=== PATIENT | female | born 1970 | race Caucasian/White ===

== ENCOUNTER 2020-03-22 01:42 | Outpatient (RCR) | payer OTHER, MEDICAID, SELFPAY ==
--- OUTSIDE RECORDS SUMMARY | 2020-03-22 01:51 | XMS_ITS | Encounter Summary ---
:1970 Author Care Team Providers Name Role Phone Amy Hicks MD Primary Care Provider [phone] Gonzalo Dumont MD General Surgeon [phone] Reason for Visit breast Assessment and Plan 1. Malignant tumor of breast 49-year-old female with a trip le negative, node positive right breast cancer. We talked about the nature of the diagnosis as well as possible surgical options with her young age and a triple n egative tumor I would like her to see on cology prior to discussing surgery. A referral has been made to the [facility]. Discussion Note: None recorded.Patient educational handouts: No information available. Plan of Care Reminders Provider Appointments Opioid Amy padilla, Management 20 05/11/2020 8:40AM Lab None recorded. ? ? Referral None recorded. ? ? Procedures None recorded. ? ? Surgeries None recorded. ? ? Imaging None recorded. ? ? Medications Name Start Date ? ? alprazolam 0.5 mg tablet 03/10/2020 1-3 tabs every 4 hrs prn severe panic attack for 10 d ays carbidopa 25 mg-levodopa 100 mg tablet 03/10/2020 pm cyclobenzaprine 10 mg tablet 03/10/2020 pm enalapril maleate 5 mg tablet 03/10/2020 TAKE ONE TABLET BY MOUTH EVERY DAY folic acid 1 mg tablet 03/10/2020 am hydrocodone 10 mg-acetaminophen 325 mg tablet ? Take 1 tablet 3 times a day by oral route as needed f or 28 days. Keflex 500 mg capsule ? Take 1 capsule 3 times a day by oral route for 5 days . ketorolac 10 mg tablet 03/10/2020 Take 1 tablet twice a day by oral route as needed for 3 days. levothyroxine 112 mcg tablet 03/10/2020 TAKE ONE TABLET BY MOUTH EVERY DAY am lorazepam 0.5 mg tablet 03/10/2020 Take 1 tablet 3 times a day by oral route as needed. lorazepam 1 mg tablet ? Take 1 tablet twice a day by oral route for 28 days. metoprolol succinate ER 25 mg tablet,extended release 24 hr 03/10/2020 pm Narcan 4 mg/actuation nasal spray 03/10/2020 Take 1 spray as needed by nasal route. omeprazole 40 mg capsule,delayed release 03/10/2020 Take 1 capsule every day by oral route. senna 8.6 mg tablet 03/10/2020 Take 2 tablets every day by oral route. Viibryd 40 mg tablet 03/10/2020 am Vitamin B-12 1,000 mcg tablet 03/10/2020 am zolpidem 5 mg tablet 03/10/2020 pm Medications Administered None recorded. Vitals Height 5 ft 4 in Results Lab Results None recorded. Allergies Code Code System Name Reaction Severity Onset RxNorm Azithromycin Nausea ? ? 8639 RxNorm Prednisone ? ? ? Problems Name Status Onset Date Source ? 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 Panic Attack Active 01/02/2018 ? Urinary Incontinence Active 11/27/2018 ? Malignant Neoplasm of Female Breast Active 02/04/2020 ? Multiple Nodules of Lung Active 02/23/2020 ? Hypothyroidism Active ? History Diabetes Mellitus Active ? History Lipoprotein Deficiency Disorder Active ? History Anemia Active ? History Adjustment Disorder with Depressed Mood Active ? History Adjustment Disorder with Anxious Mood Active ? History Insomnia Active ? History Restless Legs Active ? History Migraine Active ? History Gastroduodenitis Active ? History Irritable Bowel Syndrome Active ? History Degeneration of Lumbosacral Intervertebral Active ? History Disc Cervical Disc Disorder Active ? History Lumbosacral Radiculopathy Active ? 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 History Therapeutic Drug Monitoring Assay Active ? History Adult Health Examination Active ? History Procedures Date Name Performed by ? 03/10/2020 Port Vascular Access Insertion Informati on not available Notes: Power port via Right IJ vein. 02/18/2020 Excision of Lymph Node Information not a vailable Notes: Lymphadenectomy, t horacic, regional, incl. mediastinal, Peritracheal Nodes 02/18/2020 Thoracoscopy Information not avai lable Notes: [facility] [place] 01/08/2018 Upper Gastrointestinal Endoscopy, W/ Inf ormation not available Balloon Dilation of Esophagus (Surg) 11/19/2005 Hernia Repair Information not avai lable 11/19/2005 Cholecystectomy Information not avai lable 10/04/2005 Section Information not avai lable Notes: elective repeat 10/04/2005 Tubal Ligation Information not avai lable 04/01/2001 Section Information not avai lable Notes: Breech 05/30/1989 Cryotherapy Information not avai lable ? Dilation and Curettage Information not a vailable 12/31/2019 MAMMO, Diagnostic, Tomosynthesis, [facility] Radiology (Internal) Unilateral [address] [place] [address] (Work Place) 12/31/2019 US, Breast, Unilateral [facility] pital Radiology (Internal) [address] [place] [address] (Work Place) 01/01/2020 MAMMO, Diagnostic, Tomosynthesis, [facility] Radiology (Internal) Bilateral [address] [place] [address] (Work Place) 01/01/2020 US, Guidance [facility] ([facility]) [address] [place] [address] (Work Place) 01/05/2020 Unlisted Imaging Order [facility] pital Radiology (Internal) [address] [place] [address] (Work Place) 01/12/2020 MAMMO, Diagnostic, Digital, Unilateral N [facility] Radiology (Internal) [address] [place] [address] (Work Place) 01/18/2020 CT, Chest + Abdomen + Pelvis, [place] [facility] [place] [address] (Work Place) Vaccine List Vaccine Type Hep B, adult 06/30/1996 03/03/2015?0.5 mL influenza, injectable, quadrivalent 02/14/2016?0.5 mL 01/08/2018 12/23/2018 01/07/2020 influenza, live, intranasal 01/04/2009 influenza, seasonal, injectable 12/28/2011 influenza, seasonal, injectable, preserv ative free 01/10/2010?0.5 mL 12/25/2010?0.5 mL 12/25/2012?0.5 mL 12/29/2013?0.5 mL 01/02/2017?0.5 mL MMR Tdap 11/28/2010?0.5 mL varicella Social History Tobacco Smoking Status Former Smoker Notes: quit Are you currently employed? Y Use IV drugs? N Blind or serious difficulty N Notes: We ars corrective seeing lenses, vision is co rrected Most Recent Tobacco Use 12/31/2019 Screening E-cigarette/Vape Status Never used electronic cigarettes Advance directive N Do you feel safe at home? Y Any marijuana use? N Tobacco-years of use 18 Any Vapor tobacco use? N Hand Dominance Right Live alone or with others? with others Notes: neeru es with 3 children Illicit drug use? N Alcohol intake None Smokeless Tobacco Status Never used smokeless tobacco Any cough, shortness of N breath, or fever? Current Method of Notes: bilat salpingectomy Control Hard of hearing or deaf in N one or both ears? Caffeine intake Occasional Drug Use N Currently or any N chance of current ? Location of recent travel none and date; or date of exposure to COVID19 patient? 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 Functional Status No Impairment. Past Encounters 01/18/2020 Malignant Tumor of Breast Gonzalo Dumont MD: [address] [place] [address], Ph. 01/15/2020 Malignant Neoplasm of Female Breast Yessy Whitaker, SHAYYM: [address] [place] [address], Ph. 01/01/2020 Mammographic Mass of Right Breast Yessy Whitaker, CNM: [address] [place] [address], Ph. 12/31/2019 Lump in Right Breast Yessy Whitaker, SHAYYM: [address] [place] [address], Ph. History of Present Illness Note: <p>49-year-old female seen for a right breast mass. Patient notes that she was trying on a bra about 6 weeks ago when she noticed a new finding in her right breast. She sought the attention of her primary care physician and subsequently had a mammogram as well as ultrasound of the breast. She then had a ultrasound directed breast and axillary node biopsy.

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 She had necrotic cells as well as tumor cells in the axillary node. Patient has no prior history of breast issues. Family history is negative for breast cancer.
</p> Review of Systems ? Notes: <p>Review of systems is nega tive from the standpoint of chest pain pressure previous ND. No cough sputum production or wheezing. She has a history of reflux but no outstanding hi story of abdominal pain. No history of melena hematochezia easy bleeding o r bruising.
</p> Physical Exam ? Notes: <p>On examination skin is wa rm and dry, her neck is supple there is no cervical or left axillary ad enopathy. In the right axilla she has a 1 cm firm node in the low axilla. Left breast examination is unremarkable. Examination of the right breast shows th e expected ecchymosis from her recent biopsies. She has a 2-1/2 to 3 cm mass in the 9:00 location of her right breast about 4 fingerbreadths lateral to th e areola. Her abdomen is soft, and nontender. She is neurologically intact.
</p>
--- OUTSIDE RECORDS SUMMARY | 2020-03-22 01:51 | XMS_ITS | Encounter Summary ---
:1970 Author Care Team Providers Name Role Phone Amy Hicks MD Primary Care Provider [phone] Gonzalo Dumont MD General Surgeon [phone] Reason for Visit Patient here to discuss Mammogram result s Assessment and Plan 1. Mammographic mass of right br east Pt aware, will schedule PATRICE. ? platelets, auto, blood ? prothrombin time ? partial thromboplastin merrick e ? US, guidance Discussion Note: None recorded.Patient educational handouts: No information available. Plan of Care Reminders Provider Appointments Opioid Management Amy Hicks, 20 05/11/2020 8:40AM Lab Platelets, Auto, [facility] Blood 01/01/2020 Hospital Lab (Internal) ? Prothrombin Time [facility] 01/01/2020 Hospital Lab (Internal) ? Partial [facility] ntr Thromboplastin Time 01/01/2020 Hospital Lab (Internal) Referral None recorded. ? ? Procedures None recorded. ? ? Surgeries None recorded. ? ? Imaging US, Guidance [facility] 01/01/2020 [facility] Radiolo gy (Internal) Medications Name Start Date ? ? alprazolam [...] 03/10/2020 pm Medications Administered None recorded. Vitals None recorded. Results Lab Results Date Name Specimen Result Interpretation Description Value Range Status Address ? 01/04/2020 Platelets, Auto, BLD ? Plt 223 130-450 Fi [facility] Blood 10*3/uL 10*3/uL Hospital Lab (Internal) : [address] 01/04/2020 Prothrombin Time BLD ? Pt 9.9 S 9.1-11.7 F inal [facility] L ab (Internal) : [address] ? ? BLD ? Inr 1.0 ? Final [facility] L ab (Internal) : [address] 01/04/2020 Partial BLD ? PTT 26 s 22-35 s Final [facility] Thromboplastin (Ip) Ho spital Lab Time (Internal) : [address] Allergies Code Code System Name Reaction Severity Onset 67225 RxNorm Azithromycin Nausea ? ? 8640 RxNorm Prednisone ? ? ? Problems Name [...] 02/18/2020 Thoracoscopy Information not avai lable Notes: [facility] 01/08/2018 Upper Gastrointestinal Endoscopy, W/ Inf ormation [...] not a vailable 12/31/2019 MAMMO, Diagnostic, Tomosynthesis, [facility] Radiology (Internal) Unilateral [address] [place] [address] (Work Place) 12/31/2019 US, Breast, Unilateral [facility] pital Radiology (Internal) [address] [place] [address] (Work Place) 01/01/2020 MAMMO, Diagnostic, Tomosynthesis, [facility] Radiology (Internal) Bilateral [address] [place] [address] (Work Place) 01/01/2020 US, Guidance [facility] Radiology (Internal) [address] [place] [address] (Work Place) Vaccine List Vaccine Type Hep [...] of exposure to COVID19 patient? 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 Functional Status No Impairment. Past Encounters 01/01/2020 Mammographic Mass of Right Breast Yessy Whitaker, SEAN: [address] [place] [address], Ph. 12/31/2019 Lump in Right Breast Yessy Whitaker CNM: [address] [place] [address], Ph. History of Present Illness Note: <p>Reviewed Bi-RADS category 5 results with pt, fact that there are some axillary lymph nodes that are involved.</p>Review of Systems: ROS as noted in the HPI Review of Systems None recorded. Physical Exam ? Notes: <p>Cooperative, well-groomed woman appropriately upset given the news she received today.</p>
--- OUTSIDE RECORDS SUMMARY | 2020-03-22 01:51 | XMS_ITS | Encounter Summary ---
:1970 Author Care Team Providers Name Role Phone Amy Hicks MD Primary Care Provider [phone] Gonzalo Dumont MD General Surgeon [phone] Reason for Visit None recorded. Assessment and Plan 1. Malignant neoplasm of female breast Patient has appointment mandi mcguire scheduled with Dr. Dumont for next . I called his office, and they will see her on Saturday. Discussion Note: None recorded.Patient educational handouts: No information available. Plan of Care Reminders Provider Appointments Opioid Amy padilla, Management 05/11/2020 8:40AM Lab None recorded. ? ? [...] recorded. Vitals None recorded. Results Lab Results None recorded. Allergies Code Code System Name Reaction Severity Onset RxNorm Azithromycin Nausea ? ? 86 RxNorm Prednisone ? ? ? Problems Name [...] 02/18/2020 Thoracoscopy Information not avai lable Notes: [facility] [place] 01/08/2018 Upper Gastrointestinal Endoscopy, W/ Inf ormation [...] not a vailable 12/31/2019 MAMMO, Diagnostic, Tomosynthesis, [facility] Radiology (Internal) Unilateral [address] [place] [address] (Work Place) 12/31/2019 US, Breast, Unilateral [facility] Radiology (Internal) [address] [place] [address] (Work Place) 01/01/2020 MAMMO, Diagnostic, Tomosynthesis, [facility] Radiology (Internal) Bilateral [address] [place] [address] (Work Place) 01/01/2020 US, Guidance [facility] Radiology (Internal) [address] [place] [address] (Work Place) 01/05/2020 Unlisted Imaging Order [facility] Radiology (Internal) [address] [place] [address] (Work Place) 01/12/2020 MAMMO, Diagnostic, Digital, Unilateral N [facility] Radiology (Internal) [address] [place] [address] (Work Place) Vaccine List Vaccine Type Hep B, adult 06/30/1996 03/03/2015?0.5 mL influenza, injectable, quadrivalent 02/14/2016?0.5 mL 01/08/2018 12/23/2018 01/07/2020 influenza, live, intranasal 01/04/2009 influenza, seasonal, injectable 12/28/2011 influenza, seasonal, injectable, preserv ative free 01/10/2010?0.5 mL 12/25/2010?0.5 mL 12/25/2012?0.5 mL 12/29/2013?0.5 mL 01/02/2017?0.5 mL MMR Tdap 11/28/2010?0.5 mL varicella Social History Tobacco Smoking Status Former Smoker Notes: quit 20 00 Are you currently employed? Y Use IV [...] of exposure to COVID19 patient? 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 Functional Status No Impairment. Past Encounters 01/15/2020 Malignant Neoplasm of Female Breast Yessy Whitaker, SHAYYM: [address] [place] [address], Ph. 01/01/2020 Mammographic Mass of Right Breast Yessy Whitaker, SHAYYM: [address] [place] [address], Ph. 12/31/2019 Lump in Right Breast Yessy Whitaker, SHAYYM: [address] [place] [address], Ph. History of Present Illness Note: <p>Here for results discussion.</p>Review of Systems: ROS as noted in the HPI Review of Systems None recorded. Physical Exam ? Notes: <p>Cooperative, well-groomed woman appropriately upset given diagnosis.</p>
--- OUTSIDE RECORDS SUMMARY | 2020-03-22 01:51 | XMS_ITS | Encounter Summary ---
:1970 Author Care Team Providers Name Role Phone Amy Hicks MD Primary Care Provider [phone] Gonzalo Dumont MD General Surgeon [phone] Reason for Visit Patient reports breast lump right breast that is a little larger than a pea. No family hx of breast cancer. Lump is suhas nful. Patient's last Mammo was 2018. Assessment and Plan 1. Lump in right breast Imaging ordered. [facility] call [facility] h results when available. ? MAMMO, diagnostic, tomosyn thesis, unilateral ? US, breast, unilateral Discussion Note: None recorded.Patient educational handouts: No information available. Plan of Care Reminders Provider Appointments Opioid Amy padilla, Management 20 05/11/2020 8:40AM Lab None recorded. ? ? Referral None recorded. ? ? Procedures None recorded. ? ? Surgeries None recorded. ? ? Imaging MAMMO, [facility] try Diagnostic, 12/31/2019 [facility] Radiolo gy Tomosynthesis, (Internal) Unilateral ? US, Breast, [facility] Unilateral 12/31/2019 [facility] Radiolo gy (Internal) Medications Name Start Date [...] pm Medications Administered None recorded. Vitals Height Weight BMI Blood Pressure 5 ft 4 in 181 lbs 31.1 kg/m2 120/70 mm[Hg] Results Lab Results None recorded. Allergies Code Code System Name Reaction Severity Onset 97446 RxNorm Azithromycin Nausea ? ? 8640 RxNorm [...] 02/18/2020 Thoracoscopy Information not avai [place]able Notes[place] [facility] [place] Upper Gastrointestinal Endoscopy, W/ Inf [...] not a vailable 12/31/2019 MAMMO, Diagnostic, Tomosynthesis, [facility] Radiology (Internal) Unilateral [address] [place], [place] [id number] (Work Place) 12/31/2019 US, Breast, Unilateral [facility] Radiology (Internal) [address] [place] [address] (Work Place) Vaccine List Vaccine Type [...] rrected Most Recent Tobacco Use 12/31/2019 Screening Advance directive N E-cigarette/Vape Status Never used electronic cigarettes Do you feel safe at home? Y Any marijuana use? N Tobacco-years of use 18 Any Vapor tobacco use? N Alcohol intake None Illicit drug use? N Live alone or with others? with others Notes: neeru es with 3 children Hand Dominance Right Smokeless Tobacco Status Never used smokeless tobacco Any cough, shortness of N breath, or fever? Current Method of Notes: bilat salpingectomy Control Hard of hearing or deaf in N one or both ears? Caffeine intake Occasional Drug Use N Currently or any N chance of current ? Location of recent travel none and date; or date of exposure to COVID19 patient? 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 Functional Status No Impairment. Past Encounters 12/31/2019 Lump in Right Breast Yessy Whitaker, CNM: [address] [place] [address], Ph. History of Present Illness ? Breast Mass Reported By: Patient HPI: Location: right, upper outer quadrant. Onset/Timin day, sudden. Quality: painful, radiating. Severity: moderate. Modifying Factors: touch, pressure. Associated Symptoms: no fever, no skin redness, no nipple discharge, no breast swelling, arm pain Review of Systems: ROS as noted in the HPI Review of Systems None recorded. Physical Exam ? Breast Exam Reported By: Patient Shearing Machine Tender: Shearing Machine Tender: enzo morrow Breast: Inspection/Palpation: no ski n changes, no erythema, no induration, no abnormal secretions, normal nipple appearance, non tender axillary lymph nodes, abnormal tenderness o f the right breast, mass in the right breast
--- OUTSIDE RECORDS SUMMARY | 2020-03-22 01:51 | XMS_ITS ---
:1970 Author Care Team Providers Name Role Phone DORENE DUMONT MD General Surgeon [phone] NAM IGLESIAS MD Primary Care Provider [phone] Allergies Code Code Name Reaction Severity Status Onset System 73749 RxNorm Azithromycin Nausea ? Active ? 8640 RxNorm Prednisone ? ? Active ? 390443 RxNorm Dilaudid ? ? Deactivated ? 020801 RxNorm Zithromax ? ? Deactivated ? Medications Name Status Start Date Stop Date ? ? acetaminophen 300 mg-codeine 30 mg tablet Completed 201110/18/2011 1 (one) Tablet: every six hours, as needed acyclovir 400 mg tablet Completed ? 03/04/20 20 alprazolam 0.5 mg tablet Active 03/10/2020 Not pratik ilable 1-3 tabs every 4 hrs prn severe panic attack for 10 days amoxicillin 500 mg capsule Completed 01/09/201301/16 1 Capsule: bid - twice daily amoxicillin 500 mg tablet Completed 03/21/20162016 1 (one) Tablet: bid - twice daily amoxicillin 875 mg tablet Completed 04/12/20112011 1 (one) Tablet: Bid - twice daily amoxicillin 875 mg-potassium clavulanate 125 mg tablet Completed 05/29/2011 06/08/2011 1 Tablet: bid - twice daily atropine 1 % eye drops Completed ? 0 amoxicillin 500 mg-potassium Active ? Not available clavulanate 125 mg tablet biotin Completed ? 03/18/2018 5000mg daily carbidopa 25 mg-levodopa 100 mg tablet Active 0 Not available pm Celebrex 200 mg capsule Completed 05/29/2013 09/02/19 14 1 (one) Capsule Capsule: qd - daily Cleocin 100 mg vaginal suppository Completed 05/16/2005 11/22/2009 1 (one) Suppository: Daily Compazine 25 mg rectal suppository Completed 03/29/2005 02/27/2006 1 (one) Suppository: Twice daily cortisone Completed ? 11/27/2018 BID cyclobenzaprine 10 mg tablet Active 03/10/2020 Not available pm Cymbalta 30 mg capsule,delayed release Completed 3 04/11/2012 1 (one) Capsule Part: daily Cymbalta 60 mg capsule,delayed release Completed 4 10/13/2013 2 (two) Capsule Part: daily cyproheptadine 4 mg tablet Completed ? 02/16 desipramine 10 mg tablet Completed 05/04/2014 015 3 Tablet: at bedtime Diflucan 100 mg tablet Completed 08/02/2011 2 1 (one) Tablet: qam - every morning Dilaudid 4 mg tablet Completed 04/28/2013 04/28/2013 1.5 to two Tablet: every 4 - 6 hours as needed for sciatica docusate sodium 100 mg capsule Completed ? 1 05/05/2019 Take 1 capsule twice a day by oral route for 10 days. doxycycline hyclate 100 mg tablet Completed 12/21/2015 12/31/2015 1 (one) Tablet: bid - twice daily enalapril maleate 5 mg tablet Active 03/10/2020 No t available esomeprazole magnesium 40 mg capsule,delayed release Completed 07/04/2017 07/04/2017 1 (one) Capsule: qd - daily estradiol 0.01% (0.1 mg/gram) Completed ? vaginal cream Estring 2 mg (7.5 mcg/24 hour) Completed ? 0 11/26/2019 vaginal ring Fish Oil 340 mg-1,000 mg capsule Completed 05/04/2010 11/28/2010 1 (one) Capsule: daily fluoxetine 20 mg capsule Completed ? 018 fluoxetine 40 mg capsule Completed ? 018 folic acid 1 mg tablet Active 03/10/2020 Not avail able am folic acid 400 mcg tablet Completed 05/16/20052009 4 Tablet: Daily hydrocodone 10 mg-acetaminophen 325 mg tablet Active ? Not available Take 1 tablet 3 times a day by oral route as needed for 28 days . hydroxyzine HCl 10 mg tablet Completed 04/28/2013 1 Tablet: daily at night if needed for itch. isosorbide dinitrate 10 mg tablet Completed 09/17/2014 10/06/2014 1 (one) Tablet: daily Keflex 500 mg capsule Active ? Not availa ble Take 1 capsule 3 times a day by oral route for 5 days. ketorolac 10 mg tablet Active 03/10/2020 Not avail able Take 1 tablet twice a day by oral route as needed for 3 days. lactulose 10 gram/15 mL oral solution Completed 07/07/2013 07/07/2013 1-2 Tablespoon(s): daily prn constipation levothyroxine 100 mcg tablet Completed ? Take 1 tablet every day by oral route for 30 days. levothyroxine 112 mcg tablet Active 03/10/2020 Not available TAKE ONE TABLET BY MOUTH EVERY DAY am levothyroxine 25 mcg tablet Completed ? 01/30 Take 0.5 tablets every day by oral route for 30 days. loratadine 10 mg tablet Completed 04/28/2013 05/22/19 14 1 Tablet: daily for itching lorazepam 0.5 mg tablet Active 03/10/2020 Not avai lable Take 1 tablet 3 times a day by oral route as needed. lorazepam 1 mg tablet Active ? Not availa ble Take 1 tablet twice a day by oral route for 28 days. meclizine 12.5 mg tablet Completed ? 018 metoprolol succinate ER 25 mg tablet,extended release 24 hr Acti ve 03/10/2020 Not available pm metronidazole 0.75 % topical gel Completed 04/24/2010 04/29/2010 1 Gel: one applicator intravaginal qhs metronidazole 500 mg tablet Completed 03/02/201409/2013 1 (one) Tablet: bid - twice daily Narcan 4 mg/actuation nasal spray Active 03/10/2020 Not available Take 1 spray as needed by nasal route. Neurontin 100 mg capsule Completed 04/11/2012 013 1 Capsule: at hs and may increase slowly to six Qhs Nifedical XL 30 mg tablet,extended release Completed 06/2311/28/2010 1 Tablet ER 24HR: daily nystatin (bulk) 50 million unit powder Completed 3 04/11/2012 Apply Powder: three times daily to yeast rash. ofloxacin 0.3 % ear drops Completed 11/28/20102010 10 Drop(s): once a day ofloxacin 0.3 % eye drops Completed ? 2018 omeprazole 20 mg Unknown ? Not available capsule,delayed release omeprazole 40 mg capsule,delayed release Active 020 Not available Take 1 capsule every day by oral route. ondansetron HCl 4 mg tablet Completed 05/31/201509/2015 1 (one) Tablet Tablet: every six hours, as needed if migraine oxycodone 5 mg capsule Completed 10/13/2013 4 2 Capsule: Every 4 to 6 hours as needed pantoprazole 40 mg tablet,delayed release Completed 201210/08/[address]: daily prednisolone acetate 1 % eye Completed ? drops,suspension prednisone Completed ? 03/18/2018 Eye drops to right eye Q 2 hours prednisone 10 mg tablet Completed 04/02/2013 04/16/19 14 3 (three) Tablet: in AM for 14 days ProAir HFA 90 mcg/actuation Completed ? 08/2017 aerosol inhaler promethazine 25 mg tablet Completed 01/19/20152014 1 Tablet: Every 6 hours as needed Questran 4 gram powder for susp in a packet Completed 09/2910/08/2012 quarter - half Packet: QD to bid ranitidine 300 mg tablet Completed 08/12/2013 014 1 (one) Tablet Tablet: two times daily, as needed selenium sulfide 2.5 % lotion Completed 11/22/2009 senna 8.6 mg tablet Active 03/10/2020 Not availabl e Take 2 tablets every day by oral route. Terazol 3 0.8 % vaginal cream Completed 04/11/2012 Apply Cream: to rash area tid Terazol 7 0.4 % vaginal cream Completed 09/29/2010 Apply to vulva Cream: bid before & during period. triamcinolone acetonide 0.025 Completed ? % topical cream triamcinolone acetonide 0.1 % topical cream Completed 10/3111/22/2009 1 (one) Application(s): three times daily Viibryd 10 mg (7)-20 mg (23) Completed ? tablets in a dose pack Viibryd 20 mg tablet Completed ? 11/27/2017 Viibryd 40 mg tablet Active 03/10/2020 Not availab le am Vitamin B-12 1,000 mcg tablet Active 03/10/2020 N ot available am zolpidem 5 mg tablet Active 03/10/2020 Not availab le pm zolpidem ER 6.25 mg tablet,extended release,multiphase Completed 08/18/2015 08/18/2015 1 (one) Tablet ER: at bedtime Problems Name Status Onset Date Source ? 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 Panic Attack Active 01/02/2018 ? Tendinitis of Elbow or Forearm Unknown 09/08/2018 ? Urinary Incontinence Active 11/27/2018 ? Malignant Neoplasm of Female Breast Active 02/04/2020 ? Multiple Nodules of Lung Active 02/23/2020 ? Hypothyroidism Active ? History Diabetes Mellitus Active ? History Lipoprotein Deficiency Disorder Active ? History Anemia Active ? History Dysthymia Unknown ? History Adjustment Disorder with Depressed Mood Active ? History Adjustment Disorder with Anxious Mood Active ? History Insomnia Active ? History Restless Legs Active ? History Migraine Active ? History Mononeuritis of Upper Limb and Unknown ? H istory Mononeuritis Multiplex Uveitis Unknown ? History Labyrinthitis Unknown ? History Acute Bronchitis Unknown ? History Disorder of Upper Respiratory System Unknown ? History Pneumonia Unknown ? History Disorder of Esophagus Unknown ? History Gastroduodenitis Active ? History Acute Gastritis Unknown ? History Irritable Bowel Syndrome Active ? History Vulvovaginitis Unknown ? History Localized Infection of Skin AND/OR Unknown ? History Subcutaneous Tissue Joint Pain Unknown ? History Degeneration of Lumbosacral Active ? Hist ory Intervertebral Disc Cervical Disc Disorder Active ? History Sciatica Unknown ? History Lumbosacral Radiculopathy Active ? Histor y Backache Unknown ? History Congenital Anomaly of Esophagus Active ? History Pyrexia of Unknown Origin Unknown ? Histor y Lack of Energy Unknown ? History Headache Unknown ? History Dyspnea Unknown ? History Cough Unknown ? History Chest Pain Unknown ? History Impaired Glucose Tolerance Unknown ? Histo ry Hyperglycemia Unknown ? History Abnormal Level of Blood Mineral Unknown ? History Active Immunization Unknown ? History Therapeutic Drug Monitoring Assay Active ? History Adult Health Examination Active ? History Disorder of Esophagus Unknown ? History SNOMED CT Concept Unknown ? History Inflammatory Disorder of Digestive Tract Unknown ? History Procedure by Method Unknown ? History Enzyme Level - Finding Unknown ? History Procedures Date Name Performed by ? 03/10/2020 Port Vascular Access Insertion Informati on not available Notes: Power port via Right IJ vein. 02/18/2020 Excision of Lymph Node Information not a vailable Notes: Lymphadenectomy, t horacic, regional, incl. mediastinal, Peritracheal Nodes 02/18/2020 Thoracoscopy Information not avai lable Notes: [facility] 01/08/2018 Upper Gastrointestinal Endoscopy, W/ Inf ormation [...] Dilation and Curettage Information not a vailable 02/26/2018 MAMMO, Screening, Tomosynthesis, [facility] Radiology (Internal) Bilateral [address] [place] [address] (Work [address]) 05/14/2019 XR, Cervical Spine, 4 or 5 View [facility] Radiology (Internal) [address] [place] [address] (Work Place) 12/31/2019 MAMMO, Diagnostic, Tomosynthesis, [facility] Radiology (Internal) Unilateral [address] [place] [address] [address] (Work Place) 12/31/2019 US, Breast, Unilateral [facility] (Internal) [address] [place] [address] (Work Place) 01/01/2020 MAMMO, Diagnostic, Tomosynthesis, [facility] Radiology (Internal) Bilateral [address] [place] [address] (Work Place) 01/01/2020 US, Guidance [facility] ([facility]) [address] [place] [address] [address] (Work Place) 01/05/2020 Unlisted Imaging Order [facility] (Internal) [address] [place] [address] [address] (Work Place) 01/12/2020 MAMMO, Diagnostic, Digital, Unilateral N orth [facility] Radiology (Internal) [address] [place] [address] (Work Place) 01/18/2020 CT, Chest + Abdomen + Pelvis, W/ [facility] (I maging/Xray) [place] [address] (Work Place) 01/22/2020 NM, Bone Scan [facility] (Imaging/Xray) [place] [address] (Work Place) 01/22/2020 CT, Chest + Abdomen + Pelvis, W/ [facility] (I maging/Xray) [place] [address] (Work Place) Results Lab Results Date Name Specimen Result Interpretation Description Value Range Status Address ? 02/17/2020 Drug Screen, UR ? Thc negative neg (50 [place] Urine NG/mL NG/mL) [facility] : [address] t ? ? UR ? Pcp negative neg (25 Final [facility] NG/mL) [facility] ab (Internal) : [address] t ? ? UR ? Mague negative neg (150 [facility] [place] NG/mL) [facility] (Internal) : [address] t ? ? UR ? Met negative neg (500 Final [place] NG/mL) [facility] ab (Internal) : [address] t ? ? UR ABNORM Opi positive neg (100 [facility] [place] AL NG/mL) [facility] L ab (Internal) : [address] t ? ? UR ? Amp negative neg (500 Final [place] NG/mL) [facility] (Internal) : [address] t ? ? UR ? Bzo negative neg (150 Final [place] NG/mL) [facility] (Internal) : [address] t ? ? UR ABNORM Tca positive neg (300 Final [place] AL NG/mL) [facility] ab (Internal) : [address] t ? ? UR ? Mtd negative neg (200 [facility] [place] NG/mL) [facility] L [facility] (Internal) : [address] ? ? UR ? Bar negative neg (200 [facility] [place] NG/mL) [facility] (Internal) : [address] ? ? UR ? Oxy negative neg (100 [facility] [place] NG/mL) [facility]) : [address] ? ? UR ? Ppx negative neg (300 [facility] [place] NG/mL) [facility] (Internal) : [address] ? ? UR ? Bup negative neg (10 Final [place] NG/mL) [facility] (Internal) : [address] 02/17/2020 CBC W/ Auto BLD Low Wbc 4.5 5.0-10.0 Final [place] Diff 10*3/uL 10*3/uL [facility] L ab (Internal) : [address] ? ? BLD Low Rbc 4.07 4.10-5.30 Final [place] 10*6/uL 10*6/uL [facility] (Internal) : [address] t ? ? BLD ? Hgb 13.2 g/dL 12.0-16.0 Final Nort h g/dL [facility] L [facility] (Internal) : [address] t ? ? BLD ? Hct 39.5 % 37.0-47.0 Final [facility] L ab (Internal) : [address], [place] t ? ? BLD High Mcv 97.1 fL 80.0-96.0 Final [facility] L ab (Internal) : [address] t ? ? BLD High Mch 32.4 pg 26.0-32.0 Final [place] pg [facility] L ab (Internal) : [address] t ? ? BLD ? Mchc 33.4 g/dL 31.0-35.0 Final Nort h g/dL [facility] L ab (Internal) : [address] t ? ? BLD ? Rdw 12.0 % 11.5-14.5 Final [facility] L ab (Internal) : [address] t ? ? BLD ? Plt 209 130-450 Final [place] 10*3/uL 10*3/uL [facility] L ab (Internal) : [address] t ? ? BLD ? Anc 3.11 ? Final [place] 10*3/uL [facility] L [facility] (Internal) : [address] t ? ? BLD ? Nlr 3.08 0.00-3.20 Final [facility] (Internal) : [address] t ? ? BLD ? Neutro 68.6 % 40.0-75.0 Final [facility] L [facility] (Internal) : [address] t ? ? BLD ? Lymph 22.2 % 20.0-50.0 Final [facility] L [facility] (Internal) : [address] t ? ? BLD ? Calvert 6.6 % 2.0-10.[address] [facility] L ab (Internal) : [address] t ? ? BLD ? Eos 2.0 % 1.0-6.0 % Final [facility] L ab (Internal) : [address] t ? ? BLD ? Baso 0.4 % 0.0-1.0 % Final [facility] L ab (Internal) : [address] t ? ? BLD ? Ig 0.2 % 0.0-0.9 % Final [facility] (Internal) : [address] t 02/17/2020 CMP, Serum or S ? g/r 97 mg/dL 74-106 [place] Plasma mg/dL [facility] L ab (Internal) : [address] t ? ? S ? Bun 16 mg/dL 7-17 Final [place] mg/dL [facility] L [facility] (Internal) : [address] t ? ? S ? Crea 1.00 mg/dL 0.52-1.04 Final Nor th mg/dL [facility] L ab (Internal) : [address] t ? ? S High Ca 10.4 mg/dL 8.4-10.2 Final Nort h mg/dL [facility] L ab (Internal) : [address] t ? ? S ? Na 139 mmol/L 137-145 Final [place] mmol/L [facility] L [facility] (Internal) : [address] t ? ? S ? K 4.4 mmol/L 3.5-5.1 Final [facility] mmol/L [facility] : [address] t ? ? S ? Cl 102 mmol/L 98-107 Final [facility] mmol/L [facility] : [address] t ? ? S ? Tco2 28.0 22.0-30.0 Final [facility] mmol/L mmol/L [facility] ([facility]) : [address] t ? ? S ? Tp 7.9 g/dL 6.3-8.2 Final [facility] g/dL [facility] ([facility] : [address] t ? ? S ? Alb 4.8 g/dL 3.5-5.0 Final [facility] g/dL [facility] ([facility] : [address] t ? ? S ? Tbil 0.7 mg/dL 0.2-1.3 Final [facility] mg/dL [facility] ([facility] : [address] t ? ? S ? Alp 83 U/L 50-136 Final [facility] U/L [facility] ([facility] : [address] t ? ? S ? Alt 28 U/L 9-52 U/L Final [facility] (Sgpt) [facility]Internal[facility] : [address] t ? ? S ? Ast 28 U/L 14-36 U/L Final [place] (Sgot) [facility] (Internal[facility] : [address] t 02/17/2020 T4, Free, S ? Ft4 1.10 NG/dL 0.78-2.19 Fin al [facility] Serum NG/dL [facility] ([facility] : [address] t 02/17/2020 Lipid Panel, S High Chol 249 mg/dL 50-200 [place] Serum mg/dL [facility] (Internal[facility] : [address] t ? ? S High Trig 217 mg/dL 10-150 Final [facility] mg/dL [facility] ([facility]) : [address] t ? ? S Low Hdl 36 mg/dL 40-60 Final [facility] mg/dL [facility] (Internal[facility] : [address] t ? ? S High Ldl 170 mg/dL 0-130 Final [facility] mg/dL [facility] (Internal) : [address] [place] 02/17/2020 TSH, Serum or S High Tsh 4.81 0.47-4.68 Fin al [place] Plasma u[IU]/mL u[IU]/mL [facility] L ab (Internal) : [address] 02/17/2020 HbA1C BLD ? Ha1C 5.1 % 4.0-6.0 % Final Nor th (Hemoglobin Count ry a1C), Blood Hospi mario Lab (Internal) : [address] 02/17/2020 Opiates, UR ? Codeine negative <50.0 Final [place] Qualitative, NG/mL NG/mL [facility] L ab (Internal) : [address] t ? ? UR ? Morphin negative <50.0 Final [place] e NG/mL NG/mL [facility] (Internal) : [address] t ? ? UR High Hydroco 1959.2 <50.0 Final [place] done NG/mL NG/mL [facility] (Internal) : [address] t ? ? UR High Hydromo 1227.4 <50.0 Final [place] rphone NG/mL NG/mL [facility] L ab (Internal) : [address] t ? ? UR ? Oxycodo negative <50.0 Final [place] ne NG/mL NG/mL [facility] (Internal) : [address] t ? ? UR ? Oxymorp negative <50.0 Final [place] ani NG/mL NG/mL [facility] (Internal) : [address] 02/17/2020 Tricyclic UR ? Specime urine ? Final N orth Antidepressan n Type Cou ntry ts, QN, Hospital Lab Screen, Urine (In ternal): [address] t ? ? UR ? Antidep ++positive ? Final Nort h ressant ++ [facility] L ab (Internal) : [address] t ? ? UR ? Amitrip negative ? Final [facility] (Internal[facility] : [address] [place] ? ? UR ? Nortrip negative ? Final [facility] Hospital L ab (Internal) : [address], [place] ? ? UR ? Imipram negative ? Final [facility] L ab (Internal) : [address], [place] ? ? UR ? Desipra negative ? Final [facility] L ab (Internal) : [address], [place] ? ? UR ? Sertral negative ? Final [facility] L ab (Internal) : [address], [place] ? ? UR ? Desmeth negative ? [facility] : [address], [place] ? ? UR ? Fluoxet negative ? Final [facility] L ab (Internal) : [address], [place] ? ? UR ? Norfluo negative ? Final [facility] L ab (Internal) : [address], [place] ? ? UR ? Clomipr negative ? Final [facility] L [facility] (Internal) : [address] ? ? UR ? Desmeth negative ? [facility] : [address] ? ? UR ? Doxepin negative ? Final [facility] (Internal) : [address], [place] ? ? UR ? Desmeth negative ? Final [facility] : [address], [place] ? ? UR ? Maproti negative ? Final [facility] L ab (Internal) : [address], [place] ? ? UR ? Protrip negative ? Final [facility] L ab (Internal) : [address], [place] ? ? UR ? Trimipr negative ? Final [facility] L ab (Internal) : [address], [place] ? ? UR ? Paroxet negative ? Final [facility] L ab (Internal) : [address], [place] ? ? UR ? Cyclobe ++positive ? Final Nort h nzaprine ++ [facility] L ab (Internal) : [address], [place] 02/15/2020 Send Out, MISC ? S/O covid sent ? Final [facility] Hospital L ab (Internal) : [address] ? ? MISC ? Status sent to ? Final [facility] L [facility] (Internal) : [address] [facility] 01/21/2020 Creatinine, S ? Crea 1.00 mg/dL 0.52-1.04 F inal [place] Serum or mg/dL [facility] L ab (Internal) : [address] [facility] 01/12/2020 Pathology TISS ? Report (see ? Corrected [place] Study below) [facility] L ab (Internal) : [address] [facility] 01/04/2020 Platelets, BLD ? Plt 223 130-450 Final N orth Auto, Blood 10*3/uL 10*3/uL [facility] L ab (Internal) : [address] [facility] 01/04/2020 Prothrombin BLD ? Pt 9.9 S 9.1-11.7 Final [facility] L ab (Internal) : [address] ? ? BLD ? Inr 1.0 ? Final [facility] L ab (Internal) : [address] [facility] 01/04/2020 Partial BLD ? PTT 26 s 22-35 s Final Nort h Thromboplasti (Ip) [facility] L ab (Internal) : [address] [place] 12/10/2018 TSH, Serum or S - Tsh 1.12 0.47-4.68 Fin [facility] Plasma u[IU]/mL u[IU]/mL [facility] L ab (Internal) : [address] [facility] 12/10/2018 T4, Free, S - Ft4 0.93 NG/dL 0.78-2.19 Fin [facility] Serum NG/dL [facility] L ab (Internal) : [address] [facility] 12/10/2018 Ferritin, S - Ferr 45 NG/mL 11-264 Final orth Serum or NG/mL [facility] L ab (Internal) : [address] t 06/12/2018 CMP, Serum or S High g/r 124 mg/dL 74-106 Fin [facility] Plasma mg/dL [facility] L ab (Internal) : [address] t ? ? S - Bun 15 mg/dL 7-17 Final [facility] mg/dL [facility] (Internal[facility] : [address] ? ? S - Crea 0.80 mg/dL 0.52-1.04 Final Nor th mg/dL [facility] (Internal) : [address] t ? ? S - Ca 9.3 mg/dL 8.4-10.2 Final [facility] mg/dL [facility] (Internal) : [address] t ? ? S - Na 138 mmol/L 137-145 Final [facility] mmol/L [facility] (Internal) : [address] t ? ? S - K 3.9 mmol/L 3.5-5.1 Final [facility] mmol/L [facility] (Internal) : [address] t ? ? S - Cl 102 mmol/L 98-107 Final [facility] mmol/L [facility] (Internal) : [address] ? ? S - Tco2 26.0 22.0-30.0 Final [facility] mmol/L mmol/L [facility] (Internal) : [address] ? ? S - Tp 7.4 g/dL 6.3-8.2 Final [facility] g/dL [facility] (Internal[facility] : [address] t ? ? S - Alb 4.2 g/dL 3.5-5.0 Final [facility] g/dL [facility] (Internal[facility] : [address] ? ? S - Tbil 0.9 mg/dL 0.2-1.3 Final [facility] mg/dL [facility] ([facility] : [address] ? ? S - Alp 87 U/L 50-136 Final [facility] U/L [facility] ([facility]) : [address] ? ? S High Alt 68 U/L 9-52 U/L Final [facility] (Sgpt) [facility] (Internal) : [address] t ? ? S High Ast 45 U/L 14-36 U/L Final [place] (Sgot) [facility] Hospital L ab (Internal) : [address] t 06/12/2018 Folate, Serum S - Folate >17.00 2.76-20.0 Fi nal [place] NG/mL 0 NG/mL [facility] Hospital L ab (Internal) : [address] 06/12/2018 Vitamin B12, S - Vit B12 895.0 239.0-931 Fi nal [place] Serum pg/mL .0 pg/mL [facility] : [address] 03/19/2018 CBC W/ Auto BLD Low Wbc 3.8 5.0-10.0 Final [place] Diff 10*3/uL 10*3/uL [facility] Hospital L ab (Internal) : [address], Barbara petersen ? ? BLD - Rbc 4.29 4.10-5.30 Final [place] 10*6/uL 10*6/uL [facility] Hospital L ab (Internal) : [address] ? ? BLD - Hgb 13.7 g/dL 12.0-16.0 Final Nort h g/dL [facility] Hospital L ab (Internal) : [address] [place] ? ? BLD - Hct 41.3 % 37.0-47.0 Final [facility] Hospital L ab (Internal) : [address] [place] ? ? BLD High Mcv 96.3 fL 80.0-96.0 Final [facility] Hospital L ab (Internal) : [address], [place] peters[place] ? ? BLD - Mch 31.9 pg 26.0-32.0 Final [place] pg [facility] Hospital L ab (Internal) : [address] [place] ? ? BLD - Mchc 33.2 g/dL 31.0-35.0 Final Nort h g/dL [facility] Hospital L ab (Internal) : [address] ? ? BLD - Rdw 12.1 % 11.5-14.5 Final [facility] Hospital L ab (Internal) : [address] ? ? BLD - Plt 208 130-450 Final [place] 10*3/uL 10*3/uL [facility] Hospital L ab (Internal) : [address] [place] ? ? BLD - Anc 2.16 ? Final [place] 10*3/uL [facility] Hospital L ab (Internal) : [address] ? ? BLD - Neutro 57.4 % 40.0-75.0 Final [place] % [facility] L ab (Internal) : [address] ? ? BLD - Lymph 31.4 % 20.0-50.0 Final [place] % [facility] Hospital L ab (Internal) : [address] ? ? BLD - Calvert 7.7 % 2.0-10.0 Final [place] % [facility] L ab (Internal) : [address] ? ? BLD - Eos 3.2 % 1.0-6.0 % Final [facility] (Internal) : [address] ? ? BLD - Baso 0.3 % 0.0-1.0 % Final [facility] (Internal) : [address], [place] t ? ? BLD - Ig 0.0 % 0.0-0.9 % Final [facility] ([facility]) : [address] t 03/19/2018 Hepatic S - Tbil 1.1 mg/dL 0.2-1.3 Final N orth Function mg/dL [facility] Panel, Serum Hosp ital Lab (Internal) : [address] ? ? S High Dbil 0.5 mg/dL 0.0-0.3 Final [place] mg/dL [facility] Hospital L ab (Internal) : [address] ? ? S - Alp 72 U/L 50-136 Final [place] U/L [facility] Hospital L ab (Internal) : [address] ? ? S High Alt 100 U/L 9-52 U/L Final [place] (Sgpt) [facility] L ab (Internal) : [address] ? ? S High Ast 76 U/L 14-36 U/L Final [place] (Sgot) [facility] Hospital L ab (Internal) : [address] ? ? S High Ggt 59 U/L 12-43 U/L [facility] ([facility]) : [address] ? ? S - Tp 7.6 g/dL 6.3-8.2 Final [place] g/dL [facility] Hospital L ab (Internal) : [address], [place] ? ? S - Alb 4.5 g/dL 3.5-5.0 Final [place] g/dL [facility] L ab (Internal) : [address] 03/19/2018 Hepatitis S - Hepatit negative negative Kori l [facility] is a IgM Country (A+B+C), Ab, S Hospital Lab Acute, Serum (Int ernal): [address] ? ? S - Hbs negative negative Final [place] Antigen, [facility] L ab (Internal) : [address] ? ? S - Hbc IgM negative negative Final Nort h Ab, [facility] L ab (Internal) : [address] ? ? S - HCV Ab, negative negative Final Nort h S [facility] L ab (Internal) : [address] 02/27/2018 CBC W/ Auto BLD Low Wbc 3.8 5.0-10.0 Final [place] Diff 10*3/uL 10*3/uL [facility] L ab (Internal) : [address] ? ? BLD Low Rbc 3.92 4.10-5.30 Final [place] 10*6/uL 10*6/uL [facility] L ab (Internal) : [address] ? ? BLD - Hgb 12.7 g/dL 12.0-16.[facility] L [facility] (Internal) : [address] ? ? BLD - Hct 37.8 % 37.0-47.[address] [facility] L ab (Internal) : [address] ? ? BLD High Mcv 96.4 fL 80.0-96.0 Final [facility] L ab (Internal) : [address] ? ? BLD High Mch 32.4 pg 26.0-32.0 Final [place] pg [facility] L ab (Internal) : [address] ? ? BLD - Mchc 33.6 g/dL 31.0-35.0 Final Nort h g/dL [facility] L ab (Internal) : [address] ? ? BLD - Rdw 12.2 % 11.5-14.5 Final [facility] Hospital L ab (Internal) : [address] ? ? BLD - Plt 198 130-450 Final [place] 10*3/uL 10*3/uL [facility] Hospital L ab (Internal) : [address] [place] t ? ? BLD - Anc 2.09 ? Final [place] 10*3/uL [facility] Hospital L ab (Internal) : [address] ? ? BLD - Neutro 55.7 % 40.0-75.0 Final [facility] Hospital L ab (Internal) : [address], [place] t ? ? BLD - Lymph 32.0 % 20.0-50.0 Final [facility] Hospital L ab (Internal) : [address] ? ? BLD - Calvert 8.3 % 2.0-10.[address] [facility] L ab (Internal) : [address] ? ? BLD - Eos 3.5 % 1.0-6.0 % Final [facility] (Internal) : [address], [place] t ? ? BLD - Baso 0.5 % 0.0-1.0 % Final [facility] (Internal) : [address] ? ? BLD - Ig 0.0 % 0.0-0.9 % Final [facility] (Internal) : [address] t 02/27/2018 CMP, Serum or S High g/r 107 mg/dL 74-106 Fin al [place] Plasma mg/dL [facility] Hospital L ab (Internal) : [address] ? ? S - Bun 14 mg/dL 7-17 Final [place] mg/dL [facility] L ab (Internal) : [address] ? ? S - Crea 1.00 mg/dL 0.52-1.04 Final Nor th mg/dL [facility] Hospital L ab (Internal) : [address] ? ? S - Ca 9.9 mg/dL 8.4-10.2 Final [place] mg/dL [facility] L ab (Internal) : [address] ? ? S - Na 142 mmol/L 137-145 Final [place] mmol/L [facility] L ab (Internal) : [address] ? ? S - K 4.1 mmol/L 3.5-5.1 Final [place] mmol/L [facility] L ab (Internal) : [address] ? ? S - Cl 104 mmol/L 98-107 Final [place] mmol/L [facility] L ab (Internal) : [address] ? ? S - Tco2 26.0 22.0-30.0 Final [place] mmol/L mmol/L [facility] Hospital L ab (Internal) : [address] ? ? S - Tp 7.2 g/dL 6.3-8.2 Final [place] g/dL [facility] Hospital L ab (Internal) : [address] ? ? S - Alb 4.2 g/dL 3.5-5.0 Final [place] g/dL [facility] Hospital L ab (Internal) : [address] ? ? S - Tbil 1.0 mg/dL 0.2-1.3 Final [place] mg/dL [facility] Hospital L ab (Internal) : [address], [place] t ? ? S - Alp 67 U/L 50-136 Final [place] U/L [facility] L ab (Internal) : [address] ? ? S High Alt 119 U/L 9-52 U/L Final [place] (Sgpt) [facility] Hospital L ab (Internal) : [address] ? ? S High Ast 82 U/L 14-36 U/L Final [place] (Sgot) [facility] Hospital L ab (Internal) : [address] 02/27/2018 T4, Free, S - Ft4 1.08 NG/dL 0.78-2.19 Fin [facility] Serum NG/dL [facility] Hospital L ab (Internal) : [address] 02/27/2018 ESR BLD - Esr 10 mm/h 0-30 mm/h Final No rth (Erythrocyte Coun try [facility] Lab Rate), Blood (Int ernal): [address] [facility] 02/27/2018 TSH, Serum or S - Tsh 0.57 0.47-4.68 Fin [facility] Plasma u[IU]/mL u[IU]/mL [facility] Hospital L ab (Internal) : [address] 02/27/2018 Vitamin B12, S - Vit B12 242.0 239.0-931 Fi nal [place] Serum pg/mL .0 pg/mL [facility] : [address] 02/27/2018 Folate, Serum S - Folate 7.54 NG/mL 2.76-20. 0 Final [place] 0 NG/mL [facility] ([facility]) : [address] 03/13/2017 TSH, Serum or S ? Tsh 1.09 0.47-4.68 Fin al [place] Plasma u[IU]/mL u[IU]/mL [facility] Hospital L ab (Internal) : [address] t 03/13/2017 CMP, Serum or S ? g/r 89 mg/dL 74-106 Kori l [place] Plasma mg/dL [facility] Hospital L ab (Internal) : [address] ? ? S High Bun 18 mg/dL 7-17 Final [facility] mg/dL [facility] : [address] ? ? S ? Crea 0.90 mg/dL 0.52-1.04 Final [facility] mg/dL [facility] : [address] ? ? S ? Ca 9.6 mg/dL 8.4-10.2 Final [place] mg/dL [facility] : [address] ? ? S ? Na 139 mmol/L 137-145 Final [place] mmol/L [facility] : [address] ? ? S ? K 4.4 mmol/L 3.5-5.1 Final [facility] mmol/L [facility] : [address] t ? ? S ? Cl 105 mmol/L 98-107 Final [place] mmol/L [facility] : [address] ? ? S ? Tco2 26.0 22.0-30.0 Final [place] mmol/L mmol/L [facility] ([facility]) : [address] ? ? S ? Tp 7.3 g/dL 6.3-8.2 Final [place] g/dL [facility] Hospital L ab (Internal) : [address] ? ? S ? Alb 4.3 g/dL 3.5-5.0 Final [place] g/dL [facility] Hospital L ab (Internal) : [address] ? ? S ? Tbil 0.9 mg/dL 0.2-1.3 Final [place] mg/dL [facility] L ab (Internal) : [address] ? ? S ? Alp 76 U/L 50-136 Final [place] U/L [facility] Hospital L ab (Internal) : [address] ? ? S High Alt 69 U/L 9-52 U/L Final [place] (Sgpt) [facility] L ab (Internal) : [address] ? ? S ? Ast 36 U/L 14-36 U/L Final [place] (Sgot) [facility] L ab (Internal) : [address] t 03/13/2017 CBC W/ Auto BLD Low Wbc 4.1 5.0-10.0 Final [place] Diff 10*3/uL 10*3/uL [facility] : [address] t ? ? BLD ? Rbc 4.37 4.10-5.30 Final [place] 10*6/uL 10*6/uL [facility] L ab (Internal) : [address] ? ? BLD ? Hgb 14.0 g/dL 12.0-16.0 Final Nort h g/dL [facility] L ab (Internal) : [address] ? ? BLD ? Hct 41.6 % 37.0-47.0 Final [place] % [facility] L ab (Internal) : [address] ? ? BLD ? Mcv 95.2 fL 80.0-96.0 Final [place] fL [facility] L ab (Internal) : [address] ? ? BLD ? Mch 32.0 pg 26.0-32.0 Final [place] pg [facility] L ab (Internal) : [address] ? ? BLD ? Mchc 33.7 g/dL 31.0-35.0 Final Nort [facility] g/dL [facility] : [address] ? ? BLD ? Rdw 11.8 % 11.5-14.[address] [facility] L ab (Internal) : [address] ? ? BLD ? Plt 222 130-450 Final [place] 10*3/uL 10*3/uL [facility] L ab (Internal) : [address] ? ? BLD ? Anc 2.34 ? Final [place] 10*3/uL [facility] L ab (Internal) : [address] ? ? BLD ? Neutro 57.1 % 40.0-75.[address] [facility] L ab (Internal) : [address] ? ? BLD ? Lymph 33.2 % 20.0-50.[address] [facility] L ab (Internal) : [address] ? ? BLD ? Calvert 6.1 % 2.0-10.[address] [facility] L ab (Internal) : [address] ? ? BLD ? Eos 2.7 % 1.0-6.0 % Final [facility] L ab (Internal) : [address] ? ? BLD ? Baso 0.7 % 0.0-1.0 % Final [facility] L ab (Internal) : [address] ? ? BLD ? Ig 0.2 % 0.0-0.9 % Final [facility] L ab (Internal) : [address] t 03/13/2017 T4, Free, S ? Ft4 1.20 NG/dL 0.78-2.19 Fin al [place] Serum NG/dL [facility] Hospital L ab (Internal) : [address] t 10/10/2016 Venipuncture BLD ? Venpn* ? ? Final [facility]Internal[facility] : [address] 10/10/2016 CMP, Serum or S ? g/r 89 mg/dL 74-106 Kori l [place] Plasma mg/dL [facility] Hospital L ab (Internal) : [address] ? ? S ? Bun 9 mg/dL 7-17 Final [facility] mg/dL [facility] : [address] ? ? S ? Crea 0.90 mg/dL 0.52-1.04 Final [facility] mg/dL [facility] : [address] ? ? S ? Ca 9.4 mg/dL 8.4-10.2 Final [facility] mg/dL [facility] : [address] ? ? S ? Na 139 mmol/L 137-145 Final [place] mmol/L [facility] L ab (Internal) : [address] ? ? S ? K 4.3 mmol/L 3.5-5.1 Final [facility] mmol/L [facility] ([facility] : [address] ? ? S ? Cl 104 mmol/L 98-107 Final [place] mmol/L [facility] L ab (Internal) : [address] ? ? S ? Tco2 28.0 22.0-30.0 Final [place] mmol/L mmol/L [facility] ([facility]) : [address] ? ? S ? Tp 7.3 g/dL 6.3-8.2 Final [facility] g/dL [facility] ([facility] : [address] ? ? S ? Alb 4.2 g/dL 3.5-5.0 Final [facility] g/dL [facility] ([facility]) : [address] ? ? S ? Tbil 0.9 mg/dL 0.2-1.3 Final [facility] mg/dL [facility] : [address] ? ? S ? Alp 82 U/L 50-136 Final [place] U/L [facility] L ab (Internal) : [address] ? ? S High Alt 78 U/L 9-52 U/L Final [place] (Sgpt) [facility] L ab (Internal) : [address] ? ? S High Ast 43 U/L 14-36 U/L Final [place] (Sgot) [facility] L ab (Internal) : [address] t 10/10/2016 CBC W/ Auto BLD ? Wbc 6.1 5.0-10.0 Final [place] Diff 10*3/uL 10*3/uL [facility] (Internal) : [address] ? ? BLD ? Rbc 4.35 4.10-5.30 Final [place] 10*6/uL 10*6/uL [facility] (Internal) : [address] ? ? BLD ? Hgb 14.0 g/dL 12.0-16.0 Final Nort [facility] g/dL [facility] (Internal) : [address] ? ? BLD ? Hct 41.2 % 37.0-47.0 Final North % [facility] Hospital L ab (Internal) : [address] ? ? BLD ? Mcv 94.7 fL 80.0-96.0 Final [facility] L ab (Internal) : [address] ? ? BLD High Mch 32.2 pg 26.0-32.0 Final [place] pg [facility] (Internal) : [address] ? ? BLD ? Mchc 34.0 g/dL 31.0-35.0 Final Nort [facility] g/dL [facility] (Internal) : [address] ? ? BLD ? Rdw 12.3 % 11.5-14.5 Final [facility] L ab (Internal) : [address] ? ? BLD ? Plt 197 130-450 Final [place] 10*3/uL 10*3/uL [facility] (Internal[facility] : [address] ? ? BLD ? Anc 3.77 ? Final [place] 10*3/uL [facility] Hospital L ab (Internal) : [address] ? ? BLD ? Neutro 61.4 % 40.0-75.0 Final [facility] L ab (Internal) : [address] ? ? BLD ? Lymph 21.8 % 20.0-50.0 Final [facility] L ab (Internal) : [address] ? ? BLD ? Calvert 7.3 % 2.0-10.0 Final [facility] L ab (Internal) : [address] ? ? BLD High Eos 8.6 % 1.0-6.0 % Final [facility] L ab (Internal) : [address] ? ? BLD ? Baso 0.7 % 0.0-1.0 % Final [facility] L ab (Internal) : [address] ? ? BLD ? Ig 0.2 % 0.0-0.9 % Final [facility] L ab (Internal) : [address] ? Urinalysis, ? Color Yellow ? ? P_nc Primary Dipstick, Care Reflex Micro [place] ns: [address], [place] ? ? ? Appeara Clear ? ? P_nc Meghan mónica nce Care [place] ns: [address], [place] ? ? ? Glucose Normal ? ? P_nc Meghan sales Care [place]: [address], [place] ? ? ? Bilirub Negative ? ? P_nc P rimary in Care [place]: [address], [place] ? ? ? Ketones Negative ? ? P_nc P rimary Care [place]: [address], [place] ? ? ? Specifi 1.025 ? ? P_nc Meghan mónica an Care [place] ns: [address], [place] ? ? ? Blood Negative ? ? P_nc Meghan sales Care [place]: [address], [place] ? ? ? Ph 5.0 ? ? P_nc Prima ry Care [place] ns: [address], [place] ? ? ? Protein Negative ? ? P_nc P rimary Care [place] ns: [address], [place] ? ? ? Urobili 0.2 ? ? P_nc Meghan mónica broussard Care [place]: [address], [place] ? ? ? Nitrite negative ? ? P_nc P rimary Care [place]: [address], [place] ? ? ? Leukocy Negative ? ? P_nc P rimary te Care Esterase [place] ns: [address], [place] ? Urinalysis, ? Color Dark ? ? P_nc Primary Dipstick, Yellow Care Reflex Micro [place] ns: [address], [place] ? ? ? Appeara Clear ? ? P_nc Meghan mónica nce Care [place]: [address], [place] ? ? ? Glucose Normal ? ? P_nc Meghan mónica Care [place]: [address], [place] ? ? ? Bilirub Small ? ? P_nc Meghan mónica in Care [place]: [address], [place] ? ? ? Ketones Trace ? ? P_nc Meghan mónica Care [place]: [address], [place] ? ? ? Specifi 1.030 ? ? P_nc Meghan mónica c Care [place] ns: [address], [place] ? ? ? Blood Negative ? ? P_nc Meghan mónica Care [place]: [address], [place] ? ? ? Ph 5.5 ? ? P_nc Prima ry Care [place]: [address], [place] ? ? ? Protein Trace ? ? P_nc Meghan mónica Care [place]: [address], [place] ? ? ? Urobili 0.2 ? ? P_nc Meghan mónica nogen Care [place]: [address], [place] ? ? ? Nitrite negative ? ? P_nc P rimary Care [place]: [address], [place] ? ? ? Leukocy Trace ? ? P_nc Meghan mónica te Care Esterase [place] ns: [address], [place] Past Encounters 02/17/2020 Malignant Neoplasm of Female Breast; Med ication Monitoring; Hyperlipidemia Screening; Hypothyroidism; Impaired Glucose Tolerance; Anemia; Panic Attack; Migraine; Lumbosacral Radiculopathy; Pain of Right Elbow Joint Nam Iglesias MD: [address] [place] [address], Ph. 01/18/2020 Malignant Tumor of Breast Dorene Dumont MD: [address] [place] [address], Ph. 01/15/2020 Malignant Neoplasm of Female Breast Yessy Whitaker CNM: [address] [place] [address], Ph. 01/01/2020 Mammographic Mass of Right Breast Yessy Whitaker, CNM: [address] [place] [address], Ph. 12/31/2019 Lump in Right Breast Yessy Whitaker, CNM: [address] [place] [address], Ph. 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 09/03/2019 Medication Monitoring; Lumbosacral Radic ulopathy Justina Truong PA-C: [address] [place] [address], Ph. 05/14/2019 Medication Monitoring; Cervical Radiculo surya; Lumbosacral Radiculopathy; Herpes Labialis Justina Truong PA-C: [address] [place] [address], Ph. 02/19/2019 Medication Monitoring; Lumbosacral Radic ulopathy RON PhamC: [address] [place] [address], Ph. 11/27/2018 Hypothyroidism; Medication Monitoring; U rinary Incontinence; Hypertensive Disorder; Lumbosacral Radiculopathy; History of Anemia Justina Truong PA-C: [address] [place] [address], Ph. 10/29/2018 Zachariah Recinos MD: [address] [facility], [address], [place] [address], Ph. 10/21/2018 Carpal Tunnel Syndrome; Cubital Tunnel S yndrome; Cervical Radiculopathy Gio Parks MD: [address] [place] [address], Ph. 10/06/2018 Numbness of Hand Zachariah Recinos MD: [address] [facility], [address], [place] [address], Ph. Social History Tobacco Smoking Status Former Smoker Notes: quit Vaccine List Vaccine Type Hep B, adult 06/30/1996 03/03/2015?0.5 mL influenza, injectable, quadrivalent 02/14/2016?0.5 mL 01/08/2018 12/23/2018 01/07/2020 influenza, live, intranasal 01/04/2009 influenza, seasonal, injectable 12/28/2011 influenza, seasonal, injectable, preserv ative free 01/10/2010?0.5 mL 12/25/2010?0.5 mL 12/25/2012?0.5 mL 12/29/2013?0.5 mL 01/02/2017?0.5 mL MMR Tdap 11/28/2010?0.5 mL varicella Plan of Care Reminders Provider Appointments None ? ? recorded. Lab None ? ? recorded. Referral None ? ? recorded. Procedures None ? ? recorded. Surgeries None ? ? recorded. Imaging None ? ? recorded. Vitals 02/17/2020 09:20AM Office [facility] 40 Height Weight BMI Blood Pressure 162.56 cm 80.85 kg 30.6 kg/m2 122/74 mm[Hg] 01/18/2020 01:30PM Office 15 Height 162.56 cm 12/31/2019 10:40AM Office 20 Height Weight BMI Blood Pressure 162.56 cm 82.1 kg 31.1 kg/m2 120/70 mm[Hg] 11/26/2019 03:40PM Follow Up 20 Height Weight BMI Blood Pressure 162.56 cm 81.7 kg 30.9 kg/m2 110/76 mm[Hg] 09/03/2019 03:40PM Opioid Management 20 Height Weight BMI Blood Pressure 162.56 cm 81.19 kg 30.7 kg/m2 140/80 mm[Hg] 05/14/2019 03:40PM Opioid Management 40 Height Weight BMI Blood Pressure 162.56 cm 81.19 kg 30.7 kg/m2 120/80 mm[Hg] 02/19/2019 04:20PM Opioid Management 20 Height Weight BMI Blood Pressure 162.56 cm 81.65 kg 30.9 kg/m2 130/80 mm[Hg] 11/27/2018 04:20PM Opioid Management 20 Height Blood Pressure 162.56 cm 140/90 mm[Hg] 10/06/2018 10:30AM Consult 30 Height Weight BMI Blood Pressure 162.56 cm 80.42 kg 30.4 kg/m2 162/92 mm[Hg] 09/04/2018 04:20PM Any 20 Height Weight BMI Blood Pressure 162.56 cm 80.74 kg 30.6 kg/m2 140/90 mm[Hg] 06/11/2018 04:20PM Opioid Management 20 Height Weight BMI Blood Pressure 162.56 cm 67.13 kg 25.4 kg/m2 140/90 mm[Hg] 03/18/2018 04:20PM Acute 20 Height Weight BMI Blood Pressure 162.56 cm 82.1 kg 31.1 kg/m2 140/80 mm[Hg] 02/26/2018 04:20PM Follow Up 20 Height Weight BMI Blood Pressure 162.56 cm 83.01 kg 31.4 kg/m2 100/94 mm[Hg] 11/27/2017 04:30PM Follow Up 30 Height Blood Pressure 162.56 cm 126/64 mm[Hg] 09/04/2017 04:30PM Follow Up 30 Height Blood Pressure 162.56 cm 120/80 mm[Hg] 06/12/2017 Blood Pressure 130/80 mm[Hg] 04/09/2017 Weight Blood Pressure 82.51 kg 138/76 mm[Hg] 03/13/2017 Height Weight Blood Pressure 162.56 cm 80.74 kg 130/90 mm[Hg] 02/20/2017 Weight Blood Pressure 82.19 kg 138/88 mm[Hg] 11/28/2016 Height Weight Blood Pressure 162.56 cm 81.19 kg 140/80 mm[Hg] 11/01/2016 Height Blood Pressure 162.56 cm 160/90 mm[Hg] 10/10/2016 Height Blood Pressure 162.56 cm 130/90 mm[Hg] 07/11/2016 Blood Pressure 145/90 mm[Hg] 06/13/2016 Height Weight Blood Pressure 162.56 cm 82.1 kg 140/80 mm[Hg] 04/18/2016 Height Blood Pressure 162.56 cm 130/90 mm[Hg] 03/21/2016 Height Weight Blood Pressure 162.56 cm 81.19 kg 130/90 mm[Hg] 03/07/2016 Height Weight Blood Pressure 162.56 cm 78.47 kg 120/80 mm[Hg] 12/21/2015 Height Weight Blood Pressure 162.56 cm 75.3 kg 140/90 mm[Hg] 09/22/2015 Height Weight Blood Pressure 162.56 cm 79.61 kg 120/80 mm[Hg] 06/24/2015 Height Blood Pressure 162.56 cm 150/100 mm[Hg] 03/29/2015 Blood Pressure 140/90 mm[Hg] 03/03/2015 Weight Blood Pressure 75.52 kg 138/95 mm[Hg] 01/19/2015 Weight Blood Pressure 74.39 kg 160/120 mm[Hg] 12/30/2014 Height Weight Blood Pressure 162.56 cm 74.84 kg 140/98 mm[Hg] 10/06/2014 Blood Pressure 132/78 mm[Hg] 09/17/2014 Weight Blood Pressure 72.85 kg 130/92 mm[Hg] 05/04/2014 Height Weight Blood Pressure 162.56 cm 68.04 kg 126/74 mm[Hg] 03/02/2014 Blood Pressure 150/84 mm[Hg] 01/26/2014 Height Weight Blood Pressure 162.56 cm 72.57 kg 156/92 mm[Hg] 11/19/2013 Height Weight 162.56 cm 75.75 kg 11/04/2013 Blood Pressure 160/88 mm[Hg] 10/13/2013 Blood Pressure 146/94 mm[Hg] 09/01/2013 Blood Pressure 154/88 mm[Hg] 08/12/2013 Height Weight Blood Pressure 162.56 cm 77.11 kg 144/92 mm[Hg] 07/28/2013 Blood Pressure 148/62 mm[Hg] 07/21/2013 Blood Pressure 144/92 mm[Hg] 07/07/2013 Blood Pressure 128/70 mm[Hg] 06/24/2013 Blood Pressure 132/76 mm[Hg] 06/10/2013 Blood Pressure 146/80 mm[Hg] 05/29/2013 Blood Pressure 160/96 mm[Hg] 05/22/2013 Blood Pressure 158/84 mm[Hg] 05/05/2013 Blood Pressure 124/78 mm[Hg] 04/28/2013 Blood Pressure 148/94 mm[Hg] 04/23/2013 Blood Pressure 154/98 mm[Hg] 04/21/2013 Blood Pressure 152/94 mm[Hg] 04/02/2013 Blood Pressure 184/78 mm[Hg] 01/09/2013 Blood Pressure 180/114 mm[Hg] 10/08/2012 Blood Pressure 146/90 mm[Hg] 08/19/2012 Height Weight Blood Pressure 162.56 cm 80.29 kg 144/80 mm[Hg] 06/13/2012 Height Weight Blood Pressure 162.56 cm 79.83 kg 154/100 mm[Hg] 05/14/2012 Blood Pressure 138/68 mm[Hg] 04/11/2012 Blood Pressure 134/62 mm[Hg] 10/18/2011 Blood Pressure 156/70 mm[Hg] 08/01/2011 Blood Pressure 134/74 mm[Hg] 05/29/2011 Blood Pressure 122/80 mm[Hg] 04/12/2011 Height Weight Blood Pressure 161.04 cm 79.83 kg 118/80 mm[Hg] 12/19/2010 Weight Blood Pressure 84.59 kg 134/82 mm[Hg] 11/28/2010 Height Blood Pressure 161.04 cm 130/88 mm[Hg] 09/29/2010 Blood Pressure 104/80 mm[Hg] 06/23/2010 Blood Pressure 114/76 mm[Hg] 06/06/2010 Weight Blood Pressure 83.91 kg 120/70 mm[Hg] 05/01/2010 Weight Blood Pressure 83.91 kg 142/70 mm[Hg] 04/24/2010 Weight Blood Pressure 84.37 kg 120/84 mm[Hg] 11/22/2009 Weight Blood Pressure 82.55 kg 120/76 mm[Hg] 09/22/2008 Height Weight Blood Pressure 161.04 cm 78.47 kg 124/80 mm[Hg] 11/15/2005 Height Weight Blood Pressure 162.56 cm 81.42 kg 114/64 mm[Hg]
--- OUTSIDE RECORDS SUMMARY | 2020-03-22 01:51 | XMS_ITS | Encounter Summary ---
:1970 Author Care Team Providers Name Role Phone Amy Hicks MD Primary Care Provider [phone] Gonzalo Dumont MD General Surgeon [phone] Reason for Visit new patient; chronic pain management Assessment and Plan 1. 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 Medication monitoring ? drug screen, urine ? Narcan 4 mg/actuation nasa l spray ? Benefits and Risks for Prakash atment with Opioids ? Informed Consent Opiate Pr escribing ? drug screen, urine 3. Hyperlipidemia screening ? lipid panel, serum ? CMP, serum or plasma 4. Hypothyroidism f/u labs ? TSH, serum or plasma ? T4, free, serum 5. Impaired glucose tolerance f/u labs ? HbA1c (hemoglobin A1c), bl ood 6. Anemia f/u labs ? CBC w/ auto diff 7. Panic attack having panic attacks with rece nt cancer diagnosis has used xanax in the past with relief reviewed risks and need to avoid daily u se ? alprazolam 0.5 mg tablet 8. Migraine uses toradol PRN ? ketorolac 10 mg tablet 9. Lumbosacral radiculopathy on chronic opiate therapy no changes for now reviewed that she will likely have a hig her tolerance and may need higher dose if she ends up having surgery for her breast cancer and following her lung biopsy coming up ? hydrocodone 10 mg-acetamin ophen 325 mg tablet ? hydrocodone 10 mg-acetamin ophen 325 mg tablet ? hydrocodone 10 mg-acetamin ophen 325 mg tablet 10. Pain of right elbow joint with pressure after an injury months ago exam normal today and tenderness is not reproduced but call anytime for plain films Discussion Note: None recorded. Plan of Care Reminders Provider Appointments Opioid Amy padilla, Management 20 05/11/2020 8:40AM Lab Drug Screen, [place] Urine 02/17/2020 Hospital Lab (Internal) ? Drug Screen, [place] Urine 02/17/2020 Hospital Lab (Internal) ? Lipid Panel, [place] Serum 02/17/2020 Hospital Lab (Internal) ? CMP, Serum or [place] Plasma 02/17/2020 Hospital Lab (Internal) ? TSH, Serum or [place] Plasma 02/17/2020 Hospital Lab (Internal) ? T4, Free, [place] Serum 02/17/2020 Hospital Lab (Internal) ? HbA1C [place] (Hemoglobin a1C), Blood 02/17/2020 Hospital Lab (Internal) ? CBC W/ Auto [place] Diff 02/17/2020 Hospital Lab (Internal) Referral None recorded. ? [...] BMI Blood Pressure 5 ft 4 in 178 lbs 4 oz 30.6 kg/m2 122/74 mm[Hg] Results Lab Results Date Name Specimen Result Interpretation Description Value Range Status Address ? 02/17/2020 Drug UR ? Thc negative neg (50 Final [place] Screen, NG/mL NG/mL) Hospital Lab Urine NG/mL (Internal) : [address] [place] ? ? UR ? Pcp negative neg (25 [facility] [place] NG/mL) Hospital L ab (Internal) : [address] [place] ? ? UR ? Mague negative neg (150 Final [place] NG/mL) Hospital L ab (Internal) : [address] [place] ? ? UR ? Met negative neg (500 Final [place] NG/mL) Hospital L ab (Internal) : [address] [place] ? ? UR ABNORMAL Opi positive neg (100 [facility] [place] NG/mL) Hospital L ab (Internal) : [address] [place] ? ? UR ? Amp negative neg (500 [facility] [place] NG/mL) Hospital L ab (Internal) : [address] [place] ? ? UR ? Bzo negative neg (150 [facility] [place] NG/mL) Hospital L ab (Internal) : [address] [place] ? ? UR ABNORMAL Tca positive neg (300 Final [place] NG/mL) [facility] L ab (Internal) : [address] ? ? UR ? Mtd negative neg (200 [facility] [place] NG/mL) Hospital L ab (Internal) : [address] ? ? UR ? Bar negative neg (200 Final [place] NG/mL) Hospital L ab (Internal) : [address] ? ? UR ? Oxy negative neg (100 Final [place] NG/mL) Hospital L ab (Internal) : [address] ? ? UR ? Ppx negative neg (300 Final [place] NG/mL) Hospital L ab (Internal) : [address] ? ? UR ? Bup negative neg (10 Final [place] [facility] [place] NG/mL) Hospital L ab (Internal) : [address] 02/17/2020 CBC W/ BLD Low Wbc 4.5 5.0-10.0 [facility] [place] Auto Diff 10*3/uL 10*3/uL Hospi mario Lab (Internal) : [address] [place] ? ? BLD Low Rbc 4.07 4.10-5.3 Final [place] [facility] 10*6/uL 0 Hospital Lab 10*6/uL (Internal ): [address] [place] ? ? BLD ? Hgb 13.2 g/dL 12.0-16. Final [place] 0 g/dL Hospital L ab (Internal) : [address] [place] ? ? BLD ? Hct 39.5 % 37.0-47. Final [facility] untry 0 % Hospital L ab (Internal) : [address] [place] ? ? BLD High Mcv 97.1 fL 80.0-96. Final [facility]untry 0 fL Hospital L ab (Internal) : [address] [place] ? ? BLD High Mch 32.4 pg 26.0-32. Final [facility] 0 pg Hospital L ab (Internal) : [address] [place] ? ? BLD ? Mchc 33.4 g/dL 31.0-35. Final [place] 0 g/dL Hospital L ab (Internal) : [address] [place] ? ? BLD ? Rdw 12.0 % 11.5-14. Final [facility] untry 5 % Hospital L ab (Internal) : [address] [place] ? ? BLD ? Plt 209 130-450 Final [place] [facility] 10*3/uL 10*3/uL Hospital Lab (Internal) : [address] [place] ? ? BLD ? Anc 3.11 ? Final [place] [facility] 10*3/uL Hospital Lab (Internal) : [address] [place] ? ? BLD ? Nlr 3.08 0.00-3.2 Final [facility] untry 0 Hospital L ab (Internal) : [address] [place] ? ? BLD ? Neutro 68.6 % 40.0-75. Final [place] 0 % Hospital L ab (Internal) : [address] ? ? BLD ? Lymph 22.2 % 20.0-50. Final [place] [facility] 0 % Hospital L ab (Internal) : [address] ? ? BLD ? [place] 6.6 % 2.0-10.0 Final [place] [facility] % Hospital L ab (Internal) : [address] ? ? BLD ? Eos 2.0 % 1.0-6.0 Final [place] [facility] % Hospital L ab (Internal) : [address] ? ? BLD ? Baso 0.4 % 0.0-1.0 Final [place] [facility] % Hospital L ab (Internal) : [address] ? ? BLD ? Ig 0.2 % 0.0-0.[address] [facility] ntry % Hospital L ab (Internal) : [address] 02/17/2020 CMP, S ? g/r 97 mg/dL 74-106 Final [place] Serum or mg/dL Hospital Lab Plasma (Internal) : [address] ? ? S ? Bun 16 mg/dL 7-17 Final [facility] untry mg/dL Hospital L ab (Internal) : [address] ? ? S ? Crea 1.00 mg/dL 0.52-1.0 Final [place] 4 mg/dL Hospital Lab (Internal) : [address] ? ? S High Ca 10.4 mg/dL 8.4-10.2 Final [place] mg/dL Hospital L ab (Internal) : [address] ? ? S ? Na 139 mmol/L 137-145 Final [place] mmol/L Hospital L ab (Internal) : [address] ? ? S ? K 4.4 mmol/L 3.5-5.1 Final [place] mmol/L Hospital L ab (Internal) : [address] ? ? S ? Cl 102 mmol/L 98-107 Final [place] mmol/L Hospital L ab (Internal) : [address] ? ? S ? Tco2 28.0 22.0-30. Final [facility] untry mmol/L 0 mmol/L Hospital Lab (Internal) : [address] ? ? S ? Tp 7.9 g/dL 6.3-8.2 Final [facility]ry g/dL Hospital L ab (Internal) : [address] ? ? S ? Alb 4.8 g/dL 3.5-5.0 Final [facility] g/dL Hospital L ab (Internal) : [address] ? ? S ? Tbil 0.7 mg/dL 0.2-1.3 Final [place] mg/dL Hospital L ab (Internal) : [address] ? ? S ? Alp 83 U/L 50-136 Final [place] [facility] U/L Hospital L ab (Internal) : [address] ? ? S ? Alt 28 U/L 9-52 U/L Final [facility] untry (Sgpt) Hospital L ab (Internal) : [address] ? ? S ? Ast 28 U/L 14-36 Final [place] [facility] (Sgot) U/L Hospital L ab (Internal) : [address] 02/17/2020 T4, Free, S ? Ft4 1.10 NG/dL 0.78-2.[address] [facility] Serum 9 NG/dL Hospital Lab (Internal) : [address] 02/17/2020 Lipid S High Chol 249 mg/dL 50-200 Final [facility] Panel, mg/dL Hospital L ab Serum (Internal) : [address] ? ? S High Trig 217 mg/dL 10-150 Final [facility] ountry mg/dL Hospital L ab (Internal) : [address] ? ? S Low Hdl 36 mg/dL 40-60 Final [facility] untry mg/dL Hospital L ab (Internal) : [address] ? ? S High Ldl 170 mg/dL 0-130 Final [facility]ry mg/dL Hospital L ab (Internal) : [address] 02/17/2020 TSH, S High Tsh 4.81 0.47-4.6 Final [place] Serum or u[IU]/mL 8 Hospit al Lab Plasma u[IU]/mL (Interna l): [address] 02/17/2020 HbA1C BLD ? Ha1C 5.1 % 4.0-6.0 Final [place] (Hemoglob % Hospita l Lab in a1C), (Interna l): Blood [address] Allergies Code Code System Name Reaction Severity Onset 66614 RxNorm Azithromycin Nausea ? ? 8640 RxNorm [...] 02/18/2020 [place]acoscopy Information not avai [place]able [place] [facility] [place] Upper Gastrointestinal Endoscopy, W/ [...] Dilation and Curettage Information not a vailable 01/18/2020 CT, Chest + Abdomen + Pelvis, W/ [facility] (I maging/Xray) [place] [address] (Work Place) 01/22/2020 NM, Bone Scan [facility] (Imaging/Xray) [place] [address] (Work Place) 01/22/2020 CT, Chest + Abdomen + Pelvis, W/ [facility] (I maging/Xray) [place] [address] (Work Place) Vaccine List Vaccine Type Hep B, adult 06/30/1996 03/03/2015?0.5 mL influenza, injectable, quadrivalent 02/14/2016?0.5 mL 01/08/2018 12/23/2018 01/07/2020 influenza, live, intranasal 01/04/2009 influenza, seasonal, injectable 12/28/2011 influenza, seasonal, injectable, preserv ative free 01/10/2010?0.5 mL 12/25/2010?0.5 mL 12/25/2012?0.5 mL 12/29/2013?0.5 mL 01/02/2017?0.5 mL MMR Tdap 11/28/2010?0.5 mL varicella Social History Tobacco Smoking Status Former Smoker Notes: quit 20 Are you currently employed? Y Use IV [...] date of exposure to COVID19 patient? 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 Functional Status No Impairment. Past Encounters 02/17/2020 Malignant Neoplasm of Female Breast; Med ication Monitoring; Hyperlipidemia Screening; Hypothyroidism; Impaired Glucose Tolerance; Anemia; Panic Attack; Migraine; Lumbosacral Radiculopathy; Pain of Right Elbow Joint Amy Hicks MD: [address] [place] [address], Ph. 01/18/2020 Malignant Tumor of Breast Gonzalo Dumont MD: [address] [place] [address], Ph. History of Present Illness ? Lower Back_ Reported By: Patient HPI: Location: bilateral, posteri or. Quality: dull, frequent, constant, improving; radiates down leg /butt. Duration: 7 years. Timing: chronic. Context: fall. Alleviating F actors: lying down, rest, narcotics. Aggravating Factors: sitting , going from sit to stand, morning, cold weather, damp weather; impro ves with walking. Associated Symptoms: no weakness, no numbness, no ti ngling, no swelling, no redness, no warmth, no ecchymosis, no catching/l ocking, no popping/clicking, no buckling, no grinding, no instability, no drainage, no fever, no chills, no weight loss, no change in bowel/betzaida dder habits, radiation down leg. Prior Imaging: MRI. Previous Injec tions: did not help. Previous PT: did not help. Work Related: no. Work ing: regular duty Notes: <p></p> ? Chronic Pain Follow-up_ Reported By: Patient HPI: Analgesia: taking pain medic ation. Pain Severity: average pain: 4/10, worst pain: 10/10, differenc e in pain level: yes. ADL Improvements: physically functioning, able to maintain relationships, sleep patterns undisturbed, overall functio n improved, mood affected. Adverse Reactions: no nausea, no vom iting, no constipation, no itching, no mental cloudiness, no sweati ng, no fatigue, no drowsiness, no sexual dysfunction Notes: <p></p> Note: <p>Patient is here for a transfer of care appointment. She is transfering from [facility]. New diagnosis of Right Malignant neoplasm of right breast. Also here for f/u of multiple other chronic conditions including anxiety, hypothyroidism, anemia, impaired glucose tolerance, migraines, LS radiculopathy.</p><div><div><div><div><div>& lt;div><div&g t;<div><div>
</div></div></div></div&g t;</div><div><div>- some depression and anxiety with new diagnosis, but feels like its not abnormal</ div><div>
</div></div></div></div>< /div></div>& lt;p>
</p><table><tbody><tr><th>Date&l t;/th><th>Me d
Calc</th><th>
</th><th>VPMS<br&gt ;Check</th>< th>
</th><th>Conc.
Benzos</th><th>& lt;br></th>& lt;th>Naloxone</th><th>
</th><th>Date Agree
Signed</t h><th>
</th><th>Last
UDT</th><th >
</th><th>Func Assess
Tool</th><th>
</th><th>ORT<b r& gt;Score</th><th>
</th><th>COMM
Score& lt;/th></tr> <tr><td>{{DATE 11/26/2019}}</td><td>21.43</td>< td>
</ td><td>11/25/19</td><td>
</td><td>yes&l t;/td><td>&l t;br></td><td>11/26/19</td><td>
</td>&l t;td>11/27/18</t d><td>
</td><td>
</td><td>&lt ;br></td>&lt ;td>5/60</td><td>
</td><td>
</td ><td><br& gt;</td><td>
</td><td>
</td>< /tr><tr>< td>{{DATE 11/27/2018}}</td><td>21.43</td><td><br&g t;</td><td&g t;11/27/18</td><td>
</td><td>yes</td><t d>
</t d><td>
</td><td>
</td><td>10/31 12/18</td><td >
</td><td>
</td><td>
< /td><td>< br></td><td>
</td><td>
</td>& lt;td>
&l t;/td><td>
</td><td>
</td></tr&g t;<tr><td&gt ;{{DATE 02/19/2019}}</td><td>21.43</td><td>
&lt ;/td><td></td><td>
</td><td>yes</td><td&gt ;
</td&gt ;<td>
</td><td>
</td><td>11/27/18 </td><td>
</td><td>
</td><td>
</td& gt;<td><br&g t;</td><td>
</td><td>
</td><t d>
</t d><td>
</td><td>
</td></tr>&l t;tr><td>{{D ATE 05/14/2019}}</td><td>21.43</td><td>
</td ><td>05/14/19 </td><td>
</td><td>yes</td><td>< br></td>< td>
</td><td>
</td><td>11/27/18</ td><td><b r></td><td>
</td><td>
</td>&l t;td>
&lt ;/td><td>
</td><td>
</td><td>
</td> <td>
</td><td>
</td></tr><tr& gt;<td>{{DATE 0 09/03/2019}}</td><td>21.43</td><td>
</td>& lt;td>6/4/20</t d><td>
</td><td>yes</td><td>
</td><td>
</td><td>
</td><td>8/29/19</td> <td>
& lt;/td><td>9/22/16</td><td>
</td><td>5 /60</td><td& gt;
</td><td>
</td><td>
</ td><td><b r></td><td><table></table></td></tr></ tbody></table&g t;<p>
</p><p>
</p><table><tbo dy><tr><t d>
</td></tr></tbody></table><table>&l t;tbody><tr> <th>Date</th><th>Med
Calc</th><th><br& gt;</th><th& gt;VPMS
Check</th><th>
</th><th>Conc.& lt;br>Benzos</t h><th>
</th><th>Naloxone</th><th><b r></th><th>Date Agree
Signed</th><th>
</th><th>Last&lt ;br>UDT</th><th>
</th><th>Func Assess
Tool</th><th>< br></th><th>ORT
Score</th><th>
< /th><th>COMM
Score</th></tr><tr><td>{{DATE 02/17/2020}}< /td><td>< br></td><td>
</td><td>
</td>& lt;td>
&l t;/td><td>yes</td><td>
</td><td>
</td><td >
</td><td>20</td><td>
</t d><td></td><td>
</td><td><p>15/60</p>&l t;p>
< /p></td><td>
</td><td>
</td>& lt;td>
&l t;/td><td>
</td><td>
</td></tr&g t;<tr><td&gt ;{{DATE}}</td><td>
</td><td>
</td&g t;<td><br&gt ;</td><td>
</td><td>
</td><td >
</td ><td>
</td><td>
</td><td>< br></td>< td>
</td><td>
</td><td>
&l t;/td><td>&l t;br></td><td>
</td><td>
</td&gt ;<td>
</td><td>
</td><td>
</td></tr ><tr><td& gt;{{DATE}}</td><td>
</td><td>
</td ><td><br& gt;</td><td>
</td><td>
</td>< td>
</ td><td>
</td><td>
</td><td>&l t;br></td>&l t;td>
</td><td>
</td><td>
</td><td>
</td><td>
</td><td>
</td& gt;<td><br&g t;</td><td>
</td><td>
</td></ tr><tr><t d>{{DATE}}</td><td>
</td><td>
</ td><td><b r></td><td>
</td><td>
</td>&l t;td>
&lt ;/td><td>
</td><td>
</td><td>
</td> <td>
</td><td>
</td><td><br&g t;</td><td&g t;
</td><td>
</td><td>
</t d><td>
</td><td>
</td><td>
</td>&lt ;/tr><tr>&lt ;td>{{DATE}}</td><td>
</td><td>
&lt ;/td><td>&lt ;br></td><td>
</td><td>
</td> <td>
& lt;/td><td>
</td><td>
</td><td&g t;
</td&g t;<td>
</td><td>
</td><td>
</td><td >
</td><td>
</td><td>
< /td><td>< br></td><td>
</td><td>
</td>& lt;/tr><tr>& lt;td>{{DATE}}</td><td>
</td><td>
& lt;/td><td>& lt;br></td><td>
</td><td>
</td&g t;<td><br&gt ;</td><td>
</td><td>
</td><td >
</td ><td>
</td><td>
</td><td>< br></td>< td>
</td><td>
</td><td>
&l t;/td><td>&l t;br></td><td>
</td><td>
</td&gt ;</tr><tr&gt ;<td>{{DATE}}</td><td>
</td><td><br&gt ;</td><td&gt ;
</td><td>
</td><td>
</td ><td><br& gt;</td><td>
</td><td>
</td>< td>
</ td><td>
</td><td>
</td><td>&l t;br></td>&l t;td>
</td><td>
</td><td>
</td><td>
</td><td>
</td><td>
</td& gt;</tr><tr& gt;<td>{{DATE}}</td><td>
</td><td><br& gt;</td><td& gt;
</td><td>
</td><td>
</ td><td><b r></td><td>
</td><td>
</td>&l t;td>
&lt ;/td><td>
</td><td>
</td><td>
</td> <td>
</td><td>
</td><td><br&g t;</td><td&g t;
</td><td>
</td><td><table>&lt ;/table></td></tr></tbody></table> Review of Systems ? Notes: <p>GEN: no signifiant weight loss, no fever</p><p>HEENT: no URI symptoms</p><p>BREAST: ri ght breast mass stable</p><p>PULM: no cough or SOB</p><p>MSK: chronic LS ba ck pain for which she has been on chronic opiate therapy from previous PCP; r ight elbow pain following an injury this year; only hurts to put pressure o n it such as when leaning on a table with her elbow
</p><p>PSYCH: incre asing panic attacks since diagnosis; , has difficult relationship with her kids; parents are supportive; supportive sabianist as well</p> Physical Exam ? Notes: <p>General: A&O, well groome d {{obese overweight morbidly obese normal weight thin}}.
HEAD: no rmocephalic & atraumatic.
EYES: non icteric.
NECK: supple.
LUNGS: CTA all marion. Good air movement.
CARDIO: RRR wit hout murmur, rub, or gallop.
NEURO: A&O. Normal gait.
PSYCH: Anxious mood , appropriate affect.
CUTANEOUS: no overt lesions or rashes.</p><p>MSK : right elbow: no deformities, nontender to palpation.</p>
== END 2020-03-31 23:59 | disposition home or self-care (01) ==
LOC: INF 01:42
PROVIDERS: PCP Family Medicine; Visit Provider Internal Medicine
DX: Z53.9 Procedure and treatment not carried out, unspecified reason (principal)

== ENCOUNTER 2020-08-18 18:17 | Emergency (ER) | payer OTHER, MEDICAID, SELFPAY ==
[2020-08-18 18:23] VITALS: BP 117/67; PULSE 128; RESP 16; TEMP 36.8; O2SAT 94
--- NOTE | 2020-08-18 18:30 | ED.GENADUL_ITS ---
Discharge Plan Disposition Patient Disposition: HOME Condition: Stable Discharge Details Clinical Impression: Diarrhea, Hypomagnesemia Primary Care Provider: Amy Hicks ED Provider: Anna Marques Home Meds and New Rx's Prescriptions: Continued levothyroxine [Synthroid] 112 MCG tablet 150 mcg PO DAILY RF: 0 duloxetine [Cymbalta] 30 MG capsule,delayed release(DR/EC) 30 mg PO DAILY RF: 0 hydrocodone-acetaminophen 1 EACH tablet 1 tab-cap PO Q6H PRN RF: 0 hydrocodone-acetaminophen [Vicodin] 1 EACH tablet 1 tab-cap PO Q4H PRN Qty: 12 RF: 0 cyclobenzaprine 10 MG tablet 10 mg PO TID PRNRF: 0 vitamin P26-eidfv acid 0.5-1 mg Tablet 1 tab PO DAILY RF: 0 enalapril maleate 5 mg Tablet 5 mg PO DAILY RF: 0 omeprazole 40 mg Capsule,Delayed Release(Dr/Ec) 40 mg PO DAILY RF: 0 cyanocobalamin (vitamin B-12) 1,000 mcg Tablet, Sublingual 1,000 mcg PO DAILY RF: 0 zolpidem 5 mg Tablet 5 mg PO .QHS RF: 0 metoprolol succinate 25 mg Tablet Extended Release 24 Hr 25 mg PO DAILY RF: 0 carbidopa-levodopa 25-100 mg Tablet 1 tab PO .QHS RF: 0 Viibryd 40 mg Tablet 40 mg PO DAILY RF: 0 Discharge Instructions Instructions: Acute Diarrhea (ED), Hypomagnesemia (ED) Additional Instructions: Today your magnesium level was low at 1.6. You were given 2 L normal saline while here. Stool culture is currently pending Follow up with primary care provider in 3-5 days. Return to ED sooner if any worsening or concerns. Increase oral fluids. Follow a brat diet and drink electrolyte replacement drinks such as Gatorade while having diarrhea. Return to ED for any worsening bleeding, more than 7 episodes of diarrhea a day, worsening pain, lightheadedness fever chills Referrals: Amy Hicks [Primary Care Provider] - Discharge Data Discharge Date/Time-TO BE ENTERED AT DEPARTURE: 08/18/20 22:05 Medical Decision Making 49-year-old female presents to the ER with chief complaint of watery diarrhea for the last 3 days. Patient is currently undergoing chemotherapy had a treatment on Saturday saw her primary care yesterday had a liter of fluid. Diarrhea has continued today reports nausea decreased appetite and intermittent crampy abdominal pain prior to having the diarrheal episodes. She is currently being treated for stage III breast cancer and alternates with chemotherapy and immunotherapy. She denies any fever chills or any other concerns. She is alert and oriented x4, she reports taking Zofran and Compazine prior to arrival she also takes lorazepam and hydrocodone. 2133: Patient reevaluation, has received 1 L normal saline discussed labs with patient and family they verbalized understanding. Discussed magnesium they request to speak with her primary doc and oncology doctor before having a supplementation. 1 L has infused I did order additional liter of saline due to heart rate being 114. Patient did have an episode of diarrhea while here and was sent sample to the lab. CBC shows white blood cell count 4.9 RBC 3.81 hemoglobin 12.1, hematocrit 37.2, sodium 138, potassium 4.0 creatinine 1.3 GFR is 43.18 magnesium is 1.6. Stool culture is pending at this Did discussed home care and strict return instructions, verbalized understanding. Discussed brat diet and drinking Gatorade or similar electrolyte supplements. Patient remained hemodynamically stable throughout stay. This text was generated using [email or web address] dictation system, please disregard any oddities of phrase or misspellings. HPI General Mode of arrival: wheelchair . Date/Time Provider Initiated Documentation: 08/18/20 18:18 . Limitations to Documentation: no limitations . Information obtained by: patient and family . HPI Narrative: 49-year-old female presents to the ER with chief complaint of watery diarrhea for the last 3 days. Patient is currently undergoing chemotherapy had a treatment on Saturday saw her primary care yesterday had a liter of fluid. Diarrhea has continued today reports nausea decreased appetite and intermittent crampy abdominal pain prior to having the diarrheal episodes. She is currently being treated for stage III breast cancer and alternates with chemotherapy and immunotherapy. She denies any fever chills or any other concerns. She is alert and oriented x4, she reports taking Zofran and Compazine prior to arrival she also takes lorazepam and hydrocodone. Related Data Home Medications Medication Instructions Recorded Confirmed duloxetine [Cymbalta] 30 mg PO DAILY 08/11/12 08/18/20 levothyroxine [Synthroid] 150 mcg PO DAILY tab-cap 08/11/12 08/18/20 hydrocodone-acetaminophen 1 tab-cap PO Q6H PRN tab-cap 09/09/12 08/18/20 cyclobenzaprine 10 mg PO TID PRN 09/10/12 08/18/20 hydrocodone-acetaminophen [Vicodin] 1 tab-cap PO Q4H PRN #12 tab-cap 09/10/12 08/18/20 Viibryd 40 mg PO DAILY 08/18/20 08/18/20 carbidopa-levodopa 1 tab PO .QHS 08/18/20 08/18/20 cyanocobalamin (vitamin B-12) 1,000 mcg PO DAILY 08/18/20 08/18/20 enalapril maleate 5 mg PO DAILY 08/18/20 08/18/20 metoprolol succinate 25 mg PO DAILY 08/18/20 08/18/20 omeprazole 40 mg PO DAILY 08/18/20 08/18/20 vitamin B20-pmxcs acid 1 tab PO DAILY 08/18/20 08/18/20 zolpidem 5 mg PO .QHS 08/18/20 08/18/20 Allergies Allergy/AdvReac Type Severity Reaction Status Date / Time erythromycin base Allergy Intermediate flushed Unverified 08/18/20 18:55 [Erythromycin Base] and sick to her stomach. General Stated Complaint: Abd Prob GUY: 3 Review of Systems Narrative: Constitutional: Negative for weight loss, alert and oriented, well groomed, normal body habitus, appears comfortable. Reports decreased appetite. HEENT: Denies trauma, headaches, blurry vision, nasal discharge, sore throat, trouble swallowing. Chest: Denies chest pain, palpitations, irregular rhythm, hypertension. Respiratory: Denies Shortness of breath, cough, hemoptysis. GI: Denies abdominal pain, vomiting, constipation. Positive diarrhea and nausea, no vomiting : Denies dysuria, hematuria, flank pain, rectal bleeding. Neuro: Denies dizziness, blurry vision, weakness, syncope, headache or facial numbness. Hematologic: Currently undergoing chemotherapy for breast cancer. PFSH Social History Smoking/Tobacco Use Status: Former Tobacco Use Smoking risk assessment performed?: Yes Alcohol Intake: never Drug use: Never Substance use type: does not use Exam Narrative Exam Narrative: Constitutional: Alert and oriented x3. Appears stated age. Normal body habitus. Head: Normocephalic, no trauma. Eyes: Pupils PERRLA, Red reflex noted, EOM's intact. Eyelids symmetrical without lesions, discharge, or swelling. ENT: Bilateral TM's WNL, External ear normal to inspection, no mastoid TTP, swelling, or erythema, Nasal turbinates WNL, no nasal discharge. Normal dentition, Posterior pharynx WNL, no exudate. Chest: RRR, Normal S1, S2, distal pulses intact. Resp: Lungs clear to auscultation bilaterally, no wheezes, rales, or rhonchi. Abdomen: Soft nontender distended nontender to palpation all 4 quadrants Musculoskeletal: Normal gait, 5/5 strength to all four extremities. Skin: No suspicious rashes or lesions. Capillary refill less than 2 sec. Neurologic: Cranial nerves II-XII intact. Alert and oriented x 3. DTR's intact. Hematologic/Lymphatic: No ecchymosis, no lymphadenopathy. Course Vital Signs Vital signs: Vital Signs Temperature 36.8 C 08/18/20 18:23 Pulse 128 H 08/18/20 18:23 Respiratory Rate 16 08/18/20 18:23 Blood Pressure 117/67 08/18/20 18:23 Pulse Oximetry 94 08/18/20 18:23 Temperature 36.8 C 08/18/20 18:23 Temperature Source Skin 08/18/20 18:23 Pulse 128 H 08/18/20 18:23 Respiratory Rate 16 08/18/20 18:23 Respiratory Effort Non-Labored 08/18/20 18:23 Blood Pressure 117/67 08/18/20 18:23 Blood Pressure Position Sitting 08/18/20 18:23 Pulse Oximetry 94 08/18/20 18:23 Oxygen Delivery Method Room Air 08/18/20 18:23 Oxygen Flow Rate 0 08/18/20 18:23 Pain Level 0 08/18/20 18:23
[2020-08-18] MEDS: Normal Saline 1,000 ML 1000 ML IV ×2 (19:50→21:36)
[2020-08-18] MEDS: Ondansetron 4 MG/2 ML VIAL IVP (19:51)
[2020-08-18 19:53] LABS: Abs Immature Grans 0.01 10^3/uL (0.0-0.06); HCT 37.2 % (36.0-46.0); HGB 12.1 g/dL (11.2-15.7); MCH 31.8 pg (27.0-33.0); MCHC 32.5 % (32.0-36.0); MCV 97.6 fL (80-95); MPV 11.8 fL (8.0-11.0); Platelet Count 179 10^3/uL (130-400); RBC 3.81 10^6/uL (3.93-5.22); RDW 12.7 % (11.7-14.6); RDW-SD 45.6 fL; WBC 4.89 10^3/uL (4.4-10.8)
[2020-08-18 20:07] LABS: Absolute Lymphocyte Count 0.93 10^3/uL (1.2-3.4); Absolute Neutrophil Count 3.67 10^3/uL (1.2-6.7); Bands % 8; Diff Comment Manual Differential; RBC Morphology Normal
[2020-08-18 20:11] LABS: ALT 24 U/L (14-59); AST 13 U/L (15-37); Albumin 3.4 g/dL (3.4-5.0); Alkaline Phosphatase 86 U/L (46-116); Anion Gap 8.1 mmol/L (3-11); BUN 16 mg/dL (7-18); Bilirubin, Total 0.9 mg/dL (0.2-1.0); CO2 26.9 mmol/L (21.0-32.0); CREATININE 1.3 mg/dL (0.55-1.02); Calcium 9.3 mg/dL (8.5-10.1); Chloride 103 mmol/L (98-107); Estimated GFR 43.18 (mL/min/1.73m2); Glucose 102 mg/dL (74-106); Magnesium 1.6 mg/dL (1.8-2.4); Sodium 138 mmol/L (136-145); Total Protein 6.9 g/dL (6.4-8.2)
[2020-08-20 00:15] LABS: Campylobacter PCR Negative (Negative); Salmonella PCR Negative (Negative); Shiga Toxin PCR Negative (Negative); Shigella/Enteroinvasive Ecoli Negative (Negative)
== END 2020-08-18 22:05 | disposition home or self-care (01) ==
PROVIDERS: Emergency Provider Registered Nurse Emergency; PCP Family Medicine
DX: R19.7 Diarrhea, unspecified (principal); E83.42 Hypomagnesemia; R00.2 Palpitations
CPT/HCPCS: 80053; 87505; 96361; 96374; 99284; 82270; 83735; 85025; 99283; J2405

== ENCOUNTER 2020-09-06 16:01 | Emergency (ER) | payer OTHER, MEDICAID, SELFPAY ==
[2020-09-06] VITALS (88 sets, daily range): BP systolic 100–131; BP diastolic 52–88; PULSE 85–116; RESP 0–24; TEMP 36.8; O2SAT 94–100
--- NOTE | 2020-09-06 16:00 | RT.EKG_ITS ---
APPROVED REPORT Exam: Resting ECG Reason for Exam: chest pain Patient Location: E HR:99 bpm ECG Measurements Heart Rate 99 AXIS DE 170 P 52 QRSd 67 QRS 16 QT 338 T 20 QTc 435 Conclusion Sinus rhythm...normal P axis, V-rate 60- 99 Phydician: Q waves in III and II. No stemi. no prior for comparison
[2020-09-06] MEDS: diphenhydrAMINE 50 MG/ML VIAL 25 MG IVP (16:34)
[2020-09-06] MEDS: Normal Saline 1,000 ML 1000 ML IV (16:38)
--- NOTE | 2020-09-06 16:45 | RT.EKG_ITS ---
APPROVED REPORT Exam: Resting ECG Reason for Exam: chest pain Patient Location: E HR:95 bpm ECG Measurements Heart Rate 95 AXIS OH 162 P 51 QRSd 68 QRS 11 QT 354 T 22 QTc 445 Conclusion Sinus rhythm...normal P axis, V-rate 60- 99 Physician: no stemi, inverted t wave in lead 3
--- NOTE | 2020-09-06 16:51 | ED.GENADUL_ITS ---
Discharge Plan Disposition Patient Disposition: HOME Condition: Good Discharge Details Clinical Impression: Allergic reaction, Breast cancer, Chest pain Primary Care Provider: Amy Hicks ED Provider: Leslie Olvera Home Meds and New Rx's Prescriptions: New epinephrine 0.3 mg/0.3 mL auto-injector 0.3 mg IM ONCE Qty: 1 RF: 0 No Action levothyroxine [Synthroid] 112 MCG tablet 150 mcg PO DAILY RF: 0 duloxetine [Cymbalta] 30 MG capsule,delayed release(DR/EC) 30 mg PO DAILY RF: 0 hydrocodone-acetaminophen 1 EACH tablet 1 tab-cap PO Q6H PRN RF: 0 hydrocodone-acetaminophen [Vicodin] 1 EACH tablet 1 tab-cap PO Q4H PRN Qty: 12 RF: 0 cyclobenzaprine 10 MG tablet 10 mg PO TID PRNRF: 0 vitamin S62-bzvrk acid 0.5-1 mg Tablet 1 tab PO DAILY RF: 0 enalapril maleate 5 mg Tablet 5 mg PO DAILY RF: 0 omeprazole 40 mg Capsule,Delayed Release(Dr/Ec) 40 mg PO DAILY RF: 0 cyanocobalamin (vitamin B-12) 1,000 mcg Tablet, Sublingual 1,000 mcg PO DAILY RF: 0 zolpidem 5 mg Tablet 5 mg PO .QHS RF: 0 metoprolol succinate 25 mg Tablet Extended Release 24 Hr 25 mg PO DAILY RF: 0 carbidopa-levodopa 25-100 mg Tablet 1 tab PO .QHS RF: 0 Viibryd 40 mg Tablet 40 mg PO DAILY RF: 0 Discharge Instructions Instructions: Chest Pain (ED), General Allergic Reaction (ED) Additional Instructions: Use EpiPen if you develop lip swelling, difficulty swallowing, shortness of breath Take Benadryl 25 to 50 mg every 4-6 hours Take prednisone 40 mg for the neck 4 days to prevent recurrence Talk with your oncologist about your possible reaction to your chemotherapy medication Return earlier should you have new or worsening complaints including difficulty swallowing, chest pain, or with any new or worsening complaints I suspect her chest pain is related to allergic reaction, I do recommend you follow-up with your doctor regarding this Discharge Data Discharge Date/Time-TO BE ENTERED AT DEPARTURE: 09/06/20 20:40 Medical Decision Making Patient appears well, her chest x-ray does not show acute pathology per radiology interpretation of my review, she does have a 2 - troponins and her EKG does not show any acute change Patient was observed to the emergency room for 4 hours without return of symptoms She will follow up with her primary care physician and oncologist She has been off prednisone for the next 3 days at home and she will continue to take Benadryl She is discharged home in stable condition with stable vitals not any signs or symptoms of anaphylaxis, she was supplied with an EpiPen for home and instructed on how to appropriately use it Differential Diagnosis Differential Diagnosis: Angina, allergic reaction, bronchitis, pleurisy Medical Records Medical records reviewed: Yes I reviewed the patient's medical records. Lab Data Lab results reviewed: Yes I reviewed the patient's lab results. HPI General Mode of arrival: ambulatory . Date/Time Provider Initiated Documentation: 09/06/20 16:14 . Limitations to Documentation: no limitations . Information obtained by: patient . HPI Narrative: This 49-year-old female presents for onset of rash, chest pain, and shortness of breath after receiving a new IV chemotherapy. This was at 3:00. The chemotherapy was discontinued and then she was given Pepcid, Benadryl, and Decadron with mild relief in symptoms. She states but the infusion was reinitiated and her symptoms returned almost immediately. She was subsequently sent to the emergency room for evaluation. In the emergency room she denies any chest pain but has had some mild shortness of breath. She denies any wheezing or difficulty swallowing. She also states she still has a rash. She denies prior history of reaction similar to this in the past. She denies any nausea or vomiting. She denies any additional complaints at this time. Related Data Home Medications Medication Instructions Recorded Confirmed duloxetine [Cymbalta] 30 mg PO DAILY 08/11/12 08/18/20 levothyroxine [Synthroid] 150 mcg PO DAILY tab-cap 08/11/12 08/18/20 hydrocodone-acetaminophen 1 tab-cap PO Q6H PRN tab-cap 09/09/12 08/18/20 cyclobenzaprine 10 mg PO TID PRN 09/10/12 08/18/20 hydrocodone-acetaminophen [Vicodin] 1 tab-cap PO Q4H PRN #12 tab-cap 09/10/12 08/18/20 Viibryd 40 mg PO DAILY 08/18/20 08/18/20 carbidopa-levodopa 1 tab PO .QHS 08/18/20 08/18/20 cyanocobalamin (vitamin B-12) 1,000 mcg PO DAILY 08/18/20 08/18/20 enalapril maleate 5 mg PO DAILY 08/18/20 08/18/20 metoprolol succinate 25 mg PO DAILY 08/18/20 08/18/20 omeprazole 40 mg PO DAILY 08/18/20 08/18/20 vitamin Y93-nyavw acid 1 tab PO DAILY 08/18/20 08/18/20 zolpidem 5 mg PO .QHS 08/18/20 08/18/20 epinephrine 0.3 mg IM ONCE #1 ea 09/06/20 Previous Rx's Medication Instructions Recorded epinephrine 0.3 mg IM ONCE #1 ea 09/06/20 Allergies Allergy/AdvReac Type Severity Reaction Status Date / Time erythromycin base Allergy Intermediate flushed Unverified 09/06/20 16:20 [Erythromycin Base] and sick to her stomach. General Stated Complaint: Allergic GUY: 2 Review of Systems Narrative: Review of systems obtained x7 aside from where indicated in HPI PFSH Social History Smoking/Tobacco Use Status: Former Tobacco Use Smoking risk assessment performed?: Yes Alcohol Intake: never Drug use: Never Substance use type: does not use Exam Const General: cooperative Orientation: alert and oriented x3 HENFL Other: Uvula midline, no drooling, no stridor Resp Effort & Inspection: normal respiratory effort Auscultation: clear to auscultation bilaterally Cardio Rate: regular rate Rhythm: regular rhythm GI Other: No abdominal tenderness to palpation Skin Other: Urticaria noted to face and upper thorax No perioral edema Neuro General: patient alert and patient oriented x3 Course Vital Signs Vital signs: Vital Signs Temperature 36.8 C 09/06/20 16:12 Pulse 104 H 09/06/20 16:12 Respiratory Rate 22 09/06/20 16:12 Blood Pressure 131/79 09/06/20 16:12 Pulse Oximetry 100 09/06/20 16:12 Temperature 36.8 C 09/06/20 16:12 Temperature Source Temporal Artery Scan 09/06/20 16:12 Pulse 98 H 09/06/20 16:46 Pulse 116 H 09/06/20 16:50 Respiratory Rate 15 09/06/20 16:50 Respiratory Effort Non-Labored 09/06/20 16:42 Respiratory Depth Normal 09/06/20 16:42 Respiratory Pattern Normal 09/06/20 16:42 Blood Pressure 106/88 09/06/20 16:46 Blood Pressure Mean 92 09/06/20 16:46 Blood Pressure Position Supine 09/06/20 16:12 Pulse Oximetry 99 09/06/20 16:50 Oxygen Delivery Method Room Air 09/06/20 16:12 Oxygen Flow Rate 0 09/06/20 16:12 Pain Level 10 09/06/20 16:42
[2020-09-06 16:56] LABS: Abs Immature Grans 0.33 10^3/uL (0.0-0.06); Absolute Basophil Count 0.03 10^3/uL (0.0-0.2); Absolute Eosinophil Count 0.04 10^3/uL (0.0-0.7); Absolute Lymphocyte Count 0.82 10^3/uL (1.2-3.4); Absolute Monocyte Count 0.52 10^3/uL (0.1-0.8); Basophils % 0.2; Eosinophils % 0.3; HCT 40.6 % (36.0-46.0); HGB 13.1 g/dL (11.2-15.7); Immature Grans % 2.5; Lymphocytes % 6.3; MCH 32.2 pg (27.0-33.0); MCHC 32.3 % (32.0-36.0); MCV 99.8 fL (80-95); MPV 11.8 fL (8.0-11.0); Neutrophils % 86.7; Nucleated RBC 0 %; Platelet Count 311 10^3/uL (130-400); RBC 4.07 10^6/uL (3.93-5.22); RDW 13.2 % (11.7-14.6); RDW-SD 48.1 fL; WBC 12.95 10^3/uL (4.4-10.8)
[2020-09-06 16:58] LABS: Absolute Neutrophil Count 11.23 10^3/uL (1.2-6.7)
--- NOTE | 2020-09-06 17:14 | NUR.NOTE ---
Nursing Note: Georgina sister [phone]
[2020-09-06 17:16] LABS: ALT 33 U/L (14-59); AST 14 U/L (15-37); Albumin 3.3 g/dL (3.4-5.0); Alkaline Phosphatase 83 U/L (46-116); Anion Gap 6.5 mmol/L (3-11); BUN 23 mg/dL (7-18); CO2 29.5 mmol/L (21.0-32.0); CREATININE 1.3 mg/dL (0.55-1.02); Calcium 9.3 mg/dL (8.5-10.1); Chloride 100 mmol/L (98-107); Estimated GFR 43.18 (mL/min/1.73m2); Glucose 113 mg/dL (74-106); Potassium 4.1 mmol/L (3.5-5.1); Sodium 136 mmol/L (136-145); Total Protein 6.8 g/dL (6.4-8.2)
[2020-09-06 17:18] LABS: Troponin I < 0.05 ng/mL (<0.06)
--- NOTE | 2020-09-06 19:15 | RT.EKG_ITS ---
APPROVED REPORT Exam: Resting ECG Reason for Exam: chest pain Patient Location: E HR:83 bpm ECG Measurements Heart Rate 83 AXIS LA 145 P 40 QRSd 64 QRS 17 QT 345 T 30 QTc 405 Conclusion Sinus rhythm...normal P axis, V-rate 60- 99 Physician: no stemi
--- NOTE | 2020-09-06 19:45 | DI.RAD_ITS ---
Exam(s) XR PORTABLE CHEST AP EXAM: XR PORTABLE CHEST AP CLINICAL HISTORY: chest pain TECHNIQUE: 2D digital imaging was performed. COMPARISON: No exams were available for comparison FINDINGS: MEDIASTINUM: Normal. HEART: Normal. PULMONARY VASCULATURE: Normal. LUNGS: Clear. PLEURAL SPACE: No pleural effusion or pneumothorax. BONE:Within normal limits for the patient's age. OTHER FINDINGS:The tip of the right IJ catheter is in good position at the junction of the superior v gail cava and right atrium. IMPRESSION: No acute pulmonary findings. DATA REPOSITORY: RADIATION DOSE DELIVERED:
[2020-09-06 20:25] LABS: Troponin I < 0.05 ng/mL (<0.06)
--- NOTE | 2020-09-06 20:36 | DI.VRAD_ITS ---
PROCEDURE INFORMATION: Exam: XR Chest Exam date and time: 09/06/2020 7:56 PM Age: 49 years old Clinical indication: Other: Chest pain; Prior surgery; Surgery date: 6+ months; Surgery type: Port-cath, RT lung TECHNIQUE: Imaging protocol: XR of the chest. Views: 1 view. COMPARISON: No relevant prior studies available. FINDINGS: Tubes, catheters and devices: MediPort terminates in the right atrium Overlying EKG wires Lungs: Unremarkable. No consolidation. Pleural spaces: Unremarkable. No pleural effusion. No pneumothorax. Heart/Mediastinum: Unremarkable. No cardiomegaly. Bones/joints: Unremarkable. IMPRESSION: No acute process Dictated and Authenticated by: Estefania Quintero MD. Ordering:NIMA Nelson MD
[2020-09-06] MEDS: Heparin 500 UNITS/5 ML SYRINGE (20:39)
== END 2020-09-06 20:40 | disposition home or self-care (01) ==
PROVIDERS: Emergency Provider Physician Assistant; PCP Family Medicine
DX: T45.1X5A Adverse effect of antineoplastic and immunosuppressive drugs, initial encounter (principal); R07.9 Chest pain, unspecified; R21 Rash and other nonspecific skin eruption; R06.02 Shortness of breath; Z45.2 Encounter for adjustment and management of vascular access device
CPT/HCPCS: 36415; 36591; 80053; 93005; 96361; 96374; 99285; 71045; 84484; 85025; 93010; 99284; J1200

== ENCOUNTER 2020-09-22 18:29 | Inpatient (IN) | payer OTHER, MEDICAID, SELFPAY ==
[2020-09-22] VITALS (43 sets, daily range): BP systolic 71–120; BP diastolic 36–96; PULSE 112–140; RESP 11–23; TEMP 36.8; O2SAT 89–98
[2020-09-22 19:22] LABS: Source Nasal/Nares
--- NOTE | 2020-09-22 19:32 | ED.GENADUL_ITS ---
Discharge Plan Disposition Patient Disposition: [facility] INPATIENT Condition: Stable Discharge Details Clinical Impression: Renal failure, Septic shock Admit Date/Time: 09/22/20 22:34 Admit Provider: Andrew Lomax Attending Provider: Andrew Lomax Primary Care Provider: Amy Hicks ED Provider: Celina Burgess Discharge Data Discharge Date/Time-TO BE ENTERED AT DEPARTURE: 09/22/20 23:17 Medical Decision Making Cancer patient referred to the ED for evaluation. She presents tachycardic and hypotensive with reports of fever, septic work-up is initiated. Lab draw and IV fluid bolus is delayed due to lack of IV access. Nursing unable to access mediport after 2 attempts. Eventually 2 peripheral lines were placed she was given IV fluid bolus 1 L normal saline with little improvement in her blood pressure. Second liter of fluid ordered and she is eventually started on levophed, to titrate to keep MAP greater than 60. She has voided once in the ED but it was mixed with stool so we were unable to send the urine for analysis. She is given 0.5 mg IV Dilaudid for pain including headache and back pain. After blood cultures are obtained she is given 1000 mg vancomycin IV piggyback and Zosyn 3.375 mg Diflucan 200 mg IV. Labs are reviewed and she is unable to get CT scan with IV contrast so orders changed to without. Head CT is negative and remaining CT reads are still pending. Her case is discussed with Dr Lomax and bed request is made for ICU level admission for management of sepsis requiring vasopressors, severe dehydration with kidney failure, sepsis most likely respiratory source with blood cultures pending. Her lactate is 0.5, added procalcitonin. She has been voiding and electrolytes are normal so no dialysis indicated at this time. Her blood pressures have improved slightly on levophed to SBP high 80's to 100's. HR trending down from 130's to 120's. care of patient and report given to Dr Lomax Medical Records Medical records reviewed: Yes I reviewed the patient's medical records. Lab Data Lab results reviewed: Yes I reviewed the patient's lab results. Lab results narrative: Laboratory Results - last 24 hr 09/22/20 09/22/20 09/22/20 19:15 19:55 19:55 WBC 2.46 L RBC 2.92 L Hgb 9.2 L Hct 28.5 L MCV 97.6 H MCH 31.5 MCHC 32.3 RDW 12.8 Plt Count 189 D MPV 11.4 H Immature Gran % 0.4 Neutrophils % 73.7 Lymphocytes % 14.6 Monocytes % 8.9 Eosinophils % 2.0 Basophils % 0.4 Nucleated RBC % 0 Absolute Neutrophils 1.81 Absolute Lymphocytes 0.36 L Absolute Monocytes 0.22 Absolute Eosinophils 0.05 Absolute Basophils 0.01 VBG Lactate Sodium 136 Potassium 4.1 Chloride 103 Carbon Dioxide 22.3 Anion Gap 10.7 BUN 36 H Creatinine 5.6 H* Estimated GFR/1.73 m2 8.01 Glucose 97 Calcium 9.1 Magnesium 2.1 Total Bilirubin 0.5 AST 22 ALT 16 Alkaline Phosphatase 112 Total Protein 6.3 L Albumin 2.5 L COVID-19 Source Nasal/Nares SARS-CoV-2 (PCR) Negative 09/22/20 20:12 WBC RBC Hgb Hct MCV MCH MCHC RDW Plt Count MPV Immature Gran % Neutrophils % Lymphocytes % Monocytes % Eosinophils % Basophils % Nucleated RBC % Absolute Neutrophils Absolute Lymphocytes Absolute Monocytes Absolute Eosinophils Absolute Basophils VBG Lactate 0.5 L Sodium Potassium Chloride Carbon Dioxide Anion Gap BUN Creatinine Estimated GFR/1.73 m2 Glucose Calcium Magnesium Total Bilirubin AST ALT Alkaline Phosphatase Total Protein Albumin COVID-19 Source SARS-CoV-2 (PCR) HPI General Date/Time Provider Initiated Documentation: 09/22/20 18:40 . Limitations to Documentation: no limitations . Information obtained by: patient . HPI Narrative: Patient referred to the emergency department from the cancer center for evaluation of complaints of malaise, headache, shortness of breath, cough and chills. She has had poor p.o. intake due to symptoms in addition to a sore throat, thought to be thrush. She has no documented fever but states she has had felt fevers with chills and sweats. she states she has been declining over past several days with symptoms starting on Saturday. is on chemo every 2 weeks, due on Saturday. Related Data Home Medications Medication Instructions Recorded Confirmed duloxetine [Cymbalta] 30 mg PO DAILY 08/11/12 09/23/20 levothyroxine [Synthroid] 150 mcg PO DAILY tab-cap 08/11/12 09/22/20 hydrocodone-acetaminophen 1 tab-cap PO Q6H PRN tab-cap 09/09/12 09/22/20 cyclobenzaprine 10 mg PO TID PRN 09/10/12 09/22/20 hydrocodone-acetaminophen [Vicodin] 1 tab-cap PO Q4H PRN #12 tab-cap 09/10/12 09/22/20 Viibryd 40 mg PO DAILY 08/18/20 09/22/20 carbidopa-levodopa 1 tab PO .QHS 08/18/20 09/22/20 cyanocobalamin (vitamin B-12) 1,000 mcg PO DAILY 08/18/20 09/22/20 enalapril maleate 5 mg PO DAILY 08/18/20 09/22/20 metoprolol succinate 25 mg PO DAILY 08/18/20 09/22/20 omeprazole 40 mg PO DAILY 08/18/20 09/22/20 vitamin Z17-[id number] acid 1 tab PO DAILY 08/18/20 09/22/20 zolpidem 5 mg PO .QHS 08/18/20 09/22/20 epinephrine 0.3 mg IM ONCE #1 ea 09/06/20 Previous Rx's Medication Instructions Recorded epinephrine 0.3 mg IM ONCE #1 ea 09/06/20 Allergies Allergy/AdvReac Type Severity Reaction Status Date / Time erythromycin base Allergy Intermediate flushed Unverified 09/06/20 16:20 [Erythromycin Base] and sick to her stomach. General Stated Complaint: GenMedical GUY: 3 Review of Systems All systems reviewed & are unremarkable except as noted in HPI and below Constitutional Constitutional: Reports anorexia, Reports chills, Reports headache(s), Reports lethargy, Reports malaise, Reports poor appetite and Reports weakness (generalized) ENT Ears, Nose, Mouth, and Throat: Reports headache(s) Neurologic Neurologic: Reports headache(s) and Reports weakness (generalized) [facility], [facility] Social History Smoking/Tobacco Use Status: Former Tobacco Use Smoking risk assessment performed?: Yes Alcohol Intake: never Drug use: Never Substance use type: does not use Do you feel safe at home: Yes Do you feel safe in your relationship?: Yes Exam Const General: cooperative, in distress moderate; not respiratory, cushingoid, frail appearing and ill appearing acutely and chronically Nutritional Appearance: overweight Orientation: alert, awake and oriented x3 HENMT Head: atraumatic Mouth: moist mucous membranes abnormal Resp Effort & Inspection: normal respiratory effort Auscultation: diminished lung sounds Cardio Rate: regular rate and tachycardic GI Inspection: normal to inspection Palpation: soft Skin General skin exam: pallor Neuro General: patient alert and patient awake Course Vital Signs Vital signs: Vital Signs Temperature 36.8 C 09/22/20 18:38 Pulse 130 H 09/22/20 18:38 Respiratory Rate 18 09/22/20 18:38 Blood Pressure 76/36 L 09/22/20 18:38 Temperature 36.8 C 09/22/20 18:38 Temperature Source Temporal Artery Scan 09/22/20 18:38 Pulse 127 H 09/22/20 19:26 Respiratory Rate 18 09/22/20 19:26 Respiratory Effort Non-Labored 09/22/20 19:26 Respiratory Depth Normal 09/22/20 19:26 Blood Pressure 108/72 09/22/20 19:26 Blood Pressure Mean 76 09/22/20 19:26 Blood Pressure Position Supine 09/22/20 18:38 Pulse Oximetry 92 09/22/20 19:27 Oxygen Delivery Method Room Air 09/22/20 18:38 Oxygen Flow Rate 0 09/22/20 18:38 Pain Level 8 09/22/20 18:38 Lab/Test Results Lab/Test Results: 09/22/20 18:54 Blood Blood Culture - Pending 09/22/20 18:54 Blood Blood Culture - Pending Laboratory Tests Range/Units 09/22/20 19:15 COVID-19 Source Nasal/Nares
[2020-09-22] MEDS: Normal Saline 1,000 ML 1000 ML IV (20:03)
[2020-09-22] MEDS: HYDROmorphone 2 MG/ML VIAL 0.5 MG IVP ×2 (20:05→22:08)
[2020-09-22] MEDS: Ondansetron 4 MG/2 ML VIAL IVP (20:06)
[2020-09-22 20:14] LABS: COVID-19 PCR Negative (Negative)
[2020-09-22 20:23] LABS: Abs Immature Grans 0.01 10^3/uL (0.0-0.06); Absolute Basophil Count 0.01 10^3/uL (0.0-0.2); Absolute Eosinophil Count 0.05 10^3/uL (0.0-0.7); Absolute Lymphocyte Count 0.36 10^3/uL (1.2-3.4); Absolute Monocyte Count 0.22 10^3/uL (0.1-0.8); Absolute Neutrophil Count 1.81 10^3/uL (1.2-6.7); Basophils % 0.4; HCT 28.5 % (36.0-46.0); HGB 9.2 g/dL (11.2-15.7); Immature Grans % 0.4; Lymphocytes % 14.6; MCH 31.5 pg (27.0-33.0); MCHC 32.3 % (32.0-36.0); MCV 97.6 fL (80-95); MPV 11.4 fL (8.0-11.0); Monocytes % 8.9; Neutrophils % 73.7; Nucleated RBC 0 %; Platelet Count 189 10^3/uL (130-400); RBC 2.92 10^6/uL (3.93-5.22); RDW 12.8 % (11.7-14.6); RDW-SD 46.3 fL; WBC 2.46 10^3/uL (4.4-10.8)
[2020-09-22 20:28] LABS: Lactate 0.5 mmol/L (0.6-1.4)
[2020-09-22] MEDS: PIPERACILLIN/TAZO 3.375 GM in Normal Saline 50 ML IVPB (20:42)
[2020-09-22 20:49] LABS: ALT 16 U/L (14-59); AST 22 U/L (15-37); Albumin 2.5 g/dL (3.4-5.0); Alkaline Phosphatase 112 U/L (46-116); Anion Gap 10.7 mmol/L (3-11); BUN 36 mg/dL (7-18); Bilirubin, Total 0.5 mg/dL (0.2-1.0); CO2 22.3 mmol/L (21.0-32.0); Calcium 9.1 mg/dL (8.5-10.1); Chloride 103 mmol/L (98-107); Estimated GFR 8.01 (mL/min/1.73m2); Glucose 97 mg/dL (74-106); Magnesium 2.1 mg/dL (1.8-2.4); Potassium 4.1 mmol/L (3.5-5.1); Sodium 136 mmol/L (136-145); Total Protein 6.3 g/dL (6.4-8.2)
[2020-09-22 20:52] LABS: CREATININE 5.6 mg/dL (0.55-1.02)
[2020-09-22] MEDS: VANCOMYCIN 1,000 MG in Normal Saline 250 ML 166.6666 MG IVPB (21:34)
--- NOTE | 2020-09-22 22:00 | DI.CT_ITS ---
Exam(s) CT CHEST/ABD/PEL WO EXAM: CT CHEST/ABD/PEL WO CLINICAL HISTORY: sepsis, cancer patient. TECHNIQUE: Imaging Protocol: Axial computed tomography images with coronal and sagittal reformatted images were created and reviewed CONTRAST MATERIAL: Noncontrast COMPARISON: CR,XR XR PORTABLE CHEST AP from 09/06/2020 FINDINGS: CHEST: There are significant ground-glass opacities seen in the majority of the right upper lobe. Mild grou nd-glass opacities are seen in the lower lobes. No area of consolidation. Scarring anterior right u pper lobe. trace right pleural effusion. Heart size normal. 3 centimeter right axillary lymph node versus fluid collection.. Increased densities right breast. Skin thickening over the right breast c ould be related to radiation therapy. No mediastinal or hilar adenopathy. The esophagus is moderate ly dilated and distended with fluid. There is mild esophageal wall thickening. Port-A-Cath over rig ht anterior chest. ABDOMEN: Liver: Normal density. No measurable mass. Gallbladder and biliary tract: Status post cholecystectomy. Mild postoperative biliary dilatation. Pancreas: Normal density, no abnormal calcifications or inflammatory process. Spleen: Normal. Kidneys: Normal size, contour and axis. No radiodense stones or obstructive uropathy. No masses seen. Adrenal glands: No masses seen. Aorta: Abdominal portion non-dilated. Lymph nodes: Within normal limits. PELVIS: Bladder: Symmetric distention, no gross wall thickening. Bowel: Stomach unremarkable. No small-bowel obstruction. Diffusely thickened colonic wall consisten t with colitis, infectious versus inflammatory, including C difficile. Peritoneal cavity: No ascites, collection or mesenteric inflammatory response. Bones: Degenerative changes. No lytic or blastic lesions are identified. Reproductive organs: Within normal limits. IMPRESSION: 1. Right upper lobe pneumonitis. Vague lower lobe infiltrates. 2. 3 centimeter right axillary lymph node versus seroma. 3. Dilated thickened esophagus. Fluid could indicate reflux. 4. Diffuse colitis. RADIATION DOSE DELIVERED: 1,382.59mGy.cm Total DLP DATA REPOSITORY: All CT scans at this facility are submitted to the National Radiology Data Registry (NRDR) Dose Index Registry (DIR) with the [employer] ([employer]). RADIATION OPTIMIZATION: All CT scans at this facility use at least one of these dose optimization te chniques: automated exposure control; mA and/or kV adjustment per patient size (includes targeted exa ms where dose is matched to clinical indication); or iterative reconstruction.
--- NOTE | 2020-09-22 22:12 | DI.CT_ITS ---
Exam(s) CT HEAD WO EXAM: CT HEAD WO CLINICAL HISTORY: headache. TECHNIQUE: Imaging Protocol: Axial computed tomography images with coronal and sagittal reformatted images were created and reviewed COMPARISON: No exams were available for comparison FINDINGS: Ventricles and Extra axial spaces: Mild asymmetric dilatation of the temporal horn of the right later al ventricle, which may be within normal limits of anatomic variation. Otherwise normal in size and morphology for the patient's age. Hemorrhage: None. Cerebral parenchyma: Calcification adjacent to the frontal horn of the left lateral ventricle.. Midline shift: None. Brainstem/Cerebellum: Normal. Calvarium: Normal. Visualized Paranasal sinuses/Mastoids: Clear. Soft Tissues: Unremarkable. IMPRESSION: No acute intracranial process. RADIATION DOSE DELIVERED: 749.04mGy.cm Total DLP DATA REPOSITORY: All CT scans at this facility are submitted to the National Radiology Data Registry (NRDR) Dose Index Registry (DIR) with the [employer] (ACR). RADIATION OPTIMIZATION: All CT scans at this facility use at least one of these dose optimization te chniques: automated exposure control; mA and/or kV adjustment per patient size (includes targeted exa ms where dose is matched to clinical indication); or iterative reconstruction.
[2020-09-22] MEDS: diphenhydrAMINE 50 MG/ML VIAL 25 MG IVP (22:25)
--- NOTE | 2020-09-22 22:40 | DI.VRAD_ITS ---
PROCEDURE INFORMATION: Exam: CT Head Without Contrast Exam date and time: 09/22/2020 9:36 PM Age: 49 years old Clinical indication: Pain; Headache not specified TECHNIQUE: Imaging protocol: Computed tomography of the head without contrast. Total images: 999 Radiation optimization: All CT scans at this facility use at least one of these dose optimization techniques: automated exposure control; mA and/or kV adjustment per patient size (includes targeted exams where dose is matched to clinical indication); or iterative reconstruction. COMPARISON: No relevant prior studies available. FINDINGS: Brain: No intra or extra-axial. No edema. Cerebral ventricles: There is mild dilatation right temporal horn of uncertain age but there is there no evidence of associated mass effect to suggest an acute finding.. Basal cisterns are patent. Paranasal sinuses: No mucosal thickening or fluid levels. Mastoid air cells: Mastoid air cells are clear. Orbital cavity: Unremarkable. Bones/joints: No significant bony abnormality. No fracture. Soft tissues: There is incidental small parenchymal calcification adjacent to the left horn. IMPRESSION: No acute intracranial abnormality. No bleed. Dictated and Authenticated by: Regino Silva MD. Ordering:AUBRIE Patrick MD
--- NOTE | 2020-09-22 23:11 | DI.VRAD_ITS ---
PROCEDURE INFORMATION: Exam: CT Chest Without Contrast; Diagnostic Exam date and time: 09/22/2020 9:13 PM Age: 49 years old Clinical indication: Abdominal pain; Patient HX: Sepsis, cancer patient; Additional info: Unable to do contrast enhanced images due o patients kidney funtion TECHNIQUE: Imaging protocol: Diagnostic computed tomography of the chest without contrast. COMPARISON: CR XR PORTABLE CHEST AP 09/06/2020 8:01 PM FINDINGS: Tubes, catheters and devices: Implanted Port-A-Cath in the right anterior chest wall extending into the right atrium. Lungs: Large region of ground-glass pulmonary opacity throughout much of the right upper lobe. Subtle regions of ground-glass opacity faintly suggested in the lower lobes as well. No region of micaela pulmonary consolidation. Pleural spaces: Trace pleural fluid on the right. No left-sided pleural effusion or pneumothorax. Heart: Normal-sized heart. Trace pericardial fluid. Mediastinal space: Abnormal fluid-filled distention of the mid-distal thoracic esophagus with circumferential esophageal wall thickening. Aorta: No thoracic aortic aneurysm. Lymph nodes: No pathologically enlarged mediastinal or hilar lymph nodes. Bones/joints: No acute fracture seen among the bones of the chest. Spinal degenerative change with anterior osteophytes at multiple levels. Mild thoracic kyphosis. Soft tissues: 2.2 cm x 2.5 cm spiculated soft tissue mass in the right axilla on image 18 of series 3, suspicious for a metastatic lymph node in a patient with a history of breast cancer. Asymmetrically prominent glandular breast tissue on the right with asymmetric skin thickening overlying the right breast, nonspecific. Known history of breast cancer by report. Notes: By report, the patient has a known history of breast cancer. IMPRESSION: 1. Large region of ground-glass pulmonary density in the right upper lobe. Subtle regions of ground-glass opacity faintly suggested in the lower lobes as well. An acute pulmonary infection is suspected primarily although clinical correlation is recommended. 2. Asymmetric prominence of the glandular breast tissue on the right with skin thickening overlying the right breast. Known history of breast cancer by report. 3. 2.2 cm x 2.5 cm spiculated soft tissue mass in the right axilla, suspicious for metastatic lymph node in a patient with a history of breast cancer. 4. Abnormal fluid-filled distention of the mid-distal thoracic esophagus with circumferential esophageal wall thickening. Fluid in the esophagus can be seen with gastroesophageal reflux. Esophageal wall thickening can be seen with esophagitis, possibly from reflux although an alternative cause of esophagitis is not excluded. Clinical correlation is recommended. The esophageal mucosa could be better evaluated by endoscopy, as clinically warranted. PROCEDURE INFORMATION: Exam: CT Abdomen And Pelvis Without Contrast Exam date and time: 09/22/2020 9:13 PM Age: 49 years old Clinical indication: Abdominal pain; Patient HX: Sepsis, cancer patient; Additional info: Unable to do contrast enhanced images due o patients kidney funtion TECHNIQUE: Imaging protocol: Computed tomography of the abdomen and pelvis without contrast. Radiation optimization: All CT scans at this facility use at least one of these dose optimization techniques: automated exposure control; mA and/or kV adjustment per patient size (includes targeted exams where dose is matched to clinical indication); or iterative reconstruction. COMPARISON: CR XR PORTABLE CHEST AP 09/06/2020 8:01 PM FINDINGS: Liver: Unenhanced liver grossly unremarkable, as seen. Gallbladder and bile ducts: Prior cholecystectomy with postop biliary dilatation. Pancreas: Pancreas partially obscured by close apposition of adjacent structures but grossly unremarkable, as seen. Spleen: Grossly unremarkable unenhanced spleen. Adrenal glands: Normal appearing adrenal glands. Kidneys and ureters: Grossly unremarkable unenhanced kidneys. No radiopaque urinary tract stones, hydronephrosis, or evidence of recent stone passage. Stomach and bowel: No oral contrast. Stomach partially decompressed. No small bowel dilatation to suggest obstruction. Mural thickening throughout much of the colon, most severe through the descending colon, sigmoid colon, and rectum with an appearance suggesting extensive colitis. Appendix: Appendix not identified, obscured if present. Correlation with surgical history recommended. Intraperitoneal space: No gross ascites or free air. Vasculature: Normal caliber abdominal aorta. Lymph nodes: No pathologically enlarged mesenteric, retroperitoneal, or pelvic sidewall lymph nodes. Urinary bladder: Normal appearing urinary bladder. Reproductive: Uterus and ovaries partially obscured and not well evaluated. No gross pelvic mass demonstrated. Bones/joints: Moderate discogenic degeneration at L3-L4. No acute fracture seen among the bones of the abdomen or pelvis. Soft tissues: Diastasis recti. Prior anterior abdominal wall repair. IMPRESSION: Mural thickening through much of the colon, most severe through the descending colon, sigmoid colon, and rectum with an appearance suggesting extensive colitis. Infectious or inflammatory causes would be favored. Although the appearance is nonspecific, C difficile colitis could have this appearance and should be excluded. Dictated and Authenticated by: Edmundo Mario MD. Ordering:AUBRIE Patrick MD
[2020-09-22 23:27] LABS: Procalcitonin 0.2 ng/mL
[2020-09-23] VITALS (196 sets, daily range): BP systolic 67–185; BP diastolic 36–96; PULSE 0–215; RESP 0–33; TEMP 35.8–36.3; O2SAT 88–100
[2020-09-23] MEDS: Normal Saline 1,000 ML 1000 ML IV ×4 (00:15→16:15)
[2020-09-23] MEDS: Heparin 5,000 UNITS/ML VIAL 5000 UNITS SC ×3 (00:23→23:59)
[2020-09-23] MEDS: Acetaminophen 500 MG TAB 1000 MG PO (00:29)
--- NOTE | 2020-09-23 00:35 | W.PM.HP.N ---
Date of service: 09/22/20 Time of Service: 23:53 Assessment and Plan Assessment and plan (1) Breast cancer: Status: Chronic Assessment and plan: On chemotx every 2 weeks. WBC count is low; immunocompromised. (2) Renal failure: Status: Chronic Assessment and plan: Appears to be pre-renal. Producing urine. K+ normal. Has had poor intake of fluids for several days. Aggressive IV hydration initiated. Worsened by hypotension. Cont Levophed. Creatinine in the AM. (3) Achalasia: Status: Acute Assessment and plan: Undergoes intermittent esophageal dilation. Cont PPI (4) Pneumonia: Status: Acute Assessment and plan: Covid 19 negative. Zosyn and Vanc initiated in the ED. She is immunocompromised from breast cancer and chemotx. Questionable need for on going vancomycin. The dose received in the ED will be active for an extended period of time d/t her acute renal failure. (5) Restless leg syndrome: Status: Acute Assessment and plan: On carbidopa-levadopa. Cont. (6) Depression: Status: Chronic Assessment and plan: Pharmacy to evaluate whether she is taking both Duloxatine and Viibryd or just one agent. (7) Back pain: Status: Acute Assessment and plan: Given a dose of IV dilaudid in the ED Hydrocodone ordered prn. Cont prn Flexeril which is on her home medication list. Qualifiers: Back pain location: low back pain Chronicity: chronic Sciatica presence: without sciatica (8) Hypothyroidism: Status: Chronic Assessment and plan: Cont replacement therapy. History of Present Illness History of Present Illness Chief Complaint: Shortness of air, cough Narrative: This is a 49 yo female with a PMH of breast cancer / tx started in 03/2020, GERD, acalasia, RLS, hypothyroidism, depression. She was referred to the emergency department from the cancer center for evaluation of complaints of malaise, headache, shortness of breath, cough and chills. She has had poor p.o. intake due to her symptoms in addition to a sore throat, thought to be thrush. She has no documented fever but states she has had felt fevers with chills and sweats. she states she has been declining over past several days with symptoms starting on Saturday. She is on chemo every 2 weeks. She endorses that she is due for esophageal dilitation but hasn't been able to schedule it d/t her breast cancer and treatment. Her WBC count was 2.46. Hgb 9.2. Platelets 189. Normal electrolytes. BUN 36. Creatinine 5.6 (1.3 on 09/06/2020). LFTs normal. Troponin normal. Procalcitonin normal. COVID [address] head negative for acute findings. CT chest/abd/pelvis: 1. Large region of ground-glass pulmonary density in the right upper lobe. Subtle regions of ground-glass opacity faintly suggested in the lower lobes as well. An acute pulmonary infection is suspected primarily although clinical correlation is recommended. 2. 2.2 cm x 2.5 cm spiculated soft tissue mass in the right axilla, suspicious for metastatic lymph node in a patient with a history of breast cancer. 3. Abnormal fluid-filled distention of the mid-distal thoracic esophagus with circumferential esophageal wall thickening. IV hydration initiated. Initial BP 76/36. Temp 36.1 - 36.8. IV hydration initiated with NS bolus of 1L. Levophed drip then initiated. EKG showed a HR of 95. Inverted T-waves in lead III. Zosyn and Vancomycin initiated in the ED. Admitted to the ICU for further fluid administration and Levophed. Review of Systems All systems reviewed & are unremarkable except as noted in HPI and below PFSH Social History Smoking/Tobacco Use Status: Former Tobacco Use Smoking risk assessment performed?: Yes Alcohol Intake: never Drug use: Never Substance use type: does not use Do you feel safe at home: Yes Do you feel safe in your relationship?: Yes Meds Allergies and Home Medications Allergies Allergy/AdvReac Type Severity Reaction Status Date / Time erythromycin base Allergy Intermediate flushed Unverified 09/06/20 16:20 [Erythromycin Base] and sick to her stomach. Home Medications Medication Instructions Recorded Confirmed Type duloxetine [Cymbalta] 30 mg PO DAILY 08/11/12 09/22/20 History levothyroxine [Synthroid] 150 mcg PO DAILY tab-cap 08/11/12 09/22/20 History hydrocodone-acetaminophen 1 tab-cap PO Q6H PRN tab-cap 09/09/12 09/22/20 History cyclobenzaprine 10 mg PO TID PRN 09/10/12 09/22/20 History hydrocodone-acetaminophen [Vicodin] 1 tab-cap PO Q4H PRN #12 tab-cap 09/10/12 09/22/20 History Viibryd 40 mg PO DAILY 08/18/20 09/22/20 History carbidopa-levodopa 1 tab PO .QHS 08/18/20 09/22/20 History cyanocobalamin (vitamin B-12) 1,000 mcg PO DAILY 08/18/20 09/22/20 History enalapril maleate 5 mg PO DAILY 08/18/20 09/22/20 History metoprolol succinate 25 mg PO DAILY 08/18/20 09/22/20 History omeprazole 40 mg PO DAILY 08/18/20 09/22/20 History vitamin B24-vhuvo acid 1 tab PO DAILY 08/18/20 09/22/20 History zolpidem 5 mg PO .QHS 08/18/20 09/22/20 History epinephrine 0.3 mg IM ONCE #1 ea 09/06/20 Rx Exam Const General: cooperative and no acute distress Orientation: alert and oriented x3 Eyes Sclera: sclerae normal Pupils: PERRL Resp Effort & Inspection: normal respiratory effort Auscultation: clear to auscultation bilaterally and diminished lung sounds Cardio Rate: tachycardic Rhythm: regular rhythm Heart Sounds: S1 normal and murmur (soft) systolic GI Palpation: soft and nontender Skin General skin exam: no erythema and no jaundice Rashes: no rashes Extrem General: no calf tenderness and edema Laterality: bilateral (Trace / feet) Psych Appearance: grossly normal Speech and Movement: speech and movement normal Affect: sad Attitude: cooperative Results Labs Result diagrams: 09/22/20 19:55 09/22/20 19:55 Labs: Laboratory Results - last 24 hr 09/22/20 09/22/20 09/22/20 19:15 19:55 19:55 WBC 2.46 L RBC 2.92 L Hgb 9.2 L Hct 28.5 L MCV 97.6 H MCH 31.5 MCHC 32.3 RDW 12.8 Plt Count 189 D MPV 11.4 H Immature Gran % 0.4 Neutrophils % 73.7 Lymphocytes % 14.6 Monocytes % 8.9 Eosinophils % 2.0 Basophils % 0.4 Nucleated RBC % 0 Absolute Neutrophils 1.81 Absolute Lymphocytes 0.36 L Absolute Monocytes 0.22 Absolute Eosinophils 0.05 Absolute Basophils 0.01 VBG Lactate Sodium 136 Potassium 4.1 Chloride 103 Carbon Dioxide 22.3 Anion Gap 10.7 BUN 36 H Creatinine 5.6 H* Estimated GFR/1.73 m2 8.01 Glucose 97 Calcium 9.1 Magnesium 2.1 Total Bilirubin 0.5 AST 22 ALT 16 Alkaline Phosphatase 112 Total Protein 6.3 L Albumin 2.5 L Procalcitonin COVID-19 Source Nasal/Nares SARS-CoV-2 (PCR) Negative 09/22/20 09/22/20 20:12 20:12 WBC RBC Hgb Hct MCV MCH MCHC RDW Plt Count MPV Immature Gran % Neutrophils % Lymphocytes % Monocytes % Eosinophils % Basophils % Nucleated RBC % Absolute Neutrophils Absolute Lymphocytes Absolute Monocytes Absolute Eosinophils Absolute Basophils VBG Lactate 0.5 L Sodium Potassium Chloride Carbon Dioxide Anion Gap BUN Creatinine Estimated GFR/1.73 m2 Glucose Calcium Magnesium Total Bilirubin AST ALT Alkaline Phosphatase Total Protein Albumin Procalcitonin 0.2 COVID-19 Source SARS-CoV-2 (PCR) Last Vital Signs Temp 36.8 C 09/22/20 23:36 Pulse 117 H 09/22/20 23:36 Resp 14 09/22/20 23:36 BP 110/51 L 09/22/20 23:36 Pulse Ox 96 09/22/20 23:36
[2020-09-23] MEDS: Pantoprazole 40 MG VIAL IVP ×2 (00:55→10:25)
[2020-09-23] MEDS: Normal Saline 1,000 ML 150 ML IV ×3 (02:57→19:24)
[2020-09-23] MEDS: HYDROmorphone 2 MG/ML VIAL 0.5 MG IVP (06:01)
[2020-09-23] MEDS: Levothyroxine 75 MCG TAB 150 MCG PO (06:12)
[2020-09-23 07:04] LABS: Basophils % 0.4; Eosinophils % 1.8; HGB 8.5 g/dL (11.2-15.7); Lymphocytes % 21.1; MCH 30.7 pg (27.0-33.0); MCHC 31.5 % (32.0-36.0); MCV 97.5 fL (80-95); Monocytes % 11.7; Neutrophils % 64.6; Platelet Count 192 10^3/uL (130-400); RBC 2.77 10^6/uL (3.93-5.22); WBC 2.23 10^3/uL (4.4-10.8)
[2020-09-23 07:05] LABS: Abs Immature Grans 0.01 10^3/uL (0.0-0.06); Absolute Basophil Count 0.01 10^3/uL (0.0-0.2); Absolute Eosinophil Count 0.04 10^3/uL (0.0-0.7); Absolute Lymphocyte Count 0.47 10^3/uL (1.2-3.4); Absolute Monocyte Count 0.26 10^3/uL (0.1-0.8); Absolute Neutrophil Count 1.44 10^3/uL (1.2-6.7); Immature Grans % 0.4; Nucleated RBC 0 %
[2020-09-23 07:16] LABS: Anion Gap 9.3 mmol/L (3-11); BUN 30 mg/dL (7-18); CO2 20.7 mmol/L (21.0-32.0); Calcium 8.3 mg/dL (8.5-10.1); Chloride 109 mmol/L (98-107); Estimated GFR 10.57 (mL/min/1.73m2); Glucose 119 mg/dL (74-106); Potassium 4.2 mmol/L (3.5-5.1); Sodium 139 mmol/L (136-145)
[2020-09-23 07:21] LABS: CREATININE 4.4 mg/dL (0.55-1.02)
--- NOTE | 2020-09-23 08:18 | PGE_ITS ---
Date of Service Date of service: 09/23/20 Time of Service: 10:35 Assessment and Plan Assessment and plan (1) Septic shock: Status: Acute Assessment and plan: On empiric vancomycin/zosyn, and IV metronidazole. R/o port infection/bacteremia. R/o C.Diff/other infectious colitis. Other possible sources: aspiration pneumonia, UTI. Port cultures are being obtained. Await UA/C.diff PCR/stool studies. Continue aggressive IVF. Wean pressors. Continue empiric abx. Await cultures. Will touch bases with [facility] hem/onc. (2) Pneumonitis: Status: Acute Assessment and plan: Etiologies: Aspiration pneumonia (vomited on Saturday after dinner), reaction to atezolizumab that the patient was on up until beginning august. COVID-19 ruled out. Continue empiric abx. Consider steroids. As above - will discuss with [facility] hem/onc. (3) Colitis: Status: Acute Assessment and plan: DDx: infectious (C.Diff, other infectious colitis) vs immune-mediated (atezolizumab). The patient has a h/o immune-mediated colitis for which she completed a steroid taper on Saturday. (4) Prerenal acute renal failure: Status: Acute Assessment and plan: In setting of dehydration, sepsis, chemotherapy. Hydrate aggressively. Monitor I/O's, daily weights, Cr. Munguia. No intrinsic renal pathology on CT. (5) Triple negative malignant neoplasm of breast: Status: Chronic Assessment and plan: Metastatic. S/p Abraxane/atezolizumab. On Eribulin (C1 on 09/20). Will touch base with [facility] heme/onc. (6) Acute anemia: Status: Acute Assessment and plan: heme +. Monitor H/H. (7) Leucopenia: Status: Acute Assessment and plan: Due to chemo. Not quite neutropenic. Will monitor WBC. Antibiotic support given current septic process. (8) Achalasia: Status: Chronic Assessment and plan: Will need an EGD on this admission once medically stable for procedure (not today). Requires periodic esophageal dilation. Continue IV PPI. NPO. (9) Esophageal dysphagia: Status: Acute Assessment and plan: As above (10) Hypothyroidism: Status: Chronic Assessment and plan: Continue levothyroxine. (11) DVT prophylaxis: Status: Acute Assessment and plan: TEDS/SCDs. Hole chemical DVT ppx in setting of active Heme + stools and worsening anemia (12) Discharge planning issues: Status: Acute Assessment and plan: Full code Keep in ICU. C/s palliative care Total Critical Care Time 60 minutes. Subjective Subjective Interval history since last seen: Ms Saldaña states she is freezing. She is having rigors, though is afebrile right now. Reports a migraine. Normally uses toradol, but she is in [place]. Just got norco. Denies neck pain, chest pain/abdominal pain, shortness of breath, nausea. Endorses vomiting on Saturday. Last chemo was on Saturday. Having diarrhea mixed with urine. heme + (not micaela blood). On pressors. Unable to wean levophed overnight, but MAPs are better this morning - 85 (129/69); levophed is being weaned off. Munguia inserted this morning. UOP not adequately measures overnight. Has an infusaport - being accessed. 2L - 98% - weaning. Exam Narrative Exam Narrative: General: Ill apearing middle-aged female, A&Ox3, having rigors HEENT: EOMI, dry MM Heart: RRR, tachycardic Lungs: CTAB Abdomen: soft, nontender, nondistended Extremities: no edema BLE's, 2+ pedal pulses B, extremities warm Objective Last Vital Signs Temp 36.2 C L 09/23/20 04:23 Pulse 104 H 09/23/20 04:23 Resp 17 09/23/20 04:23 BP 113/54 L 09/23/20 04:23 Pulse Ox 97 09/23/20 04:23 Laboratory Results - last 24 hr 09/22/20 09/22/20 09/22/20 19:15 19:55 19:55 WBC 2.46 L RBC 2.92 L Hgb 9.2 L Hct 28.5 L MCV 97.6 H MCH 31.5 MCHC 32.3 RDW 12.8 Plt Count 189 D MPV 11.4 H Immature Gran % 0.4 Neutrophils % 73.7 Lymphocytes % 14.6 Monocytes % 8.9 Eosinophils % 2.0 Basophils % 0.4 Nucleated RBC % 0 Absolute Neutrophils 1.81 Absolute Lymphocytes 0.36 L Absolute Monocytes 0.22 Absolute Eosinophils 0.05 Absolute Basophils 0.01 VBG Lactate Sodium 136 Potassium 4.1 Chloride 103 Carbon Dioxide 22.3 Anion Gap 10.7 BUN 36 H Creatinine 5.6 H* Estimated GFR/1.73 m2 8.01 Glucose 97 Calcium 9.1 Magnesium 2.1 Total Bilirubin 0.5 AST 22 ALT 16 Alkaline Phosphatase 112 Total Protein 6.3 L Albumin 2.5 L Procalcitonin COVID-19 Source Nasal/Nares SARS-CoV-2 (PCR) Negative 09/22/20 09/22/20 09/23/20 20:12 20:12 06:25 WBC RBC Hgb Hct MCV MCH MCHC RDW Plt Count MPV Immature Gran % Neutrophils % Lymphocytes % Monocytes % Eosinophils % Basophils % Nucleated RBC % Absolute Neutrophils Absolute Lymphocytes Absolute Monocytes Absolute Eosinophils Absolute Basophils VBG Lactate 0.5 L Sodium 139 Potassium 4.2 Chloride 109 H Carbon Dioxide 20.7 L Anion Gap 9.3 BUN 30 H Creatinine 4.4 H* D Estimated GFR/1.73 m2 10.57 Glucose 119 H Calcium 8.3 L Magnesium Total Bilirubin AST ALT Alkaline Phosphatase Total Protein Albumin Procalcitonin 0.2 COVID-19 Source SARS-CoV-2 (PCR) 09/23/20 06:25 WBC 2.23 L RBC 2.77 L Hgb 8.5 L Hct 27.0 L MCV 97.5 H MCH 30.7 MCHC 31.5 L RDW 13.0 Plt Count 192 MPV 11.0 Immature Gran % 0.4 Neutrophils % 64.6 Lymphocytes % 21.1 Monocytes % 11.7 Eosinophils % 1.8 Basophils % 0.4 Nucleated RBC % 0 Absolute Neutrophils 1.44 Absolute Lymphocytes 0.47 L Absolute Monocytes 0.26 Absolute Eosinophils 0.04 Absolute Basophils 0.01 VBG Lactate Sodium Potassium Chloride Carbon Dioxide Anion Gap BUN Creatinine Estimated GFR/1.73 m2 Glucose Calcium Magnesium Total Bilirubin AST ALT Alkaline Phosphatase Total Protein Albumin Procalcitonin COVID-19 Source SARS-CoV-2 (PCR)
[2020-09-23 08:31] LABS: Magnesium 1.9 mg/dL (1.8-2.4)
--- NOTE | 2020-09-23 08:58 | PDOC.CMIN ---
- If Service Date Differs Date of service: 09/23/20 Time of Service: 08:58 Care Management Initial Assess REASON FOR HOSPITALIZATION:: Acute Renal Failure PAST MEDICAL HISTORY/PAST SURGICAL HISTORY:: Medical History: Renal Failure, chest pain, breast cancer, allergic reaction, hypomagnesemia, diarrhea, achalasia, pneumonia, restless leg syndrome, depression, back pain, hypothyroidism. PREVIOUS FUNCTIONAL STATUS/SOCIAL/FAMILY SUPPORTS:: Virginia lives in [place]. She goes to the [facility] every two weeks for chemo, treating her breast cancer. She is independent at baseline. CURRENT FUNCTIONAL STATUS:: Virginia was sleeping when CM attempted to meet with her. Per RN, she still does not feel well, therefore CM did not wake her. Per report, she will remain in the ICU receiving aggressive IV fluids and empiric abx, awaiting cultures. Palliative care was consulted, as she is a full code. CM will continue to follow. ADVANCE DIRECTIVES:: None on file. Palliative care consulted. Has patient been provided with info about the portal/API?: Yes Did the patient sign up for the portal?: No CODE STATUS:: Full Code INSURANCE COVERAGE / FINANCIAL ISSUES:: [employer]/ [employer] CURRENT HOME/COMMUNITY SERVICES/EQUIPMENT:: No current services or equipment. PRIMARY CARE PHYSICIAN:: Amy Hicks POTENTIAL DISCHARGE NEEDS:: Palliative care, evaluations for further needs, follow up appointments. PATIENT/FAMILY EDUCATION NEEDS:: Review discharge instructions regarding activity levels and medications, discussion of self care needs and goals of care. ANTICIPATED BARRIERS TO DISCHARGE:: None identified at this time. TRANSPORTATION:: Via private vehicle by family when ready. PLAN:: Virginia continues to be monitored at ICU level of care. Anticipate she will return home once she is medically cleared. She will follow up with her PCP and discharge plan of care. CM will continue to follow.
[2020-09-23] MEDS: Metoprolol CR 25 MG TABCR PO (09:30)
[2020-09-23] MEDS: metroNIDAZOLE 500 MG/100 ML BAG 100 MG IVPB ×3 (10:23→23:58)
[2020-09-23] MEDS: HYDROcodone 10/Acetaminophen 325 TAB PO ×3 (10:24→21:42)
[2020-09-23] MEDS: PIPERACILLIN/TAZO 2.25 GM in Normal Saline 50 ML IVPB ×2 (10:24→18:28)
[2020-09-23] MEDS: Normal Saline Flush 10 ML SYR IVP (10:25)
[2020-09-23 11:55] LABS: C Diff PCR Positive (Negative)
[2020-09-23 12:01] LABS: Bilirubin Negative (Negative); Blood Trace-intact (Negative); Clarity Clear (Clear); Glucose Negative (Negative); Ketones Trace mg/dL (Negative); Leukocyte Esterase Negative (Negative); Nitrite Negative (Negative); Specific Gravity 1.015 (1.005-1.025); Urobilinogen 0.2 EU/dL (Up TO 0.2)
[2020-09-23 12:11] LABS: Bacteria Negative HPF (Negative); C & S Indicated? No; Casts Negative LPF (Negative); Crystals Negative HPF (Negative); Epithelial Cells Few HPF (Negative); Mucus Negative (Negative)
[2020-09-23 12:59] LABS: HCT 24.3 % (36.0-46.0); HGB 7.9 g/dL (11.2-15.7)
--- NOTE | 2020-09-23 16:45 | PHA.REVIEW ---
Pharmacy Admission Review - Admission Clinical Review Septic shock (Acute) Esophageal dysphagia (Acute) Discharge planning issues (Acute) DVT prophylaxis (Acute) Leucopenia (Acute) Acute anemia (Acute) Colitis (Acute) Pneumonitis (Acute) Prerenal acute renal failure (Acute) Septic shock (Acute) Back pain (Acute) Restless leg syndrome (Acute) Pneumonia (Acute) erythromycin base [Erythromycin Base] Allergy (Intermediate, Unverified 09/06/20 16:20) flushed and sick to her stomach. Resuscitation Status Full Code Height 5 ft 4 in Weight 82.3 kg - Renal Dosing Renal Dosing: BUN 30 mg/dL (7-18) H 09/23/20 06:25 Creatinine 4.4 mg/dL (0.55-1.02) H* D 09/23/20 06:25 Medications needing adjustments: Intervened List of meds needing interventions: zosyn is renally adjusted, vanco dosed at 500mg q24h based on current eCrCl of 14 ml/min - Anticoagulation Anticoagulation: Hgb 7.9 g/dL (11.2-15.7) L 09/23/20 12:40 Hct 24.3 % (36.0-46.0) L 09/23/20 12:40 Plt Count 192 10^3/uL (130-400) 09/23/20 06:25 Creatinine 4.4 mg/dL (0.55-1.02) H* D 09/23/20 06:25 DVT Prohphylaxis: Reviewed Medications: Heparin - Opiate Usage Evaluate Pain Scale/Pains Meds: Reviewed Scheduled Bowel Reg ordered if on Opiates?: No (+ for cdiff) - Relevant Labs Sodium 139 mmol/L (136-145) 09/23/20 06:25 Potassium 4.2 mmol/L (3.5-5.1) 09/23/20 06:25 Chloride 109 mmol/L (98-107) H 09/23/20 06:25 Magnesium 1.9 mg/dL (1.8-2.4) 09/23/20 06:25 Electrolytes, C-Reactive P, ESR: Reviewed - DM Control DM Control: Glucose 119 mg/dL (74-106) H 09/23/20 06:25 Insulin Dosing: N/A - Heart Failure/DE EF%, SALLIE's, B-Blockers, Diuretics: N/A - BP Control BP Control: Blood Pressure 114/71 Blood Pressure 103/61 Blood Pressure 103/62 Blood Pressure 105/62 Blood Pressure 103/53 Blood Pressure 101/58 Blood Pressure 102/54 Blood Pressure 94/55 Blood Pressure 98/49 Blood Pressure 98/56 Blood Pressure 107/53 Blood Pressure 94/56 Blood Pressure 67/36 Blood Pressure 103/54 Blood Pressure 101/50 Blood Pressure 102/49 Blood Pressure 112/62 Blood Pressure 103/53 Blood Pressure 105/57 Blood Pressure 103/60 Blood Pressure 109/63 Blood Pressure 108/54 Blood Pressure 125/69 Blood Pressure 112/64 Blood Pressure 121/70 Blood Pressure 117/62 Blood Pressure 113/68 Blood Pressure 121/54 Blood Pressure 114/59 Blood Pressure 118/54 Blood Pressure 117/60 Blood Pressure 118/60 Blood Pressure 117/72 Blood Pressure 122/64 Blood Pressure 123/71 Blood Pressure 127/80 Blood Pressure 135/74 Blood Pressure 121/81 Blood Pressure 120/66 Blood Pressure 120/74 Blood Pressure 92/71 Blood Pressure 129/69 Blood Pressure 125/77 Blood Pressure 126/63 Blood Pressure 132/68 Blood Pressure 120/66 Blood Pressure 122/63 Blood Pressure 133/81 Blood Pressure 130/64 Blood Pressure 129/59 Blood Pressure 134/71 Blood Pressure 143/59 Blood Pressure 127/59 Blood Pressure 124/63 Blood Pressure 120/57 If elevated: Reviewed (norepi gtt continues at 0.02 mcg/kig/min currently) - Qtc Review If Elevated: N/A - IV to PO Switch IV Medications: Reviewed - Home Meds Home Med List reviewed: Intervened Relevent Home Meds Not ordered & why?: reviewed home meds with patient's pharmacy -- all have been updated, not ordered: enalipril (jordyn) - Current meds Current Medication Order Review: Reviewed (compounding PO vanco into a liquid -- timed 4 times a day while awake) - Comments Comments/Follow Ups: IV Zosyn + Vancomycin + Metronidazole for empiric coverage in setting of septic shock, PO vanco for + c. diff
--- NOTE | 2020-09-23 16:57 | W.PALLCONSUL ---
Date of service: 09/23/20 Time of Service: 16:57 History of Present Illness Narrative: Virginia was seen in her room at the ICU. She is being treated for septic shock. She has been found to have c-diff colitis, she also has a port and pneumonitis. She is feeling better, not back to baseline, she is still quite weak and fatigued. She is still NPO at this point, she is thirsty. She reports that her breast cancer was diagnosed last fall and was noted to be metastatic to her lung at that time. She went on to have a lung resection and started treatment. She reports that she tried immunotherapy with chemo, which worked well initially but she went on to developed a reaction and it was stopped. She started a new chemo regimen with Eribulin on 09/20. She reports that her symptoms began the day prior to starting her new treatment cycle. Virginia reports that she has 3 kids, her youngest is 14 years old. She works at [employer] in [place]. 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 She is paid disability as needed for when she goes to appointments and when she is sick related to her cancer. We talked about goals. At this point, she wants to continue with the current treatment course. She is hopeful that progression will be slowed by this treatment. She remains a FULL CODE. She would not want to be on a ventilator for an extended period of time. She would allow mechanical ventilation for a month at this point. She thinks she will name her mother to be her health care agent. We will complete formal documentation for this tomorrow after she has a chance to think about it and discuss with her mother. Assessment and Plan Assessment and plan (1) Septic shock: Status: Acute (2) Triple negative malignant neoplasm of breast: Status: Chronic (3) Achalasia: Status: Chronic (4) Prerenal acute renal failure: Status: Acute (5) Pneumonitis: Status: Acute (6) Colitis: Status: Acute (7) Esophageal dysphagia: Status: Acute (8) Leucopenia: Status: Acute (9) Palliative care patient: Status: Acute Assessment and plan: Virginia is a very pleasant 49 year old with a past medical history significant for metastatic breast cancer, currently on treatment with Eribulin, s/p C1 on 09/20. She is currently in the ICU being treated for septic shock r/t c-diff colitis, she also has pneumonitis. She has achalasia with aspiration. She has previously had esophageal dilation, the plan is for her to have an EGD with dilation later on this admission. She is feeling much better overall. We discussed CODE STATUS, she remains a FULL CODE. She would only want mechanical ventilation for a month. We discussed the importance of naming someone to be her healthcare agent. She thinks she will name her mother. We will complete formal documentation tomorrow after she has a chance to discuss. She will benefit from outpatient follow up with Palliative care in the setting of metastatic breast cancer. Review of Systems All systems reviewed & are unremarkable except as noted in HPI and below [facility] Medical History (Updated 09/24/20 @ 08:26 by Krysten Tobin NP) Achalasia Colitis Depression Esophageal dysphagia Hypothyroidism Leucopenia Palliative care patient Pneumonitis Prerenal acute renal failure Restless leg syndrome Septic shock Septic shock Triple negative malignant neoplasm of breast Social History Smoking/Tobacco Use Status: Former Tobacco Use Smoking risk assessment performed?: Yes Alcohol Intake: never Drug use: Never Substance use type: does not use Do you feel safe at home: Yes Do you feel safe in your relationship?: Yes Exam Narrative Exam Narrative: General: very pleasant 49 year old female, laying in bed, awake and able to engage in conversation but appears weak and fatigued. HEENT: normocephalic, atraumatic, EOMI, mucous membranes slightly dry. Neck: supple, no JVD. Cardiovascular: heart sounds regular, tachycardic. Respiratory: respirations appear even and unlabored, lungs sound clear on limited anterior and lateral exam. GI: soft, nontender on palpation, nondistended, +BS. Extremities: no edema, extremities are warm to touch, pedal pulses palpable. Results Last Vital Signs Temp 36.0 C L 09/23/20 11:30 Pulse 99 H 09/23/20 15:15 Resp 11 L 09/23/20 15:15 BP 114/71 09/23/20 15:15 Pulse Ox 98 09/23/20 15:15 Labs Result diagrams: 09/24/20 06:53 09/24/20 06:53 Labs: Laboratory Results - last 24 hr 09/22/20 09/22/20 09/22/20 19:15 19:55 19:55 WBC 2.46 L RBC 2.92 L Hgb 9.2 L Hct 28.5 L MCV 97.6 H MCH 31.5 MCHC 32.3 RDW 12.8 Plt Count 189 D MPV 11.4 H Immature Gran % 0.4 Neutrophils % 73.7 Lymphocytes % 14.6 Monocytes % 8.9 Eosinophils % 2.0 Basophils % 0.4 Nucleated RBC % 0 Absolute Neutrophils 1.81 Absolute Lymphocytes 0.36 L Absolute Monocytes 0.22 Absolute Eosinophils 0.05 Absolute Basophils 0.01 VBG Lactate Sodium 136 Potassium 4.1 Chloride 103 Carbon Dioxide 22.3 Anion Gap 10.7 BUN 36 H Creatinine 5.6 H* Estimated GFR/1.73 m2 8.01 Glucose 97 Calcium 9.1 Magnesium 2.1 Total Bilirubin 0.5 AST 22 ALT 16 Alkaline Phosphatase 112 Total Protein 6.3 L Albumin 2.5 L Procalcitonin Urine Color Urine Clarity Urine pH Ur Specific [place] Urine Protein Urine Ketones Urine Blood Urine Nitrite Urine Bilirubin Urine Urobilinogen Ur Leukocyte Esterase Urine RBC Urine WBC Ur Epithelial Cells Urine Crystals Urine Bacteria Urine Casts Urine Mucus Ur Culture Indicated? Urine Glucose Stl C.difficile Tox PCR COVID-19 Source Nasal/Nares SARS-CoV-2 (PCR) Negative 09/22/20 09/22/20 09/23/20 20:12 20:12 06:25 WBC RBC Hgb Hct MCV MCH MCHC RDW Plt Count MPV Immature Gran % Neutrophils % Lymphocytes % Monocytes % Eosinophils % Basophils % Nucleated RBC % Absolute Neutrophils Absolute Lymphocytes Absolute Monocytes Absolute Eosinophils Absolute Basophils VBG Lactate 0.5 L Sodium 139 Potassium 4.2 Chloride 109 H Carbon Dioxide 20.7 L Anion Gap 9.3 BUN 30 H Creatinine 4.4 H* D Estimated GFR/1.73 m2 10.57 Glucose 119 H Calcium 8.3 L Magnesium Total Bilirubin AST ALT Alkaline Phosphatase Total Protein Albumin Procalcitonin 0.2 Urine Color Urine Clarity Urine pH Ur Specific [place] Urine Protein Urine Ketones Urine Blood Urine Nitrite Urine Bilirubin Urine Urobilinogen Ur Leukocyte Esterase Urine RBC Urine WBC Ur Epithelial Cells Urine Crystals Urine Bacteria Urine Casts Urine Mucus Ur Culture Indicated? Urine Glucose Stl C.difficile Tox PCR COVID-19 Source SARS-CoV-2 (PCR) 09/23/20 09/23/20 09/23/20 06:25 06:25 09:00 WBC 2.23 L RBC 2.77 L Hgb 8.5 L Hct 27.0 L MCV 97.5 H MCH 30.7 MCHC 31.5 L RDW 13.0 Plt Count 192 MPV 11.0 Immature Gran % 0.4 Neutrophils % 64.6 Lymphocytes % 21.1 Monocytes % 11.7 Eosinophils % 1.8 Basophils % 0.4 Nucleated RBC % 0 Absolute Neutrophils 1.44 Absolute Lymphocytes 0.47 L Absolute Monocytes 0.26 Absolute Eosinophils 0.04 Absolute Basophils 0.01 VBG Lactate Sodium Potassium Chloride Carbon Dioxide Anion Gap BUN Creatinine Estimated GFR/1.73 m2 Glucose Calcium Magnesium 1.9 Total Bilirubin AST ALT Alkaline Phosphatase Total Protein Albumin Procalcitonin Urine Color Yellow Urine Clarity Clear Urine pH 6.0 Ur Specific [place] 1.015 Urine Protein Negative Urine Ketones Trace H Urine Blood Trace-intact H Urine Nitrite Negative Urine Bilirubin Negative Urine Urobilinogen 0.2 Ur Leukocyte Esterase Negative Urine RBC 3-5 H Urine WBC 3-5 Ur Epithelial Cells Few Urine Crystals Negative Urine Bacteria Negative Urine Casts Negative Urine Mucus Negative Ur Culture Indicated? No Urine Glucose Negative Stl C.difficile Tox PCR COVID-19 Source SARS-CoV-2 (PCR) 09/23/20 09/23/20 09:00 12:40 WBC RBC Hgb 7.9 L Hct 24.3 L MCV MCH MCHC RDW Plt Count MPV Immature Gran % Neutrophils % Lymphocytes % Monocytes % Eosinophils % Basophils % Nucleated RBC % Absolute Neutrophils Absolute Lymphocytes Absolute Monocytes Absolute Eosinophils Absolute Basophils VBG Lactate Sodium Potassium Chloride Carbon Dioxide Anion Gap BUN Creatinine Estimated GFR/1.73 m2 Glucose Calcium Magnesium Total Bilirubin AST ALT Alkaline Phosphatase Total Protein Albumin Procalcitonin Urine Color Urine Clarity Urine pH Ur Specific [place] Urine Protein Urine Ketones Urine Blood Urine Nitrite Urine Bilirubin Urine Urobilinogen Ur Leukocyte Esterase Urine RBC Urine WBC Ur Epithelial Cells Urine Crystals Urine Bacteria Urine Casts Urine Mucus Ur Culture Indicated? Urine Glucose Stl C.difficile Tox PCR Positive A COVID-19 Source SARS-CoV-2 (PCR)
--- NOTE | 2020-09-23 17:08 | SCONE_ITS ---
Date of service: 09/23/20 Time of Service: 17:08 Assessment and Plan Assessment and plan (1) Septic shock: Status: Acute Assessment and plan: supportive care anitbiotics IV fluids (2) Leucopenia: Status: Acute (3) Septic shock: Status: Acute (4) Achalasia: Status: Chronic Assessment and plan: Pt will need repeat EGD with dilation once she is stabilized. It may occur with [place] regular [place] [facility] or here, if she cannot handle drinking fluids. Will follow. (5) Renal failure: Status: Chronic Assessment and plan: supportive care serial labs IV fluids (6) Colitis: Status: Acute Assessment and plan: supportive care anitbiotics IV fluids History of Present Illness History of Present Illness Chief Complaint: septic shock, difficulty swallowing with h/o achalasia Narrative: This is a 49yo female with history of triple negative breast cancer on chemotherapy, last treatment on 09/20, who presented with shortness of breath, and found to be in septic shock. She has a long known history of achalasia, and prior to the COVID pandemic and her breast cancer diagnosis (in 03/20)., was undergoing EGD with dilation q6 months. She believes her last dilation was 1.5- 2 years ago. She states that she tolerates drinking liquids, and has problems with solids only when she is distracted and forgets to chew thoroughly. Her last episode of emesis/regurgitation was on 09/19. She denies odynophagia. On this admission, she also has been diagnosed with C.diff, and ARF. Consults Consult date: 09/23/20 Requesting physician: Marimar Hodges Review of Systems Constitutional Constitutional: Reports chills and Reports fever(s) Eyes Eyes: Denies blurry vision ENT Ears, Nose, Mouth, and Throat: Reports dysphagia and Denies odynophagia Cardiovascular Cardiovascular: Denies chest pain, Denies lightheadedness and Denies dyspnea Respiratory Respiratory: Reports cough and Denies dyspnea Gastrointestinal Gastrointestinal: Denies abdominal pain, Denies change in bowel habits, Reports dysphagia, Reports early satiety and Denies odynophagia Genitourinary Genitourinary: Denies difficulty voiding and Denies urinary urgency Musculoskeletal Musculoskeletal: Denies arthralgias, Denies joint swelling and Denies radiating pain into limb Integumentary/Breasts Skin/Breast: Reports breast mass Comments: metastatic breast cancer Neurologic Neurologic: Denies paresthesias [facility] Medical History (Updated 09/24/20 @ 08:26 by Krysten Tobin NP) Achalasia Colitis Depression Esophageal dysphagia Hypothyroidism Leucopenia Palliative care patient Pneumonitis Prerenal acute renal failure Restless leg syndrome Septic shock Septic shock Triple negative malignant neoplasm of breast Social History Smoking/Tobacco Use Status: Former Tobacco Use Smoking risk assessment performed?: Yes Alcohol Intake: never Drug use: Never Substance use type: does not use Do you feel safe at home: Yes Do you feel safe in your relationship?: Yes Exam Const General: cooperative, comfortable and no acute distress Nutritional Appearance: obese Orientation: alert, awake and oriented x3 HENMT Head: normocephalic and no raccoon eyes Mouth: No moist mucous membranes abnormal Neck Neck: trachea midline and supple Chest Other: mediport accessed in right chest Resp Effort & Inspection: normal respiratory effort, able to speak in complete sentences, no grunting, not labored, no nasal flaring and not tachypneic Auscultation: clear to auscultation bilaterally Cardio Rate: regular rate Rhythm: regular rhythm Heart Sounds: S1 normal and S2 normal GI Palpation: soft, not firm, no guarding and nontender Auscultation: hypoactive bowel sounds Skin Rashes: rash noted Neuro General: patient alert, patient awake and patient oriented x3 Cognition: normal cognition Speech: speech normal Extrem General: no calf tenderness, no clubbing, no cyanosis and no edema Psych Appearance: grossly normal Mental Status: mental status grossly normal Speech and Movement: speech and movement normal Mood: congruent mood Affect: normal affect Attitude: cooperative Thought Process: normal Thought Content: normal Insight: insight good Judgment: judgment good Results Last Vital Signs Temp 96.8 F L 09/23/20 11:30 Pulse 99 H 09/23/20 15:15 Resp 11 L 09/23/20 15:15 BP 114/71 09/23/20 15:15 Pulse Ox 98 09/23/20 15:15 Labs Result diagrams: 09/24/20 06:53 09/24/20 06:53 Labs: Laboratory Results - last 24 hr 09/22/20 09/22/20 09/22/20 19:15 19:55 19:55 WBC 2.46 L RBC 2.92 L Hgb 9.2 L Hct 28.5 L MCV 97.6 H MCH 31.5 MCHC 32.3 RDW 12.8 Plt Count 189 D MPV 11.4 H Immature Gran % 0.4 Neutrophils % 73.7 Lymphocytes % 14.6 Monocytes % 8.9 Eosinophils % 2.0 Basophils % 0.4 Nucleated RBC % 0 Absolute Neutrophils 1.81 Absolute Lymphocytes 0.36 L Absolute Monocytes 0.22 Absolute Eosinophils 0.05 Absolute Basophils 0.01 VBG Lactate Sodium 136 Potassium 4.1 Chloride 103 Carbon Dioxide 22.3 Anion Gap 10.7 BUN 36 H Creatinine 5.6 H* Estimated GFR/1.73 m2 8.01 Glucose 97 Calcium 9.1 Magnesium 2.1 Total Bilirubin 0.5 AST 22 ALT 16 Alkaline Phosphatase 112 Total Protein 6.3 L Albumin 2.5 L Procalcitonin Urine Color Urine Clarity Urine pH Ur Specific [place] Urine Protein Urine Ketones Urine Blood Urine Nitrite Urine Bilirubin Urine Urobilinogen Ur Leukocyte Esterase Urine RBC Urine WBC Ur Epithelial Cells Urine Crystals Urine Bacteria Urine Casts Urine Mucus Ur Culture Indicated? Urine Glucose Stl C.difficile Tox PCR COVID-19 Source Nasal/Nares SARS-CoV-2 (PCR) Negative 09/22/20 09/22/20 09/23/20 20:12 20:12 06:25 WBC RBC Hgb Hct MCV MCH MCHC RDW Plt Count MPV Immature Gran % Neutrophils % Lymphocytes % Monocytes % Eosinophils % Basophils % Nucleated RBC % Absolute Neutrophils Absolute Lymphocytes Absolute Monocytes Absolute Eosinophils Absolute Basophils VBG Lactate 0.5 L Sodium 139 Potassium 4.2 Chloride 109 H Carbon Dioxide 20.7 L Anion Gap 9.3 BUN 30 H Creatinine 4.4 H* D Estimated GFR/1.73 m2 10.57 Glucose 119 H Calcium 8.3 L Magnesium Total Bilirubin AST ALT Alkaline Phosphatase Total Protein Albumin Procalcitonin 0.2 Urine Color Urine Clarity Urine pH Ur Specific [place] Urine Protein Urine Ketones Urine Blood Urine Nitrite Urine Bilirubin Urine Urobilinogen Ur Leukocyte Esterase Urine RBC Urine WBC Ur Epithelial Cells Urine Crystals Urine Bacteria Urine Casts Urine Mucus Ur Culture Indicated? Urine Glucose Stl C.difficile Tox PCR COVID-19 Source SARS-CoV-2 (PCR) 09/23/20 09/23/20 09/23/20 06:25 06:25 09:00 WBC 2.23 L RBC 2.77 L Hgb 8.5 L Hct 27.0 L MCV 97.5 H MCH 30.7 MCHC 31.5 L RDW 13.0 Plt Count 192 MPV 11.0 Immature Gran % 0.4 Neutrophils % 64.6 Lymphocytes % 21.1 Monocytes % 11.7 Eosinophils % 1.8 Basophils % 0.4 Nucleated RBC % 0 Absolute Neutrophils 1.44 Absolute Lymphocytes 0.47 L Absolute Monocytes 0.26 Absolute Eosinophils 0.04 Absolute Basophils 0.01 VBG Lactate Sodium Potassium Chloride Carbon Dioxide Anion Gap BUN Creatinine Estimated GFR/1.73 m2 Glucose Calcium Magnesium 1.9 Total Bilirubin AST ALT Alkaline Phosphatase Total Protein Albumin Procalcitonin Urine Color Yellow Urine Clarity Clear Urine pH 6.0 Ur Specific [place] 1.015 Urine Protein Negative Urine Ketones Trace H Urine Blood Trace-intact H Urine Nitrite Negative Urine Bilirubin Negative Urine Urobilinogen 0.2 Ur Leukocyte Esterase Negative Urine RBC 3-5 H Urine WBC 3-5 Ur Epithelial Cells Few Urine Crystals Negative Urine Bacteria Negative Urine Casts Negative Urine Mucus Negative Ur Culture Indicated? No Urine Glucose Negative Stl C.difficile Tox PCR COVID-19 Source SARS-CoV-2 (PCR) 09/23/20 09/23/20 09:00 12:40 WBC RBC Hgb 7.9 L Hct 24.3 L MCV MCH MCHC RDW Plt Count MPV Immature Gran % Neutrophils % Lymphocytes % Monocytes % Eosinophils % Basophils % Nucleated RBC % Absolute Neutrophils Absolute Lymphocytes Absolute Monocytes Absolute Eosinophils Absolute Basophils VBG Lactate Sodium Potassium Chloride Carbon Dioxide Anion Gap BUN Creatinine Estimated GFR/1.73 m2 Glucose Calcium Magnesium Total Bilirubin AST ALT Alkaline Phosphatase Total Protein Albumin Procalcitonin Urine Color Urine Clarity Urine pH Ur Specific [place] Urine Protein Urine Ketones Urine Blood Urine Nitrite Urine Bilirubin Urine Urobilinogen Ur Leukocyte Esterase Urine RBC Urine WBC Ur Epithelial Cells Urine Crystals Urine Bacteria Urine Casts Urine Mucus Ur Culture Indicated? Urine Glucose Stl C.difficile Tox PCR Positive A COVID-19 Source SARS-CoV-2 (PCR) Imaging Abdomen CT scan report/results: report reviewed and image reviewed CT scan - pelvis: report reviewed and image reviewed Additional studies: CT Chest/Abd/Pel (09/22/20): IMPRESSION: 1. Right upper lobe pneumonitis. Vague lower lobe infiltrates. 2. 3 centimeter right axillary lymph node versus seroma. 3. Dilated thickened esophagus. Fluid could indicate reflux. 4. Diffuse colitis.
[2020-09-23] MEDS: VANCOMYCIN 500 MG in Normal Saline 100 ML 100 MG IV (19:25)
[2020-09-23] MEDS: FAMOTIDINE 20 MG/50 ML BAG 200 MG IVPB (20:06)
[2020-09-23] MEDS: Zolpidem 5 MG TAB PO (21:42)
[2020-09-23] MEDS: Carbidopa 25/Levodopa 100 TAB PO (21:42)
[2020-09-23 23:03] LABS: Campylobacter PCR Negative (Negative); Salmonella PCR Negative (Negative); Shiga Toxin PCR Negative (Negative); Shigella/Enteroinvasive Ecoli Negative (Negative)
[2020-09-24] VITALS (40 sets, daily range): BP systolic 102–132; BP diastolic 52–76; PULSE 85–108; RESP 3–21; TEMP 35.9; O2SAT 85–100
[2020-09-24] MEDS: PIPERACILLIN/TAZO 2.25 GM in Normal Saline 50 ML IVPB ×3 (02:12→19:09)
[2020-09-24] MEDS: Normal Saline 1,000 ML 150 ML IV (03:02)
[2020-09-24] MEDS: HYDROcodone 10/Acetaminophen 325 TAB PO (03:17)
[2020-09-24] MEDS: Levothyroxine 75 MCG TAB 150 MCG PO (06:39)
[2020-09-24] MEDS: Normal Saline Flush 10 ML SYR IVP ×2 (06:39→14:07)
[2020-09-24 07:08] LABS: Abs Immature Grans 0.01 10^3/uL (0.0-0.06); Absolute Basophil Count 0.01 10^3/uL (0.0-0.2); Absolute Eosinophil Count 0.08 10^3/uL (0.0-0.7); Absolute Lymphocyte Count 0.36 10^3/uL (1.2-3.4); Absolute Monocyte Count 0.09 10^3/uL (0.1-0.8); Basophils % 0.6; Eosinophils % 4.6; HGB 7.6 g/dL (11.2-15.7); Immature Grans % 0.6; Lymphocytes % 20.6; MCH 32.1 pg (27.0-33.0); MCHC 31.7 % (32.0-36.0); MCV 101.3 fL (80-95); MPV 10.2 fL (8.0-11.0); Monocytes % 5.1; Neutrophils % 68.5; Nucleated RBC 0 %; Platelet Count 165 10^3/uL (130-400); RBC 2.37 10^6/uL (3.93-5.22); RDW 13.2 % (11.7-14.6); RDW-SD 49.1 fL
[2020-09-24 07:17] LABS: Anion Gap 12.3 mmol/L (3-11); BUN 18 mg/dL (7-18); C-Reactive Protein 8.53 mg/dL (0.0-0.3); CO2 18.7 mmol/L (21.0-32.0); CREATININE 2.5 mg/dL (0.55-1.02); Calcium 8.6 mg/dL (8.5-10.1); Chloride 114 mmol/L (98-107); Glucose 81 mg/dL (74-106); Sodium 145 mmol/L (136-145)
[2020-09-24 07:29] LABS: Iron 49 ug/dL (50-170); Total Iron Binding Capacity 163 ug/dL (250-450); Transferrin Sat 30 % (15-50)
[2020-09-24 07:31] LABS: WBC 1.75 10^3/uL (4.4-10.8)
[2020-09-24 07:32] LABS: Diff Comment Diff Reviewed; Hypochromasia 1+; Macrocytosis 1+
[2020-09-24 07:43] LABS: Ferritin 451 ng/mL (8-252)
[2020-09-24 07:46] LABS: Folate > 20.0 ng/mL (8.6-20.0); Vitamin B12 > 2000 pg/mL (193-986)
[2020-09-24] MEDS: metroNIDAZOLE 500 MG/100 ML BAG 100 MG IVPB ×3 (08:14→22:48)
[2020-09-24] MEDS: Heparin 5,000 UNITS/ML VIAL 5000 UNITS SC ×3 (08:15→22:47)
[2020-09-24] MEDS: Folic Acid 1 MG TAB PO (08:15)
[2020-09-24] MEDS: Normal Saline 1,000 ML 100 ML IV ×2 (11:53→22:47)
--- NOTE | 2020-09-24 13:33 | W.PM.PROGNOT ---
Date of Service Date of service: 09/24/20 Time of Service: 09:34 Assessment and Plan Assessment and plan (1) Palliative care patient: Status: Acute Assessment and plan: Appreciate palliative consultation (2) Achalasia: Status: Chronic Assessment and plan: She has not had a dilation for appx 1.5 yrs; was undergoing dilation appx [id number] previously. General Surgery consult and would like her to be more removed from current acute issues prior to dilation procedure. 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 Primarily is still taking in only liquids. (3) Pneumonitis: Status: Acute Assessment and plan: On Zosyn and Vancomycin IV. Consider changing to oral antibiotic soon. 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 On oral vancomycin / liquid form. (5) Triple negative malignant neoplasm of breast: Status: Chronic Assessment and plan: Undergoing chemotx. Metastatic. (6) Acute anemia: Status: Acute Assessment and plan: Hgb trending downward: 9.2 >>7.6 Some dilutional effect but stool was heme +. No gross bleeding noted. Monitor H/H. Subjective Subjective Patient reports: no new complaints, tolerating liquids well, diarrhea (Less frequent, sometimes having difficulty making it to the commode in time) and afebrile; denies nausea, vomiting and shortness of breath Exam Const General: cooperative and no acute distress Orientation: alert and oriented x3 Resp Effort & Inspection: normal respiratory effort Auscultation: clear to auscultation bilaterally Cardio Rate: bradycardic Rhythm: regular rhythm Heart Sounds: S1 normal and S2 normal GI Palpation: soft and nontender Extrem General: no pedal edema and no calf tenderness Psych Appearance: grossly normal Mental Status: mental status grossly normal Mood: other (Intermittently sad and tearful.) Objective Last Vital Signs Temp 35.9 C L 09/24/20 07:30 Pulse 96 H 09/24/20 08:00 Resp 17 09/24/20 08:30 BP 113/65 09/24/20 08:00 Pulse Ox 100 09/24/20 08:30 Laboratory Results - last 24 hr 09/24/20 09/24/20 09/24/20 06:53 06:53 06:53 WBC 1.75 L* RBC 2.37 L Hgb 7.6 L Hct 24.0 L MCV 101.3 H MCH 32.1 MCHC 31.7 L RDW 13.2 Plt Count 165 MPV 10.2 Immature Gran % 0.6 Neutrophils % 68.5 Lymphocytes % 20.6 Monocytes % 5.1 Eosinophils % 4.6 Basophils % 0.6 Nucleated RBC % 0 Absolute Neutrophils 1.20 Absolute Lymphocytes 0.36 L Absolute Monocytes 0.09 L Absolute Eosinophils 0.08 Absolute Basophils 0.01 RBC Morphology See Below Hypochromasia 1+ Macrocytosis 1+ Sodium 145 Potassium 4.0 Chloride 114 H Carbon Dioxide 18.7 L Anion Gap 12.3 H BUN 18 D Creatinine 2.5 H D Estimated GFR/1.73 m2 20.30 Glucose 81 Calcium 8.6 Iron 49 L TIBC 163 L Transferrin % Sat 30 Ferritin 451 H C-Reactive Protein 8.53 H Vitamin B12 Folate 09/24/20 06:53 WBC RBC Hgb Hct MCV MCH MCHC RDW Plt Count MPV Immature Gran % Neutrophils % Lymphocytes % Monocytes % Eosinophils % Basophils % Nucleated RBC % Absolute Neutrophils Absolute Lymphocytes Absolute Monocytes Absolute Eosinophils Absolute Basophils RBC Morphology Hypochromasia Macrocytosis Sodium Potassium Chloride Carbon Dioxide Anion Gap BUN Creatinine Estimated GFR/1.73 m2 Glucose Calcium Iron TIBC Transferrin % Sat Ferritin C-Reactive Protein Vitamin B12 > 2000 H Folate > 20.0 H
[2020-09-24] MEDS: Ondansetron 4 MG/2 ML VIAL IVP ×2 (14:13→19:34)
--- NOTE | 2020-09-24 14:13 | W.PM.PROGNOT ---
Date of Service Date of service: 09/24/20 Time of Service: 14:13 Assessment and Plan Assessment and plan (1) Septic shock: Status: Resolved Assessment and plan: supportive care antibiotics (2) Achalasia: Status: Chronic Assessment and plan: Pt is tolerating oral intake without nausea/vomiting, or apparent aspiration. --continue liquid/soft diet --f/u at [facility] as outpatient --will sign off, please reconsult as necessary Pt discussed with Dr. Lomax, Hospitalist (3) Colitis: Status: Acute Assessment and plan: Pt found to have C. diff colitis on admission. She is not having further diarrhea, and her abdominal exam is benign. No concerns for toxic megacolon/severe colitis. supportive care anitbiotics IV fluids (4) Leucopenia: Status: Acute (5) Renal failure: Status: Chronic Assessment and plan: supportive care serial labs IV fluids Subjective Subjective Patient reports: no new complaints, tolerating liquids well and flatus; denies diarrhea, vomiting and shortness of breath Interval history since last seen: Pt is feeling okay. More depressed today. No further diarrhea today. Denies any pain. Tolerating oral intake of liquids without significant nausea or vomiting. Exam Const General: cooperative, comfortable and no acute distress Nutritional Appearance: obese Orientation: alert, awake and oriented x3 HENSD Head: no raccoon eyes General nose exam: external nose normal Eyes Other: no scleral icterus Resp Effort & Inspection: normal respiratory effort, no grunting, not labored and no segmental paradox chest wall movement Auscultation: clear to auscultation bilaterally Cardio Rate: tachycardic Rhythm: regular rhythm Heart Sounds: S1 normal and S2 normal GI Palpation: soft, not firm, no guarding, not rigid and nontender Neuro General: patient alert, patient awake and patient oriented x3 Cognition: normal cognition Speech: speech normal Psych Mental Status: other (appears depressed) Speech and Movement: speech and movement normal Mood: other (appears depressed) Affect: sad Attitude: cooperative Thought Content: normal Insight: insight good Judgment: judgment good Objective Last Vital Signs Temp 96.6 F L 09/24/20 07:30 Pulse 96 H 09/24/20 08:00 Resp 17 09/24/20 08:30 BP 113/65 09/24/20 08:00 Pulse Ox 100 09/24/20 08:30 Laboratory Results - last 24 hr 09/24/20 09/24/20 09/24/20 06:53 06:53 06:53 WBC 1.75 L* RBC 2.37 L Hgb 7.6 L Hct 24.0 L MCV 101.3 H MCH 32.1 MCHC 31.7 L RDW 13.2 Plt Count 165 MPV 10.2 Immature Gran % 0.6 Neutrophils % 68.5 Lymphocytes % 20.6 Monocytes % 5.1 Eosinophils % 4.6 Basophils % 0.6 Nucleated RBC % 0 Absolute Neutrophils 1.20 Absolute Lymphocytes 0.36 L Absolute Monocytes 0.09 L Absolute Eosinophils 0.08 Absolute Basophils 0.01 RBC Morphology See Below Hypochromasia 1+ Macrocytosis 1+ Sodium 145 Potassium 4.0 Chloride 114 H Carbon Dioxide 18.7 L Anion Gap 12.3 H BUN 18 D Creatinine 2.5 H D Estimated GFR/1.73 m2 20.30 Glucose 81 Calcium 8.6 Iron 49 L TIBC 163 L Transferrin % Sat 30 Ferritin 451 H C-Reactive Protein 8.53 H Vitamin B12 Folate 09/24/20 06:53 WBC RBC Hgb Hct MCV MCH MCHC RDW Plt Count MPV Immature Gran % Neutrophils % Lymphocytes % Monocytes % Eosinophils % Basophils % Nucleated RBC % Absolute Neutrophils Absolute Lymphocytes Absolute Monocytes Absolute Eosinophils Absolute Basophils RBC Morphology Hypochromasia Macrocytosis Sodium Potassium Chloride Carbon Dioxide Anion Gap BUN Creatinine Estimated GFR/1.73 m2 Glucose Calcium Iron TIBC Transferrin % Sat Ferritin C-Reactive Protein Vitamin B12 > 2000 H Folate > 20.0 H
[2020-09-24] MEDS: VANCOMYCIN 750 MG in Normal Saline 250 ML 166.667 MG IV (14:55)
--- NOTE | 2020-09-24 16:07 | W.PALPGNOTE ---
Date of service: 09/24/20 Time of Service: 16:07 Assessment and Plan Assessment and plan (1) Septic shock: Status: Resolved (2) Triple negative malignant neoplasm of breast: Status: Chronic (3) Achalasia: Status: Chronic (4) Prerenal acute renal failure: Status: Acute (5) Pneumonitis: Status: Acute (6) Colitis: Status: Acute (7) Esophageal dysphagia: Status: Acute (8) Leucopenia: Status: Acute (9) Palliative care patient: Status: Acute Assessment and plan: Virginia is a very pleasant 49 year old with a past medical history significant for metastatic breast cancer, currently on treatment with Eribulin, s/p C1 on 09/20. She is currently in the ICU being treated for septic shock r/t c-diff colitis, she also has pneumonitis. She has achalasia with aspiration. She has previously had esophageal dilation, she has been seen by general surgery and will follow up with [facility] [place]. She is feeling better but is more tearful today, she wants to go home. She remains a FULL CODE. She would only want mechanical ventilation for a month. We reviewed and completed her health care agent form. She has named her mother, Liudmila Rubio to be her agent. She named her daughter, Genoveva to be her alternative agent. She would also allow her friend, Yesica to help make decisions r/t her healthcare if she is unable to do so. She would not want her ex-, Ming Saldaña to make decisions for her. She will benefit from outpatient follow up with Palliative care in the setting of metastatic breast cancer. Subjective Subjective Interval history since last seen: Virginia was seen in her ICU room with her mom present today. She is tearful today, she wants to go home. She is nauseated and having back pain. She has requested pain medication and an antiemetic from nursing. We reviewed and completed her health care agent form. She has named her mother, Liudmila Rubio to be her agent. She named her daughter, Genoveva to be her alternative agent. She would also allow her friend, Yesica to help make decisions r/t her healthcare if she is unable to do so. She would not want her ex-, Ming Saldaña to make decisions for her. Exam Narrative Exam Narrative: General: very pleasant 49 year old female, laying in bed, awake and able to engage in conversation, appears fatigued, tearful. HEENT: normocephalic, atraumatic, EOMI, mucous membranes moist. Neck: supple, no JVD. Respiratory: respirations appear even and unlabored. GI: soft, nontender on palpation, nondistended, +BS. Extremities: her hands are edematous. Objective Last Vital Signs Temp 35.9 C L 09/24/20 07:30 Pulse 104 H 09/24/20 15:30 Resp 7 L 09/24/20 15:11 BP 132/71 09/24/20 15:11 Pulse Ox 97 09/24/20 15:11 Laboratory Results - last 24 hr 09/24/20 09/24/20 09/24/20 06:53 06:53 06:53 WBC 1.75 L* RBC 2.37 L Hgb 7.6 L Hct 24.0 L MCV 101.3 H MCH 32.1 MCHC 31.7 L RDW 13.2 Plt Count 165 MPV 10.2 Immature Gran % 0.6 Neutrophils % 68.5 Lymphocytes % 20.6 Monocytes % 5.1 Eosinophils % 4.6 Basophils % 0.6 Nucleated RBC % 0 Absolute Neutrophils 1.20 Absolute Lymphocytes 0.36 L Absolute Monocytes 0.09 L Absolute Eosinophils 0.08 Absolute Basophils 0.01 RBC Morphology See Below Hypochromasia 1+ Macrocytosis 1+ Sodium 145 Potassium 4.0 Chloride 114 H Carbon Dioxide 18.7 L Anion Gap 12.3 H BUN 18 D Creatinine 2.5 H D Estimated GFR/1.73 m2 20.30 Glucose 81 Calcium 8.6 Iron 49 L TIBC 163 L Transferrin % Sat 30 Ferritin 451 H C-Reactive Protein 8.53 H Vitamin B12 Folate 09/24/20 06:53 WBC RBC Hgb Hct MCV MCH MCHC RDW Plt Count MPV Immature Gran % Neutrophils % Lymphocytes % Monocytes % Eosinophils % Basophils % Nucleated RBC % Absolute Neutrophils Absolute Lymphocytes Absolute Monocytes Absolute Eosinophils Absolute Basophils RBC Morphology Hypochromasia Macrocytosis Sodium Potassium Chloride Carbon Dioxide Anion Gap BUN Creatinine Estimated GFR/1.73 m2 Glucose Calcium Iron TIBC Transferrin % Sat Ferritin C-Reactive Protein Vitamin B12 > 2000 H Folate > 20.0 H
[2020-09-24] MEDS: HYDROmorphone 2 MG/ML VIAL 0.5 MG IVP ×2 (16:10→20:54)
--- NOTE | 2020-09-24 16:55 | CMPROGNOTE_ITS ---
- If Service Date Differs Date of service: 09/24/20 Time of Service: 16:55 Care Management Progress Note S/O: Per provider note, [place] is tolerating liquids well today and she has no new complaints. She, however, is more depressed and teary and expresses a desire to go home. Virginia was diagnosed with C. diff colitis on admission but she is not having anymore diarrhea. Lab work done today reveals low WBC at 1.75 and low RBC at 2.37. CM will continue to follow. A: Virginia is a 49 year old female admitted to [facility] on 09/22/2020 for acute renal failure. P: Virginia's needs continue to be evaluated. Anticipate she will be discharged home when medically cleared by provider. She will follow up with her PCP, [facility], palliative care, and discharge plan of care as directed. Family will drive her home via private vehicle when ready. CM will continue to follow.
[2020-09-24] MEDS: FAMOTIDINE 20 MG/50 ML BAG 200 MG IVPB (19:09)
[2020-09-24] MEDS: Loperamide 2 MG CAP PO ×2 (19:34→20:32)
[2020-09-24] MEDS: Zolpidem 5 MG TAB PO (20:32)
[2020-09-24] MEDS: Carbidopa 25/Levodopa 100 TAB PO (20:32)
[2020-09-25] VITALS (24 sets, daily range): BP systolic 116–146; BP diastolic 62–81; PULSE 85–144; RESP 3–18; TEMP 35.9–36.9; O2SAT 94–98
[2020-09-25] MEDS: PIPERACILLIN/TAZO 2.25 GM in Normal Saline 50 ML IVPB ×2 (02:35→11:42)
[2020-09-25] MEDS: Levothyroxine 75 MCG TAB 150 MCG PO (05:57)
[2020-09-25] MEDS: Normal Saline Flush 10 ML SYR IVP ×6 (06:21→21:37)
[2020-09-25 06:54] LABS: Abs Immature Grans 0.03 10^3/uL (0.0-0.06); HCT 25.9 % (36.0-46.0); HGB 8.3 g/dL (11.2-15.7); MCH 31.3 pg (27.0-33.0); MCV 97.7 fL (80-95); MPV 10.3 fL (8.0-11.0); Nucleated RBC 0 %; Platelet Count 218 10^3/uL (130-400); RBC 2.65 10^6/uL (3.93-5.22); RDW 12.9 % (11.7-14.6); RDW-SD 45.7 fL
[2020-09-25 07:01] LABS: Anion Gap 14.5 mmol/L (3-11); BUN 12 mg/dL (7-18); CO2 19.5 mmol/L (21.0-32.0); Calcium 8.5 mg/dL (8.5-10.1); Chloride 112 mmol/L (98-107); Estimated GFR 26.27 (mL/min/1.73m2); Glucose 86 mg/dL (74-106); Potassium 3.2 mmol/L (3.5-5.1); Sodium 146 mmol/L (136-145)
[2020-09-25 07:33] LABS: WBC 1.93 10^3/uL (4.4-10.8)
[2020-09-25 07:34] LABS: Absolute Eosinophil Count 0.06 10^3/uL (0.0-0.7); Absolute Lymphocyte Count 0.46 10^3/uL (1.2-3.4); Absolute Monocyte Count 0.08 10^3/uL (0.1-0.8); Absolute Neutrophil Count 1.31 10^3/uL (1.2-6.7); Atypical Lymphocytes % 3
[2020-09-25 07:35] LABS: Diff Comment Manual Differential; Macrocytosis 1+; Other Cells % 1
[2020-09-25] MEDS: metroNIDAZOLE 500 MG/100 ML BAG 100 MG IVPB ×2 (09:36→16:52)
[2020-09-25] MEDS: Normal Saline 1,000 ML 100 ML IV (09:37)
[2020-09-25] MEDS: HYDROmorphone 2 MG/ML VIAL 0.5 MG IVP ×3 (09:41→21:37)
[2020-09-25] MEDS: Folic Acid 1 MG TAB PO (09:46)
[2020-09-25] MEDS: Heparin 5,000 UNITS/ML VIAL 5000 UNITS SC ×2 (09:47→16:52)
[2020-09-25] MEDS: Loperamide 2 MG CAP PO (10:06)
--- NOTE | 2020-09-25 10:22 | W.PM.PROGNOT ---
Date of Service Date of service: 09/25/20 Time of Service: 10:22 Assessment and Plan Assessment and plan (1) Palliative care patient: Status: Acute Assessment and plan: Palliative has evaluated; appreciate consult (2) Achalasia: Status: Chronic Assessment and plan: Planning outpt dilation / f/u with [facility]. Diet as tolerated. (3) Restless leg syndrome: Status: Acute Assessment and plan: Cont Sinamet. (4) Depression: Status: Chronic Assessment and plan: Cont Viibryd. Situational componenet; breast cancer with concerns regarding her children (5) Prerenal acute renal failure: Status: Acute Assessment and plan: Creatinine has improved further to 2.0 Stop IV fluids; starting to have soft tissue nonpitting edema. Oral intake. (6) Colitis: Status: Acute Assessment and plan: Po vancomycin and IV Flagyl. Stool amount is decreasing. (7) Pneumonia: Status: Acute Assessment and plan: Noted on CT chest. Clinically with only an occasional cough. On Zosyn and Vanc. Stop and finish abx course with Augmentin. Subjective Subjective Patient reports: feels better, tolerating liquids well (Poor appetite), diarrhea and afebrile; denies nausea, vomiting and shortness of breath Exam Const General: cooperative and no acute distress Nutritional Appearance: overweight Orientation: alert and oriented x3 Eyes General: appearance normal, both eyes and all related structures Sclera: sclerae normal Neck Neck: full ROM and no JVD Resp Effort & Inspection: normal respiratory effort Auscultation: clear to auscultation bilaterally Cardio Rate: tachycardic Rhythm: regular rhythm Heart Sounds: S1 normal and S2 normal GI Palpation: soft and nontender Auscultation: normal bowel sounds Neuro General: no focal motor deficits Cognition: normal cognition Speech: speech normal Extrem General: no calf tenderness and edema Laterality: bilateral (Hands/ nonpitting.) Objective Last Vital Signs Temp 36.0 C L 09/25/20 09:43 Pulse 97 H 09/25/20 09:32 Resp 18 09/25/20 09:32 BP 129/75 09/25/20 09:32 Pulse Ox 94 09/25/20 09:32 Laboratory Results - last 24 hr 09/25/20 09/25/20 06:30 06:30 WBC 1.93 L* RBC 2.65 L Hgb 8.3 L Hct 25.9 L MCV 97.7 H D MCH 31.3 MCHC 32.0 RDW 12.9 Plt Count 218 MPV 10.3 Immature Gran % 0.0 Neutrophils % 68.0 Lymphocytes % 21.0 Atypical Lymphs % 3 Monocytes % 4.0 Eosinophils % 3.0 Basophils % 0.0 Other Cells % 1 Nucleated RBC % 0 Absolute Neutrophils 1.31 Absolute Lymphocytes 0.46 L Absolute Monocytes 0.08 L Absolute Eosinophils 0.06 Absolute Basophils 0.00 RBC Morphology See Below Macrocytosis 1+ Sodium 146 H Potassium 3.2 L Chloride 112 H Carbon Dioxide 19.5 L Anion Gap 14.5 H BUN 12 D Creatinine 2.0 H Estimated GFR/1.73 m2 26.27 Glucose 86 Calcium 8.5
[2020-09-25] MEDS: POTASSIUM CHLORIDE 10 MEQ/100 ML BAG 100 MEQ IVPB ×2 (10:37→12:39)
--- NOTE | 2020-09-25 14:49 | CMPROGNOTE_ITS ---
- If Service Date Differs Date of service: 09/25/20 Time of Service: 14:49 Care Management Progress Note S/O: Virginia is laying in bed when CM comes to meet with her. She is pleasant and easily engages in conversation. [place] reports that she is feeling better today and is looking forward to returning home. 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 She reports being at that job for many years and states she really enjoys the work. She also shares that continuing to work allows her to keep her mind off of the cancer. CM will continue to follow. A: Virginia is a 49 year old female admitted to [facility] on 09/22/2020 for acute renal failure. P: Virginia's needs continue to be evaluated. Anticipate she will be discharged home when medically cleared by provider. She will follow up with her PCP, [facility], palliative care, and discharge plan of care as directed. Family will drive her home via private vehicle when ready. CM will continue to follow.
[2020-09-25] MEDS: HYDROcodone 10/Acetaminophen 325 TAB PO (16:39)
[2020-09-25] MEDS: Ondansetron 4 MG/2 ML VIAL IVP (16:51)
--- NOTE | 2020-09-25 20:11 | NUR.NOTE ---
Virginia transferred via WC from ICU to MS room 230 @ 16:15. Report from Penny Mccrary. On precautions for C-diff. A+Ox3. Generalized weakness w/ chronic leg/back pain. Acute pain from METS breast cancer. Nilda stack upon arrival. Pain addressed. Right Port. Flushed and patent. MOP present with [place].
[2020-09-25] MEDS: Zolpidem 5 MG TAB PO (21:37)
[2020-09-25] MEDS: Carbidopa 25/Levodopa 100 TAB PO (21:37)
[2020-09-25] MEDS: Amoxicillin 875/Clav. 125 TAB PO (21:37)
[2020-09-25] MEDS: FAMOTIDINE 20 MG/50 ML BAG 200 MG IVPB (21:38)
[2020-09-26] VITALS (10 sets, daily range): BP systolic 119–136; BP diastolic 72–82; PULSE 76–105; RESP 17–20; TEMP 36.1–36.9; O2SAT 94–99
[2020-09-26] MEDS: HYDROcodone 10/Acetaminophen 325 TAB PO ×2 (00:18→09:17)
[2020-09-26] MEDS: Ondansetron 4 MG/2 ML VIAL IVP ×3 (06:37→19:21)
[2020-09-26] MEDS: Levothyroxine 75 MCG TAB 150 MCG PO (06:37)
[2020-09-26] MEDS: Normal Saline Flush 10 ML SYR IVP ×3 (08:55→23:13)
[2020-09-26] MEDS: Heparin 5,000 UNITS/ML VIAL 5000 UNITS SC ×3 (08:57→16:37)
[2020-09-26] MEDS: metroNIDAZOLE 500 MG/100 ML BAG 100 MG IVPB ×3 (09:15→16:38)
[2020-09-26] MEDS: Amoxicillin 875/Clav. 125 TAB PO (09:18)
[2020-09-26] MEDS: Folic Acid 1 MG TAB PO (09:19)
[2020-09-26] MEDS: Ketorolac 15 MG/ML VIAL IVP (10:29)
--- NOTE | 2020-09-26 11:34 | IN_ITS ---
Date of service: 09/26/20 Time of Service: 11:34 PT Notes Visit Reasons: ACUTE RENAL FAILURE Physical Therapy Inpatient Initial Evaluation Date: 09/26/2020 Referring Doctor: Andrew oLmax MD PT Orders: PT CONSULT: Eval/treat. Precautions: C. Difficile precautions. Activity as tolerated. Patient Profile/Admitting Diagnosis: Angeline is a 49-year-old female with breast cancer, depression, and restless leg syndrome who presented to the ED on 09/22/2020 with shortness of breath, cough body malaise, headache, and chills. Patient is diagnosed with renal failure, achalasia, back Pain, and hypothyroidism. PMHX: Unremarkable Social History/Home Situation: Lives with daughter in a private home with 4 steps to enter with bilateral rails. Independent with all aspects of ADLs prior to admission. 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 Equipment Owned/DME: None Subjective: Agreeable to PT consult the second attempt. Initially requested to be seen later in the morning as she was feeling sick to her stomach. Still feels fatigued and generally unwell after ambulation activity with PT. Denies headache, chest pain, back pain. Reports that she does not feel entirely back to baseline in terms of strength and activity tolerance. Objective: General Observation: Telemetry monitoring in place. Central line in place. Bilateral upper extremity edema with the right more affected than the left. Mental Status: Alert and oriented as to person, place, time, and purpose. Able to pay attention, focus, and respond appropriately. Pain: 0/10 ROM: Right Upper Extremity: Shoulder Flexion WFL. Shoulder abduction WFL. Shoulder ER/IR WFL. Elbow flexion WFL. Forearm pronation/supination WFL. Wrist flexion WFL. Opening and closing of hand WFL. Left Upper Extremity: Shoulder Flexion WFL. Shoulder abduction WFL. Shoulder ER/IR WFL. Elbow flexion WFL. Forearm pronation/supination WFL. Wrist flexion WFL. Opening and closing of hand WFL. Right Lower Extremity: Hip flexion WFL. Hip abduction WFL. Hip ER/IR WFL. Knee flexion WFL. Knee extension. Ankle dorsiflexion/eversion WFL. Ankle plantarflexion/inversion WFL. Left Lower Extremity: Hip flexion WFL. Hip abduction WFL. Hip ER/IR WFL. Knee flexion WFL. Knee extension. Ankle dorsiflexion WFL. Ankle plantarflexion WFL. Strength: Right Upper Extremity: Shoulder flexors 4/5. Shoulder abductors 4/5. Shoulder ER 4/5. Shoulder IR 4/5. Forearm pronators 4/5. Forearm supinators 4/5. Elbow fl exors 5/5. Elbow extensors 5/5. Reflow Operator strong. Left Upper Extremity: Shoulder flexors 4/5. Shoulder abductors 4/5. Shoulder ER 4/5. Shoulder IR 4/5. Forearm pronators 4/5. Forearm supinators 4/5. Elbow flexors 5/5. Elbow extensors 5/5. Reflow Operator strong. Right Lower Extremity: Hip flexors 4/5. Hip abductors 4/5. Hip external rotators 4/5. Hip internal rotators 4/5. Knee flexors 4/5. Knee extensors 4/5. Ankle dorsiflexors/evertors 5/5. Ankle plantarflexors/invertors 5/5. Left Lower Extremity: Hip flexors 4/5. Hip abductors 4/5. Hip external rotators 4/5. Hip internal rotators 4/5. Knee flexors 4/5. Knee extensors 4/5. Ankle dorsiflexors/evertors 5/5. Ankle plantarflexors/invertors 5/5. Bed Mobility/Transfers: Rolling independent Supine to sit independent Sit to supine independent Sit to stand independent Stand to sit independent Bed to chair independent Chair to bed independent Gait: Distance of 250 feet requiring standby assist. Kelsey decreased. Balance: Static Sitting: Normal Dynamic Sitting: Normal Static Standing: Normal Dynamic Standing: Good Special Tests: Mobility Limitations Standardized Measure [facility] 6 clicks Basic Mobility Inpatient Short Form: Raw Score: 23 CMS Score: 11% deficit Informed Consent/Education: Patient was instructed in purpose of PT consult and plan of care. Agreeable to proceed with established PT POC to achieve personal goals. Assessment: Patient presents with clinical signs and symptoms consistent with current/admitting diagnoses that have resulted to mobility limitations, gait instability, generalized weakness, and impairment of motor control as demonstrated by the following impairment level findings: 1. Decreased strength to B shoulders and hips major muscle groups 2. Impaired activity tolerance 3. Swelling of bilateral upper extremities Impairments are contributing to the following functional limitations: 1. Inability to safely ambulate independently 2. Inability to negotiate steps alone safely Patient is [place] a 25456 low complexity based on the following: History: 49-year-old female with past medical history as indicated above Examination: Demonstrable impairment in strength, balance, and mobility level with underlying impairments and functional limitations as exhibited above as well as deficit score of 11% utilizing the [facility] Mobility Inpatient Short Form Presentation: Stable Decision Makin Low Complexity Goals: Goals X 3 days 1. Independent gait on level surface with use of no assistive device 1000 for at least feet without report of pain nor dyspnea 2. Independent stair negotiation while holding onto B rails for at least 5 steps without report of pain nor dyspnea 3. Independent with home exercise program 4. Normal static and dynamic standing balance/tolerance Plan of Care/Treatment Plan: 1-2x/day, 7 days/week x 1 week. Plan of care has been reviewed with the INSTRUCTIONAL ASSISTANT providing the service under Physical Therapy direction. Initiate Physical Therapy intervention for pain management as needed, strengthening, bed mobility, transfers, gait, stairs, balance training, and use of assistive device. DISCHARGE RECOMMENDATIONS: Home when medically cleared by hospitalist. No equipment needs at this time. TREATMENT CODE/TIME: 95451 x 21 minutes beginning at 11:34 AM. Thank you for the opportunity to participate in the care of this patient. Carmen Hitchcock PT, DPT, CLT [facility] [place], [place]
[2020-09-26 13:53] LABS: Anion Gap 10.7 mmol/L (3-11); BUN 8 mg/dL (7-18); CO2 21.3 mmol/L (21.0-32.0); CREATININE 1.8 mg/dL (0.55-1.02); Calcium 8.4 mg/dL (8.5-10.1); Chloride 113 mmol/L (98-107); Estimated GFR 29.66 (mL/min/1.73m2); Glucose 93 mg/dL (74-106); Potassium 3.2 mmol/L (3.5-5.1); Sodium 145 mmol/L (136-145)
--- NOTE | 2020-09-26 14:17 | PT.INTREAT ---
Date of service: 09/26/20 Time of Service: 13:50 PT Notes Visit Reasons: ACUTE RENAL FAILURE Inpatient Physical Therapy Treatment Note [facility] Date: 09/26/2020 PRECAUTIONS: Activity as tolerated, contact SUBJECTIVE: Virginia states that she is not feeling well. She reports that she is nauseous and has a migraine and is not sure that she feels ready to discharge to home today. She feels that she is somewhat weaker than her baseline, but attributes that to her lack of appetite and nausea. OBJECTIVE: PAIN: No c/o pain BED MOBILITY/TRANSFERS Rolling L/R: I Supine-sit: I Sit-supine: I Sit-stand: I Stand-sit: I Bed-Chair: I Chair-bed: I GAIT Assistive Device: No AD Weight bearing: Full Assist: S Distance: 100' x2 Deviation: Gait unremarkable STAIRS: Up/down 3x4 and 2x6 using B rails and a step-over pattern independently ASSESSMENT: Patient tolerated session well, although with complaints of nausea and headache. She demonstrates independence with bed mobility, transfers, and stair negotiation at this time. PLAN: Continue with gait training and global strengthening TREATMENT CODE/TIME: 15 minutes; 95107 (13:50)
--- NOTE | 2020-09-26 15:49 | PGE_ITS ---
Date of Service Date of service: 09/26/20 Time of Service: 15:49 Assessment and Plan Assessment and plan (1) Achalasia: Status: Chronic Assessment and plan: Will sched appt with [facility] for dilation at time of dc. (2) Depression: Status: Chronic Assessment and plan: Cont Viibryd (3) Prerenal acute renal failure: Status: Acute Assessment and plan: Improved with IV hydration. Now managing with po intake only. Creatinine improved to 1.8. Monitor. (4) Colitis: Status: Acute Assessment and plan: C.Difficile Cont oral vancomycin and IV Flagyl. Plan 10 day course of Vanc. (5) Pneumonia: Status: Acute Assessment and plan: Changed to Augmentin 875mg po BID yesterday; cannot swallow the pill easily even if scored in 1/2. Change to Augmentin ES 600 suspension BID. (6) Appetite impaired: Status: Acute Assessment and plan: Initiate Marinol 2.5mg BID Subjective Subjective Patient reports: afebrile; denies shortness of breath Interval history since last seen: + migraine PRESTON this AM. Appetite still poor. Her stool frequency has slowed further. Exam Const General: cooperative and ill appearing Nutritional Appearance: obese Orientation: alert and oriented x3 Resp Effort & Inspection: normal respiratory effort Auscultation: clear to auscultation bilaterally Cardio Rate: regular rate Rhythm: regular rhythm Heart Sounds: S1 normal and S2 normal GI Palpation: soft and nontender Skin General skin exam: no rashes or lesions noted Neuro General: no focal motor deficits Cognition: normal cognition Speech: speech normal Extrem General: no pedal edema and no calf tenderness Objective Last Vital Signs Temp 36.1 C L 09/26/20 12:27 Pulse 82 09/26/20 15:26 Resp 20 09/26/20 12:27 BP 119/74 09/26/20 12:27 Pulse Ox 94 09/26/20 12:27 Laboratory Results - last 24 hr 09/23/20 09/25/20 09/26/20 09:00 06:30 06:30 Sodium 145 Potassium 3.2 L Chloride 113 H Carbon Dioxide 21.3 Anion Gap 10.7 BUN 8 Creatinine 1.8 H Estimated GFR/1.73 m2 29.66 Glucose 93 Calcium 8.4 L Stool Campylobacter PCR Negative Stool Salmonella PCR Negative Stool Shigella PCR Negative Shiga Toxin (PCR) Negative Path Cons Comment
[2020-09-26] MEDS: Dronabinol 2.5 MG CAP PO (16:37)
[2020-09-26] MEDS: POTASSIUM CHLORIDE 10 MEQ/100 ML BAG 100 MEQ IVPB ×2 (16:38→17:51)
--- NOTE | 2020-09-26 17:40 | CMPROGNOTE_ITS ---
- If Service Date Differs Date of service: 09/26/20 Time of Service: 17:40 Care Management Progress Note S/O: Virginia continues to be monitored at M/S level of care. Her renal failure improved with IV hydration, and she is currently managing with PO intake only. Her MD recommends a 10 day course of vanco. CM attempted to visit with her many times today, but she was busy with nursing several times, so CM did not visit today. CM will continue to follow. A: Virginia is a 49 year old female admitted to [facility] on 09/22/2020 for acute renal failure. P: Virginia's needs continue to be evaluated. Anticipate she will be discharged home when medically cleared by provider. She will follow up with her PCP, [facility], palliative care, and discharge plan of care as directed. Family will drive her home via private vehicle when ready. CM will continue to follow.
[2020-09-26] MEDS: FAMOTIDINE 20 MG/50 ML BAG 200 MG IVPB (19:20)
[2020-09-26] MEDS: Amoxicillin 600 MG/Clav. 42.9 MG 75 ML BTL PO (19:22)
[2020-09-26] MEDS: Cyclobenzaprine 10 MG TAB PO ×2 (21:55)
[2020-09-26] MEDS: Zolpidem 5 MG TAB PO (21:55)
[2020-09-26] MEDS: Carbidopa 25/Levodopa 100 TAB PO (21:56)
[2020-09-26] MEDS: HYDROmorphone 2 MG/ML VIAL 0.5 MG IVP (23:12)
[2020-09-27] VITALS (10 sets, daily range): BP systolic 123–149; BP diastolic 77–92; PULSE 74–95; RESP 14–18; TEMP 36–36.7; O2SAT 95–100
[2020-09-27] MEDS: Normal Saline 500 ML IV (00:45)
[2020-09-27] MEDS: metroNIDAZOLE 500 MG/100 ML BAG 100 MG IVPB ×3 (00:53→17:03)
[2020-09-27] MEDS: Normal Saline Flush 10 ML SYR IVP ×7 (00:53→19:54)
[2020-09-27] MEDS: Heparin 5,000 UNITS/ML VIAL 5000 UNITS SC ×3 (00:53→17:03)
[2020-09-27] MEDS: HYDROcodone 10/Acetaminophen 325 TAB PO ×2 (01:09→20:36)
[2020-09-27] MEDS: Levothyroxine 75 MCG TAB 150 MCG PO (05:19)
[2020-09-27 06:34] LABS: Abs Immature Grans 0.05 10^3/uL (0.0-0.06); Absolute Basophil Count 0.04 10^3/uL (0.0-0.2); Absolute Eosinophil Count 0.02 10^3/uL (0.0-0.7); Absolute Lymphocyte Count 0.68 10^3/uL (1.2-3.4); Absolute Neutrophil Count 0.79 10^3/uL (1.2-6.7); Basophils % 2.4; Eosinophils % 1.2; HCT 23.6 % (36.0-46.0); HGB 7.5 g/dL (11.2-15.7); Lymphocytes % 40.5; MCH 30.6 pg (27.0-33.0); MCHC 31.8 % (32.0-36.0); MCV 96.3 fL (80-95); MPV 10.3 fL (8.0-11.0); Neutrophils % 46.9; Nucleated RBC 0 %; RBC 2.45 10^6/uL (3.93-5.22); RDW 12.9 % (11.7-14.6); RDW-SD 45.6 fL
[2020-09-27 06:44] LABS: Anion Gap 9.7 mmol/L (3-11); BUN 6 mg/dL (7-18); CO2 23.3 mmol/L (21.0-32.0); CREATININE 1.7 mg/dL (0.55-1.02); Calcium 8.1 mg/dL (8.5-10.1); Chloride 113 mmol/L (98-107); Estimated GFR 31.69 (mL/min/1.73m2); Glucose 94 mg/dL (74-106); Potassium 3.1 mmol/L (3.5-5.1); Sodium 146 mmol/L (136-145)
[2020-09-27 07:29] LABS: Diff Comment Agrees w/ Instrument; Platelet Count 269 10^3/uL (130-400); RBC Morphology Normal; WBC 1.68 10^3/uL (4.4-10.8)
[2020-09-27] MEDS: HYDROmorphone 2 MG/ML VIAL 0.5 MG IVP ×2 (08:00→18:34)
[2020-09-27] MEDS: Ondansetron 4 MG/2 ML VIAL IVP ×3 (08:01→19:52)
[2020-09-27] MEDS: Folic Acid 1 MG TAB PO (08:28)
[2020-09-27] MEDS: Amoxicillin 600 MG/Clav. 42.9 MG 75 ML BTL PO ×2 (08:28→19:53)
[2020-09-27] MEDS: POTASSIUM CHLORIDE 10 MEQ/100 ML BAG 100 MEQ IVPB ×3 (09:32→12:11)
[2020-09-27] MEDS: Ketorolac 15 MG/ML VIAL IVP (11:14)
[2020-09-27] MEDS: Metoclopramide 10 MG TAB PO (11:15)
[2020-09-27] MEDS: Acetaminophen 500 MG TAB PO (14:23)
--- NOTE | 2020-09-27 14:59 | W.PM.PROGNOT ---
Date of Service Date of service: 09/27/20 Time of Service: 15:00 Assessment and Plan Assessment and plan (1) Appetite impaired: Status: Acute Assessment and plan: Stop marinol d/t patient not liking the way she felt when taking it Encourage intake. (2) Achalasia: Status: Chronic Assessment and plan: Will need to f/u at [facility] after d/c for dilation. Appetite is poor so is taking in mostly liquids. (3) Restless leg syndrome: Status: Acute Assessment and plan: Cont Sinemet (4) Prerenal acute renal failure: Status: Acute Assessment and plan: Much improved with hydration. Cr now 1.7. Poor appetite and achalasia are contributing factors (5) Pneumonitis: Status: Acute Assessment and plan: Now on oral Augmentin ES600. Clinically w/o any significant sequelae of a pneumonia. Leukopenia and neutropenia d/t chemotherapy. (6) Colitis: Status: Acute Assessment and plan: D/T C. Difficile. Cont oral vancomycin for 10 day course. (7) Breast cancer: Status: Chronic Assessment and plan: Last round of chemotx was 2 weeks ago; was due today but because of infections and low blood counts this round will be delayed. (8) Anemia: Status: Chronic Assessment and plan: Secondary to chemotx. Hgb 7.5 today. Transfused one unit of irradiated blood today. CBC in AM (9) Hypokalemia: Status: Acute Assessment and plan: IV replacement. Monitor. Subjective Subjective Patient reports: diarrhea (stool frequency decreased), nausea (mild) and afebrile; denies vomiting Interval history since last seen: Pt had a mild PRESTON this AM that she felt could become a migraine. Appetite still poor She did not like the way the marinol made her feel. Exam Const General: cooperative and no acute distress Nutritional Appearance: obese Orientation: alert and oriented x3 Resp Effort & Inspection: normal respiratory effort Auscultation: clear to auscultation bilaterally Cardio Rate: regular rate Rhythm: regular rhythm Heart Sounds: S1 normal and S2 normal GI Palpation: soft and nontender Extrem General: no pedal edema and no calf tenderness Objective Last Vital Signs Temp 36.3 C L 09/27/20 14:41 Pulse 86 09/27/20 14:41 Resp 18 09/27/20 14:41 BP 136/83 09/27/20 14:41 Pulse Ox 96 09/27/20 14:41 Laboratory Results - last 24 hr 09/27/20 09/27/20 09/27/20 05:30 05:30 11:41 WBC 1.68 L* RBC 2.45 L Hgb 7.5 L Hct 23.6 L MCV 96.3 H MCH 30.6 MCHC 31.8 L RDW 12.9 Plt Count 269 MPV 10.3 Immature Gran % 3.0 Neutrophils % 46.9 Lymphocytes % 40.5 Monocytes % 6.0 Eosinophils % 1.2 Basophils % 2.4 Nucleated RBC % 0 Absolute Neutrophils 0.79 L Absolute Lymphocytes 0.68 L Absolute Monocytes 0.10 Absolute Eosinophils 0.02 Absolute Basophils 0.04 RBC Morphology Normal Sodium 146 H Potassium 3.1 L Chloride 113 H Carbon Dioxide 23.3 Anion Gap 9.7 BUN 6 L Creatinine 1.7 H Estimated GFR/1.73 m2 31.69 Glucose 94 Calcium 8.1 L Patient ABO/Rh AB Positive Antibody Screen NEGATIVE Crossmatch See Detail
[2020-09-27] MEDS: Cyclobenzaprine 10 MG TAB PO (15:30)
--- NOTE | 2020-09-27 17:16 | PT.INDS ---
Date of service: 09/27/20 Time of Service: 17:16 PT Notes Visit Reasons: Acute Renal Failure Physical Therapy Inpatient Discharge Summary Date: 09/27/2020 Date of service: 09/27/2019 (09/27/2020 This is a clinical summary of care provided for the duration of dates listed above. No charge was made in the completion of this documentation. Referring Doctor: Andrew Lomax MD PT Orders: PT CONSULT: Eval/treat. Precautions: C. Difficile precautions. Activity as tolerated. Patient Profile/Admitting Diagnosis: Angeline is a 49-year-old female with breast cancer, depression, and restless leg syndrome who presented to the ED on 09/22/2020 with shortness of breath, cough body malaise, headache, and chills. Patient is diagnosed with renal failure, achalasia, back Pain, and hypothyroidism. PMHX: Unremarkable Social History/Home Situation: Lives with daughter in a private home with 4 steps to enter with bilateral rails. Independent with all aspects of ADLs prior to admission. 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 Equipment Owned/DME: None Subjective: NT. See most recent FIRE DEPARTMENT MARINE ENGINEER notes. Objective: General Observation: NT. See most recent FIRE DEPARTMENT MARINE ENGINEER notes. Mental Status: NT. See most recent FIRE DEPARTMENT MARINE ENGINEER notes. Pain: NT. See most recent FIRE DEPARTMENT MARINE ENGINEER notes. ROM: Right Upper Extremity: Shoulder Flexion WFL. Shoulder abduction WFL. Shoulder ER/IR WFL. Elbow flexion WFL. Forearm pronation/supination WFL. Wrist flexion WFL. Opening and closing of hand WFL. Left Upper Extremity: Shoulder Flexion WFL. Shoulder abduction WFL. Shoulder ER/IR WFL. Elbow flexion WFL. Forearm pronation/supination WFL. Wrist flexion WFL. Opening and closing of hand WFL. Right Lower Extremity: Hip flexion WFL. Hip abduction WFL. Hip ER/IR WFL. Knee flexion WFL. Knee extension. Ankle dorsiflexion/eversion WFL. Ankle plantarflexion/inversion WFL. Left Lower Extremity: Hip flexion WFL. Hip abduction WFL. Hip ER/IR WFL. Knee flexion WFL. Knee extension. Ankle dorsiflexion WFL. Ankle plantarflexion WFL. Strength: Right Upper Extremity: Shoulder flexors 4/5. Shoulder abductors 4/5. Shoulder ER 4/5. Shoulder IR 4/5. Forearm pronators 4/5. Forearm supinators 4/5. Elbow flexors 5/5. Elbow extensors 5/5. Behavior Interventionist strong. Left Upper Extremity: Shoulder flexors 4/5. Shoulder abductors 4/5. Shoulder ER 4/5. Shoulder IR 4/5. Forearm pronators 4/5. Forearm supinators 4/5. Elbow flexors 5/5. Elbow extensors 5/5. Behavior Interventionist strong. Right Lower Extremity: Hip flexors 4/5. Hip abductors 4/5. Hip external rotators 4/5. Hip internal rotators 4/5. Knee flexors 4/5. Knee extensors 4/5. Ankle dorsiflexors/evertors 5/5. Ankle plantarflexors/invertors 5/5. Left Lower Extremity: Hip flexors 4/5. Hip abductors 4/5. Hip external rotators 4/5. Hip internal rotators 4/5. Knee flexors 4/5. Knee extensors 4/5. Ankle dorsiflexors/evertors 5/5. Ankle plantarflexors/invertors 5/5. Bed Mobility/Transfers: Rolling independent Supine to sit independent Sit to supine independent Sit to stand independent Stand to sit independent Bed to chair independent Chair to bed independent Gait: Indepedent in-room ambulation with no AD. Balance: Static Sitting: Normal Dynamic Sitting: Normal Static Standing: Normal Dynamic Standing: Normal Assessment: Patient is made independent in side her room without the need for an assistive device. Patient is confident about being discontinued from therapy as she states that she is now at her baseline mobility level. She has been given room exercises that she can do on her own. Goals: Goals X 3 days 1. Independent gait on level surface with use of no assistive device 1000 for at least feet without report of pain nor dyspnea NOT MET. N/A. Patient is on C.Diff precautions. 2. Independent stair negotiation while holding onto B rails for at least 5 steps without report of pain nor dyspnea. NOT MET. N/A. Patient is on C.Diff precautions. 3. Independent with home exercise program MET 4. Normal static and dynamic standing balance/tolerance MET DISCHARGE RECOMMENDATIONS: Home when medically cleared by hospitalist. No equipment needs at this time. TREATMENT CODE/TIME: [place] Thank you for the opportunity to participate in the care of this patient. Carmen Hitchcock PT, DPT, CLT [facility] [place], [place]
--- NOTE | 2020-09-27 17:24 | PDOC.CMPRO ---
- If Service Date Differs Date of service: 09/27/20 Time of Service: 17:24 Care Management Progress Note S/O: Virginia was lying in bed when CM met with her. She reported that she has been feeling better than when she arrived, and is hoping to discharge home soon. She will receive a unit of blood today, per report, and have repeat labs in the morning. She continues to have a poor appetite, but the Marinol was discontinued because she did not like the way it made her feel. CM will continue to follow. A: Virgiina is a 49 year old female admitted to [facility] on 09/22/2020 for acute renal failure. P: Virginia's needs continue to be evaluated. Anticipate she will be discharged home when medically cleared by provider. She will follow up with her PCP, [facility], palliative care, and discharge plan of care as directed. Family will drive her home via private vehicle when ready. CM will continue to follow.
[2020-09-27] MEDS: LORazepam 1 MG TAB PO (18:03)
[2020-09-27] MEDS: FAMOTIDINE 20 MG/50 ML BAG 200 MG IVPB (19:51)
[2020-09-27] MEDS: Carbidopa 25/Levodopa 100 TAB PO (20:36)
[2020-09-27] MEDS: Zolpidem 5 MG TAB PO (20:37)
[2020-09-28 00:01] VITALS: BP 148/68; PULSE 94; RESP 17; TEMP 36.7; O2SAT 98
[2020-09-28] MEDS: Heparin 5,000 UNITS/ML VIAL 5000 UNITS SC ×2 (00:07→07:36)
[2020-09-28] MEDS: Normal Saline Flush 10 ML SYR IVP ×5 (00:08→10:04)
[2020-09-28] MEDS: metroNIDAZOLE 500 MG/100 ML BAG 100 MG IVPB ×2 (00:08→07:36)
[2020-09-28] MEDS: Ondansetron 4 MG/2 ML VIAL IVP (05:52)
[2020-09-28 07:35] VITALS: BP 148/84; PULSE 81; RESP 17; TEMP 36.5; O2SAT 96
[2020-09-28 07:46] LABS: Anion Gap 11.3 mmol/L (3-11); BUN 7 mg/dL (7-18); CO2 20.7 mmol/L (21.0-32.0); CREATININE 1.8 mg/dL (0.55-1.02); Calcium 8.1 mg/dL (8.5-10.1); Chloride 112 mmol/L (98-107); Estimated GFR 29.66 (mL/min/1.73m2); Glucose 98 mg/dL (74-106); Potassium 3.2 mmol/L (3.5-5.1); Sodium 144 mmol/L (136-145)
[2020-09-28] MEDS: Metoclopramide 10 MG/2 ML VIAL IVP (08:16)
[2020-09-28] MEDS: Lactated Ringers 500 ML IV (08:16)
[2020-09-28 09:08] LABS: Abs Immature Grans 0.05 10^3/uL (0.0-0.06); Absolute Basophil Count 0.03 10^3/uL (0.0-0.2); Absolute Eosinophil Count 0.01 10^3/uL (0.0-0.7); Absolute Lymphocyte Count 0.65 10^3/uL (1.2-3.4); Absolute Monocyte Count 0.22 10^3/uL (0.1-0.8); Absolute Neutrophil Count 1.29 10^3/uL (1.2-6.7); Basophils % 1.3; Eosinophils % 0.4; HCT 27.4 % (36.0-46.0); HGB 9.2 g/dL (11.2-15.7); Immature Grans % 2.2; Lymphocytes % 28.9; MCH 30.8 pg (27.0-33.0); MCHC 33.6 % (32.0-36.0); MCV 91.6 fL (80-95); MPV 10.9 fL (8.0-11.0); Monocytes % 9.8; Neutrophils % 57.4; Nucleated RBC 0 %; Platelet Count 301 10^3/uL (130-400); RBC 2.99 10^6/uL (3.93-5.22); RDW 14.4 % (11.7-14.6); RDW-SD 48.7 fL; WBC 2.25 10^3/uL (4.4-10.8)
[2020-09-28] MEDS: Folic Acid 1 MG TAB PO (09:41)
[2020-09-28] MEDS: Amoxicillin 600 MG/Clav. 42.9 MG 75 ML BTL PO (09:42)
[2020-09-28] MEDS: HYDROmorphone 2 MG/ML VIAL 0.5 MG IVP (10:03)
--- NOTE | 2020-09-28 10:13 | W.PM.DS.N ---
Date of service: 09/28/20 Time of Service: 10:14 DS: Diagnosis Discharge Diagnosis (1) Appetite impaired: Status: Acute (2) Achalasia: Status: Chronic (3) Restless leg syndrome: Status: Acute (4) Prerenal acute renal failure: Status: Acute (5) Pneumonitis: Status: Acute (6) Colitis: Status: Acute (7) Breast cancer: Status: Chronic (8) Anemia: Status: Chronic (9) Hypokalemia: Status: Acute Discharge Plan Disposition Patient Disposition: HOME Condition: Fair Discharge Details Reason For Visit: Acute Renal Failure Admit Date/Time: 09/22/20 22:34 Admit Provider: Andrew Lomax Attending Provider: Andrew Lomax Primary Care Provider: Amy Hicks Hospital Course Hospital Course: This is a 49 yo female with a PMH of breast cancer / tx started in 03/2020, GERD, acalasia, RLS, hypothyroidism, depression. She was referred to the emergency department from the cancer center for evaluation of complaints of malaise, headache, shortness of breath, cough and chills. She has had poor p.o. intake due to her symptoms in addition to a sore throat, thought to be thrush. She has no documented fever but states she has had felt fevers with chills and sweats. she states she has been declining over past several days with symptoms starting on Saturday. She is on chemo every 2 weeks. She endorses that she is due for esophageal dilitation but hasn't been able to schedule it d/t her breast cancer and treatment. Her WBC count was 2.46. Hgb 9.2. Platelets 189. Normal electrolytes. BUN 36. Creatinine 5.6 (1.3 on 09/06/2020). LFTs normal. Troponin normal. Procalcitonin normal. COVID [address] head negative for acute findings. CT chest/abd/pelvis:1. Right upper lobe pneumonitis. Vague lower lobe infiltrates. 2. 3 centimeter right axillary lymph node versus seroma. 3. Dilated thickened esophagus. Fluid could indicate reflux. 4. Diffuse colitis. IV hydration initiated. Initial BP 76/36. Temp 36.1 - 36.8. IV hydration initiated with NS bolus of 1L. Levophed drip then initiated. EKG showed a HR of 95. Inverted T-waves in lead III. Zosyn and Vancomycin initiated in the ED. Admitted to the ICU for further fluid administration and Levophed. PO vancomycin initiated for colitis. She was weaned readily from pressor for her BP afer fluid resuscitation. Her creatinine improved to the 1.7 and 1.8 range. Her oral intake was initially tenuous d/t achalasia and anorexia. Marinol was attempted but she had a side effect of feeling altered. Nutrition consulted. She had little clinical signs/symptoms of pneumonitis but the concern was possible aspiration. Prior to admission the Zosyn and IV Vancomycin was stopped and Augmentin ES 600 initiated. Flagly IV was added for further coverage of the C.Diff Colitis. Her achalasia was problematic, requiring IV replacement of K rather than oral and IV antinausea medications though she plans on discharging with oral Reglan. Her hgb trended downward to 7.5. She was given a unit of RBCs the day prior to d/c. Her K remained mildly low and was 3.2 on the day of d/c despite 20meq IV K given in both of the 2 days prior to discharge. Another 10meq given IV before d/c. Encourage to drink OJ as tolerated and eat high potassium foods such as potatoes and bananas. Her WBC count is depressed secondary to her chemotherapy; 2.46 on admission with a avril of 1.68. On day of d/c her WBC count was 2.25. She will complete a 10 day course of vancocin for C.Diff colitis. Her stools were starting to be loosely formed. F/U with PCP in 1 week Schedule appt with [facility] for esophageal dilation. Home Meds and New Rx's Prescriptions: New loperamide 2 mg Capsule 2 mg PO QLOOSE PRNQty: 0 RF: 0 vancomycin [Vancocin] 125 mg capsule 125 mg PO QID Qty: 22 RF: 0 metoclopramide HCl [Reglan] 10 mg tablet 10 mg PO QAC Qty: 30 RF: 0 pramipexole [Mirapex] 0.25 mg tablet 0.25 mg PO QHS Qty: 14 RF: 0 Continued levothyroxine [Synthroid] 112 MCG tablet 150 mcg PO DAILY RF: 0 cyclobenzaprine 10 MG tablet 10 mg PO HS PRN PRNRF: 0 omeprazole 40 mg Capsule,Delayed Release(Dr/Ec) 40 mg PO DAILY RF: 0 cyanocobalamin (vitamin B-12) 1,000 mcg Tablet, Sublingual 1,000 mcg PO DAILY RF: 0 zolpidem 5 mg Tablet 5 mg PO HS RF: 0 metoprolol succinate 25 mg Tablet Extended Release 24 Hr 25 mg PO DAILY RF: 0 carbidopa-levodopa 25-100 mg Tablet 1 tab PO HS RF: 0 Viibryd 40 mg Tablet 40 mg PO DAILY RF: 0 lorazepam 1 mg Tablet 1 mg PO BID PRNRF: 0 folic acid 1 mg Tablet 1 mg PO DAILY RF: 0 hydrocodone-acetaminophen 10-325 mg Tablet 1 tab PO TID RF: 0 Discontinued enalapril maleate 5 mg Tablet 5 mg PO DAILY RF: 0 Discharge Instructions Activity:: Activity as Tolerated Equipment/Supplies:: No Equipment Needed Diet:: As Tolerated DS: Summary Time Spent with Patient providing and/or coordinating discharge services: Greater than 30 minutes Status at Discharge Functional status at discharge: independent ambulation Overall status at discharge: patient is progressing back to baseline Mental Status: mental status grossly normal Speech and Movement: speech and movement normal Mood: congruent mood Affect: normal affect Exam Const General: cooperative and no acute distress Nutritional Appearance: overweight Orientation: alert and oriented x3 Neck Neck: full ROM and no JVD Resp Effort & Inspection: normal respiratory effort Auscultation: clear to auscultation bilaterally Cardio Rate: regular rate Rhythm: regular rhythm Heart Sounds: S1 normal and S2 normal GI Palpation: soft and nontender Auscultation: normal bowel sounds Skin General skin exam: no rashes or lesions noted Extrem General: no pedal edema and no calf tenderness Psych Mental Status: mental status grossly normal Speech and Movement: speech and movement normal Mood: congruent mood Affect: normal affect Attitude: cooperative DS: Data Vitals/I&O Vitals and I&O: Vital Signs Temperature 36.5 C 09/28/20 07:35 Temperature Source Temporal Artery Scan 09/28/20 07:35 Pulse 81 09/28/20 07:35 Pulse Rhythm Regular 09/28/20 04:27 Pulse 93 H 09/25/20 11:34 Respiratory Rate 17 09/28/20 07:35 Respiratory Effort Non-Labored 09/28/20 04:27 Respiratory Depth Normal 09/28/20 04:27 Respiratory Pattern Normal 09/28/20 04:27 Blood Pressure 148/84 H 09/28/20 07:35 Blood Pressure Mean 75 09/25/20 11:34 Blood Pressure Position Supine 09/24/20 07:30 Pulse Oximetry 96 09/28/20 07:35 Oxygen Delivery Method Room Air 09/28/20 07:35 Oxygen Flow Rate 0 09/28/20 07:35 Pain Level 3 09/28/20 10:03 Intake & Output 09/27/20 09/27/20 09/28/20 11:59 23:59 11:59 Intake Total 550.008 / 1670.008 820 / 1670.008 400 / 400 Output Total 500 / 1100 600 / 1100 Balance 50.008 / 570.008 220 / 570.008 400 / 400 Weight 82.3 kg 83.4 kg Intake: IV 450.008 / 570.008 120 / 570.008 100 / 100 Oral 100 / 800 400 / 800 300 / 300 Blood Product 300 / 300 Rbc Leuko Reduced Unit 300 / 300 [id number] Output: Urine 500 / 1100 600 / 1100 Other: Urine Color Dark Bhavya Straw Urine Appearance Clear Clear Clear Urine Odor None None Comment patient reports voiding multiple times in toilet, nurse added measuring hat at this time. Pt reports voiding independently in bathroom several times throughout the day. Stool Characteristics Liquid Voiding Methods Toilet Toilet Data Completed and Pending Labs on day of discharge: Labs from last 24 hours 09/28/20 09/28/20 09/27/20 06:50 06:50 11:41 WBC 2.25 L D RBC 2.99 L Hgb 9.2 L Hct 27.4 L MCV 91.6 MCH 30.8 MCHC 33.6 RDW 14.4 Plt Count 301 MPV 10.9 Immature Gran % 2.2 Neutrophils % 57.4 Lymphocytes % 28.9 Monocytes % 9.8 Eosinophils % 0.4 Basophils % 1.3 Nucleated RBC % 0 Absolute Neutrophils 1.29 Absolute Lymphocytes 0.65 L Absolute Monocytes 0.22 Absolute Eosinophils 0.01 Absolute Basophils 0.03 Sodium 144 Potassium 3.2 L Chloride 112 H Carbon Dioxide 20.7 L Anion Gap 11.3 H BUN 7 Creatinine 1.8 H Estimated GFR/1.73 m2 29.66 Glucose 98 Calcium 8.1 L Patient ABO/Rh AB Positive Antibody Screen NEGATIVE Crossmatch See Detail Preliminary micro results at discharge 09/23/20 10:45 Blood Culture - Preliminary Blood NO GROWTH 96 HOURS PFSH Medical History Achalasia Colitis Depression Esophageal dysphagia Hypothyroidism Leucopenia Palliative care patient Pneumonitis Prerenal acute renal failure Restless leg syndrome Septic shock Septic shock Triple negative malignant neoplasm of breast Social History Smoking/Tobacco Use Status: Former Tobacco Use Smoking risk assessment performed?: Yes Alcohol Intake: never Drug use: Never Substance use type: does not use Do you feel safe at home: Yes Do you feel safe in your relationship?: Yes
[2020-09-28] MEDS: Levothyroxine 75 MCG TAB 150 MCG PO (11:09)
[2020-09-28] MEDS: POTASSIUM CHLORIDE 10 MEQ/100 ML BAG 100 MEQ IVPB (11:09)
[2020-09-28] MEDS: Heparin 500 UNITS/5 ML SYRINGE IVP (12:40)
--- NOTE | 2020-09-28 16:45 | PDOC.CMDIS ---
- If Service Date Differs Date of service: 09/28/20 Time of Service: 16:45 LACE Index Scoring Tool - Questions: Length of Stay (in days): 4 - 6 Acuity (Admit via E.D.?): Yes Comorbidities: Any Tumor, Liver or Renal Disease E.D. Visits: 3 - Answers: Total Score: 15 Risk of Readmission: High Risk Care Management Discharge Reason for Hospitalization: Acute Renal Failure Discharge Plan: Virginia will return home today with no services. Her mother will drive her home via private vehicle. She will follow up with her PCP and discharge plan of care. She is happy to be going home. Patient/Family Education Needs: Review discharge instructions regarding activity levels and medications, discussion of self care needs and goals of care.
== END 2020-09-28 13:51 | disposition home or self-care (01) | DRG 871 ==
LOC: ER 23:00 → ICU 23:20 → MS 09-25 16:14
PROVIDERS: Internal Medicine; Admitting Provider Family Medicine; Emergency Provider Nurse Practitioner Acute Care; PCP Family Medicine; Visit Provider Family Medicine
DX: A41.9 Sepsis, unspecified organism (principal); J18.9 Pneumonia, unspecified organism; R65.21 Severe sepsis with septic shock; D84.821 Immunodeficiency due to drugs; C77.3 Secondary and unspecified malignant neoplasm of axilla and upper limb lymph nodes; A04.72 Enterocolitis due to Clostridium difficile, not specified as recurrent; N17.9 Acute kidney failure, unspecified; Z20.822 Contact with and (suspected) exposure to COVID-19; N18.9 Chronic kidney disease, unspecified; K22.0 Achalasia of cardia; G25.81 Restless legs syndrome; C50.911 Malignant neoplasm of unspecified site of right female breast; T45.1X5A Adverse effect of antineoplastic and immunosuppressive drugs, initial encounter; F32.9 Major depressive disorder, single episode, unspecified; E03.9 Hypothyroidism, unspecified; G89.29 Other chronic pain; K21.9 Gastro-esophageal reflux disease without esophagitis; E86.0 Dehydration; D64.9 Anemia, unspecified; D70.1 Agranulocytosis secondary to cancer chemotherapy; E87.6 Hypokalemia; F50.89 Other specified eating disorder
CPT/HCPCS: 36415; 36591; 71250; 80048; 80053; 84145; 86850; 86900; 86901; 86920; 86945; 87040; 87493; 87505; 87635; 96365; 96366; 96367; 96368; 96374; 96375; 97161; 97530; 99285; 70450; 74176; 80202; 81003; 81015; 82607; 82728; 82746; 83540; 83550; 83605; 83735; 85014; 85018; 85025; 86140; 87086; 99223; 99232; 99233; 99239; 99284; 99291; J1200; J1644; J1885; J2405; J2543; J2765; J3480; J3490; P9016